=== PATIENT | male | born 1950 | race Hispanic/Latino ===

== ENCOUNTER 2018-05-07 10:20 | Day surgery (SDC) | payer OTHER ==
--- OUTSIDE RECORDS SUMMARY | 2018-05-07 10:26 | XMS REPORT | Clinical Summary ---
:1950 Author Organization [facility] Address [address] [place] [address] Phone Care Team Providers Name Role Phone Unavailable Primary Care Provider Unavailable Allergies No Known Allergies Current Medications Prescription Sig. Disp. Refills Start Date End Date Status omega-3 fatty Take 1,000 mg Active acids-vitamin E by mouth. 1,000 mg Cap [id number] Take by Active lic acid mouth. (FMOERATZDUAG-ILMA-N INERALS-FOLIC ACID) 3,500-18-0.4 unit-mg-mg Chew tacrolimus (PROGRAF) Take 2 360 capsule 3 04/09/2018 Active 1 MG capsules (2 9 capsuleIndications: mg total) by Status post liver mouth 2 (two) transplantation times daily. (HCC) predniSONE Take 3 90 tablet 0 04/26/2018 Active (DELTASONE) 20 MG tablets (60 8 tablet mg total) by mouth daily for 30 days. mycophenolate Take 2 360 capsule 3 04/26/2018 Active (CELLCEPT) 250 mg capsules (500 9 capsuleIndications: mg total) by Status post liver mouth 2 (two) transplantation times daily. (HCC) magnesium oxide Take 400 mg Discontinued (MAG-OX) 400 mg by mouth 8 tablet daily. calcium Take 1 tablet Discontinued carbonate-vitamin D3 by mouth 8 (CALCIUM-VITAMIN D) daily. 500 mg(1,250mg) -200 unit per tablet tacrolimus (PROGRAF) Take 1 mg by Discontinued 1 MG capsule mouth 2 (two) 8 times daily. mycophenolate Take 1 60 capsule 0 11/08/2016 Discontinued (CELLCEPT) 250 mg capsule (250 8 capsuleIndications: mg total) by Status post liver mouth 2 (two) transplantation times daily. (HCC) tacrolimus (PROGRAF) Take 1 60 capsule 0 11/08/2016 Discontinued 1 MG capsule (1 mg 8 capsuleIndications: total) by Status post liver mouth 2 (two) transplantation times daily. (HCC) mycophenolate Take 250 mg Discontinued (CELLCEPT) 250 mg by mouth 2 8 capsule (two) times daily. tacrolimus (PROGRAF) Take 1 180 capsule 3 04/09/2018 Discontinued 1 MG capsule (1 mg 8 capsuleIndications: total) by Status post liver mouth 2 (two) transplantation times daily. (HCC) mycophenolate Take 1 180 capsule 3 04/09/2018 Discontinued (CELLCEPT) 250 mg capsule (250 8 capsuleIndications: mg total) by Status post liver mouth 2 (two) transplantation times daily. (HCC) Active Problems Problem Noted Date Immunosuppression (HCC) 12/07/2014 Last Assessment & Plan: He is on tacrolimus and CellCept. Screening for malignant neoplasm 12/07/2014 Last Assessment & Plan: He will schedule a colonoscopy with his local assistant credit manager. He is due for an annual skin check with dermatology. 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 The synthetic function of the liver is well preserved. Hepatitis C 07/22/2013 Last Assessment & Plan: He was treated in 2008 and achieved SVR (cure). HCV RNA today. 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 He is able to exercise without trouble. Healthcare maintenance 07/22/2013 Last Assessment & Plan: Instruction discussed - see below. Encounters Date Type Specialty Care Team Description 05/07/2018 Telephone Transplant Sharon Tijerina Follow-up (open Hepatology F, RN fracture) 05/06/2018 Orders Only Transplant Aydee Jama Status post liver Hepatology MD Laurita transplantation (HCC);Encounter for long-term (current) use of high-risk medication;Disorder of magnesium metabolism;Encounter for therapeutic drug monitoring 05/06/2018 Telephone Transplant eR Mclean on finger Hepatology MERY Olsen 05/05/2018 Telephone Transplant Alda Foreman Medication Management Hepatology P, RN (Tylenol and Levoquin) 05/01/2018 Telephone Transplant Sharon Tijerina Follow-up Hepatology F, RN 04/26/2018 Orders Only Transplant Avtar Tijerinaa Status post liver Hepatology F, RN transplantation (HCC) 04/26/2018 Telephone Transplant Sharon Tijerina Medication Dose Change Hepatology F, RN 04/25/2018 Orders Only Transplant Aydee Jama Status post liver Hepatology MD Laurita transplantation (HCC);Encounter for long-term (current) use of high-risk medication;Disorder of magnesium metabolism;Encounter for therapeutic drug monitoring 04/24/2018 Telephone Transplant Sharon Tijerina Follow-up Hepatology F, RN 04/24/2018 Telephone Transplant Sharon Tijerina health care concerns Hepatology F, RN 04/22/2018 Hospital Encounter Crisotbal Perez Status post liver transplantation (HCC) 04/19/2018 Orders Only Transplant Bhargavi Waldron RN 04/09/2018 Follow-Up Transplant Marco Larson Status post liver Hepatology MD Trev transplantation (HCC) Cristobal Perez MD 04/09/2018 Orders Only Transplant Aydee Jama Status post liver Hepatology MD Laurita transplantation (HCC);Encounter for long-term (current) use of high-risk medication;Disorder of magnesium metabolism;Encounter for therapeutic drug monitoring 04/09/2018 Orders Only Transplant Avtar Tijerinaa Status post liver Hepatology Rosibel RN transplantation (HCC) 04/09/2018 Documentation Transplant Anibal Tysonology An 04/08/2018 Telephone Transplant Avtar Tijerinaa Follow-up Hepatology F, RN 04/04/2018 Documentation Transplant [place], Hepatology An 04/04/2018 Orders Only Transplant Avtar Tijerinaa Status post liver Hepatology F, RN transplantation (HCC) (Primary Dx);Encounter for long-term (current) use of high-risk medication;Disorder of magnesium metabolism;Encounter for therapeutic drug monitoring 06/25/2017 Documentation Transplant [place], Hepatology An after 05/06/2017 Social History Tobacco Use Types Packs/Day Years Used Date Never Smoker Smokeless Tobacco: Never Used Alcohol Use Drinks/Week oz/Week Comments No Sex Assigned at Date Recorded Not on file Last Filed Vital Signs Vital Sign Reading Time Taken Blood Pressure 121/77 04/22/2018 9:31 PM CDT Pulse 68 04/22/2018 9:31 PM CDT Temperature 36.6 C (97.8 F) 04/22/2018 3:15 PM CDT Respiratory Rate 16 04/22/2018 9:31 PM CDT Oxygen Saturation 100% 04/22/2018 5:39 PM CDT Inhaled Oxygen Concentration - - Weight 66.1 kg (145 lb 12.8 oz) 04/22/2018 10:05 AM CDT Height 175.3 cm (5' 9") 04/22/2018 10:05 AM CDT Body Mass Index 21.53 04/22/2018 10:05 AM CDT Plan of Treatment Health Maintenance Due Date Last Done Comments INFLUENZA VACCINE 07/15/2018 Results CBC with platelet count + automated diff (05/06/2018 6:45 AM)Only the most recent of3 resultswithin the time period is included. Component Value Ref Range WBC 11.1 (H) 3.5 - 10.5 K/L RBC 4.20 (L) 4.63 - 6.08 M/L Hemoglobin 12.5 (L) 13.7 - 17.5 GM/DL Hematocrit 38.2 (L) 40.1 - 51.0 % MCV 91.0 79.0 - 92.2 fL MCH 29.8 25.7 - 32.2 pg MCHC 32.7 32.3 - 36.5 GM/DL RDW 15.5 (H) 11.6 - 14.4 % Platelets 268 150 - 450 K/CU MM MPV 12.1 9.4 - 12.4 fL nRBC 0 0 - 0 /100 WBC % Neutros 66 % % Lymphs 25 % % Monos 9 % % Eos 0 % % Baso 0 % # Neutros 7.32 (H) 1.78 - 5.38 K/L # Lymphs 2.72 1.32 - 3.57 K/L # Monos 0.97 (H) 0.30 - 0.82 K/L # Eos 0.00 (L) 0.04 - 0.54 K/L # Baso 0.01 0.01 - 0.08 K/L Immature Granulocytes-Relative 1 0 - 1 % Specimen Performing Laboratory Blood [facility] [address] [address] Tacrolimus level (05/06/2018 6:45 AM)Only the most recent of3 resultswithin the time period is included. Component Value Ref Range Tacrolimus Lvl 7.9 (L) 10.0 - 20.0 ng/mL Specimen Performing Laboratory Blood [address] [address] CBC with platelet count + automated diff (05/06/2018 6:45 AM)Only the most recent of3 resultswithin the time period is included. Specimen Performing Laboratory Blood [facility]) Narrative The following orders were created for panel order CBC with platelet count + automated diff. Procedure Abnormality Status --------- ------ CBC with platelet count ...[[id number]]AbnormalFinal result Please view results for these tests on the individual orders. Magnesium (05/06/2018 6:44 AM)Only the most recent of3 resultswithin the time period is included. Component Value Ref Range Magnesium 2.0 1.6 - 2.6 mg/dL Specimen Performing Laboratory Blood [address] [address] Bilirubin, direct (05/06/2018 6:44 AM)Only the most recent of3 resultswithin the time period is included. Component Value Ref Range Bilirubin, Direct 0.9 (H) 0.1 - 0.5 mg/dL Specimen Performing Laboratory Blood [address] [address] Comprehensive metabolic panel (05/06/2018 6:44 AM)Only the most recent of3 resultswithin the time period is included. Component Value Ref Range Protein, Total 7.3 6.0 - 8.3 gm/dL Albumin 3.7 3.5 - 5.0 g/dL Alkaline Phosphatase 392 (H) 40 - 150 U/L Total Bilirubin 1.3 (H) 0.2 - 1.2 mg/dL Sodium 138 136 - 145 meq/L Potassium 3.6 3.5 - 5.1 meq/L Chloride 107 98 - 107 meq/L CO2 21 (L) 22 - 29 meq/L BUN 18 7 - 21 mg/dL Creatinine 0.82 0.57 - 1.25 mg/dL Glucose 114 (H) 70 - 105 mg/dL Calcium 9.1 8.4 - 10.2 mg/dL AST 57 (H) 5 - 34 U/L ALT 123 (H) 6 - 55 U/L EGFR 94Comment: ESTIMATED GFR IS NOT ACCURATE mL/min/1.73 sq m CREATININE CLEARANCE IN PREDICTING GLOMERULAR FILTRATION RATE. ESTIMATED GFR IS NOT APPLICABLE FOR DIALYSIS PATIENTS. Specimen Performing Laboratory Blood [facility] [address] [address] Tissue Exam (04/22/2018 11:01 PM) Component Value Ref Range Case Report Surgical Pathology Report Case: [id number] Authorizing Provider:Cristobal Perez MD Collected: 04/22/20182300 Ordering Location: [facility] Radiology Main Received: 04/22/20182304 Pathologist: Roney Mcdonald MD Specimen:Biopsy, Liver, Tx Bx ADDENDUM The addendum is being issued to report the results of immunostain for CK7 and C4d. The diagnosis is unchanged. RESULTS Immunostain for CK7 shows confirms focal absence of bile ducts. There is cholangiolar proliferation and biliary metaplasia of the hepatocytes. Immunostain for C4d is negative for significant staining. [address], [address] DIAGNOSIS LIVER ALLOGRAFT, ULTRASOUND-GUIDED NEEDLE BIOPSY (S/P OLT IN 2006) - ACUTE T-CELL MEDIATED REJECTION - CHRONIC DUCTOPENIC REJECTION - PORTAL/PERIPORTAL AND FOCAL BRIDGING FIBROSIS - SEE COMMENT Signing Pathologist Direct Phone Line: [phone] COMMENT Immunostains for C4d and CK7 are being performed and the results will be reported as an addendum. CPT Code(s) 57908, 83472 X 4 CLINICAL HISTORY S/P OLT for HCV in 2006, treated in 2010 now with SVR, presents with increase in transaminases and alkaline phosphatase SPECIMEN SOURCE Liver core biopsy MICROSCOPIC DESCRIPTION Section shows four variably sized cores of liver parenchyma with greater than 10 portal tracts and is adequate for evaluation. There is moderate portal lymphoplasmacytic inflammation with mild interface hepatitis. The bile ducts show moderate to marked bile duct damage with lymphocytic cholangitis. Ductopenia is noted in 11 of 19 portal tracts. Cholangiolar proliferation with associated neutrophils is seen. There is mild to moderate lobular inflammation. No significant steatosis, ballooning degeneration or Camila Denk hyaline is present. Small clusters of sinusoidal foam cells are present. Rare clu ster of foam cells is seen in the portal tract.There is canalicular cholestasis. Trichrome stain shows portal/periportal and focal bridging fibrosis. Iron stain shows 2+ to very focal 3+ staining in the hepatocytes. No hyaline globules are seen on PAS with diastase stain. Special stains: trichrome, reticulin, iron and PAS with diastase SPECIAL STUDIES The following special studies were performed on this case and the interpretation is incorporated in the diagnostic report above: The immunohistochemistry test was developed and its performance characteristics determined by [facility], Pathology Laboratory. It has not been cleared or approved by the U.S. Food and Drug Administration. The FDA has determined that such clearance or approval is not necessary. The test is used for clinical purposes. It should not be regarded as investigational or for research. This laboratory is certified under the Clinical Laboratory Improvement Amendments of 1988 (CLIA-88) as qualified to perform high complexity clinical laboratory testing. Specimen Performing Laboratory Tissue - Biopsy, [place] [address] US liver biopsy (04/22/2018 4:00 PM) Specimen Performing Laboratory GE RIS Narrative FINAL REPORT Biopsy: Pertinent clinical information: Ultrasound guided random transplant liver biopsy Modality: Sonography Conscious Sedation : Versed 0.5 mg and fentanyl 25 mcg intravenously During the procedure with conscious sedation, the patient was monitored continuously with pulse oximetry and electrocardiography by the attending radiologist and nursing personnel. Physician Patient face to face intraservice time: 25 minutes Anesthesia:Two percent Lidocaine injected subcutaneously at the insertion site. Approach: Right midaxillary intercostal Pathology specimen sent: Two core 16-gauge specimen Technique:After informed written consent was obtained, the patient was prepped and draped in the usual sterile manner.Access was obtained using sonographic guidance.A 16-gauge core biopsy needle was advanced into the transplant liver.Two passes were made through the liver. The patient tolerated the procedure well. The patient was monitored by a nurse during the procedure.Oxygen saturation, an ECG and blood pressure monitoring was performed throughout the procedure. Impression: Successful, uncomplicated ultrasound-guided random transplant liver biopsy Signed: Marie Alexandre MD Report Verified Date/Time:04/22/2018 17:39:27 Reading Location: [facility] [id number] Ultrasound Reading Room Procedure Note Interface, External Ris In - 04/22/2018 5:41 PM CDT FINAL REPORT Biopsy: Pertinent clinical information: Ultrasound guided random transplant liver biopsy Modality: Sonography Conscious Sedation : Versed 0.5 mg and fentanyl 25 mcg intravenously During the procedure with conscious sedation, the patient was monitored continuously with pulse oximetry and electrocardiography by the attending radiologist and nursing personnel. Physician Patient face to face intraservice time: 25 minutes Anesthesia: Two percent Lidocaine injected subcutaneously at the insertion site. Approach: Right midaxillary intercostal Pathology specimen sent: Two core 16-gauge specimen Technique: After informed written consent was obtained, the patient was prepped and draped in the usual sterile manner. Access was obtained using sonographic guidance. A 16-gauge core biopsy needle was advanced into the transplant liver. Two passes were made through the liver. The patient tolerated the procedure well. The patient was monitored by a nurse during the procedure. Oxygen saturation, an ECG and blood pressure monitoring was performed throughout the procedure. Impression: Successful, uncomplicated ultrasound-guided random transplant liver biopsy Signed: Marie Alexandre MD Report Verified Date/Time: 04/22/2018 17:39:27 Reading Location: [address] Ultrasound Reading Room /aPTT (04/22/2018 10:24 AM) Component Value Ref Range Protime 15.1 (H) 11.7 - 14.7 seconds INR 1.2 <=5.9 PTT 32.0 22.5 - 36.0 seconds Specimen Performing Laboratory Blood [address] [address] Narrative RECOMMENDED COUMADIN/WARFARIN INR THERAPY RANGES STANDARD DOSE: 2.0 - 3.0 Includes: PROPHYLAXIS for venous thrombosis, systemic embolization; TREATMENT for venous thrombosis and/or pulmonary embolus. HIGH RISK: Target INR is 2.5-3.5 for patients with mechanical heart valves. Platelet count (04/22/2018 10:24 AM) Component Value Ref Range Platelets 269 150 - 450 K/CU MM Specimen Performing Laboratory Blood [address] [address] Hepatitis C PCR, Quantitative (04/09/2018 8:22 AM) Component Value Ref Range HCV PCR, Quantitative HCV RNA not detected HCV RNA not detected Specimen Performing Laboratory Blood [address] [address] Narrative This test uses a Real-Time Polymerase Chain Reaction (RT-PCR) methodology and was performed using [employer] Ampliprep/NICOLETTE TaqMan HCV test kit version 2.0 ( [employer]). Reportable range for this assay is 15 - 100,000,000 IU per mL (1.18 - 8.00 Log IU/mL). Phosphorus (04/09/2018 8:22 AM) Component Value Ref Range Phosphorus 2.1 (L) 2.3 - 4.7 mg/dL Specimen Performing Laboratory Blood [address] [address] after 05/06/2017
--- OUTSIDE RECORDS SUMMARY | 2018-05-07 10:27 | XMS REPORT ---
:1950 [facility] Address [address] [place] [address] Dr. Mcdaniel [address] [place] [id number] Care Team Providers Name Role Phone SILVIA ZENDEJAS Unavailable Unavailable GISEL PEREZ Unavailable Unavailable Problems This patient has no known problems. Allergies, Adverse Reactions, Alerts This patient has no known allergies or adverse reactions. Medications This patient has no known medications. Results Test Description Test Time Test Comments Text Results Atomic Results Result Comments TISSUE EXAM 2018-05-06 13:45:00 Surgical Pathology Report Case: [id number] Authorizing Provider: Gisel Perez MD Collected: 04/22/20182300 Ordering Location: [facility] Radiology Main Received: 04/22/2018 Pathologist: Roney Mcdonald MD Specimen: Biopsy, Liver, Tx Bx The addendum is being issued to report the results of immunostain for CK7 and C4d. The diagnosis is unchanged.RESULTSImmunostain for CK7 shows confirms focal absence of bile ducts. There is cholangiolar proliferation and biliary metaplasia of the hepatocytes.Immunostain for C4d is negative for significant staining. [id number], [id number] electronically signed by Roney Mcdonald MD on 05/06/2018 at 1:45 PMLIVER ALLOGRAFT, ULTRASOUND-GUIDED NEEDLE BIOPSY (S/P OLT IN 2006)- ACUTE T-CELL MEDIATED REJECTION- CHRONIC DUCTOPENIC REJECTION- PORTAL/PERIPORTAL AND FOCAL BRIDGING FIBROSIS- SEE COMMENT Signing Pathologist Direct Phone Line: [phone] signed by Roney Mcdonald MD on 04/25/2018 at 11:44 AMPreliminary result electronically signed by Roney Mcdonald MD on 04/23/2018 at 5:58 PMImmunostains for C4d and CK7 are being performed and the results will be reported as an addendum.[id number], [id number] X 4S/P OLT for HCV in 2006, treated in 2010 now with SVR, presents with increase in transaminases and alkaline phosphatase Liver core biopsySection shows four variably sized cores of liver [...] of sinusoidal foam cells are present. Rare cluster of foam cells is seen in the portal tract. 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 Trichrome stain shows portal/periportal and focal bridging fibrosis. Iron stain shows 2+ to very focal 3+ staining in the hepatocytes. No hyaline globules are seen on PAS with diastase stain.Special stains: trichrome, reticulin, iron and PAS with diastaseThe following special studies were performed on this case and the interpretation is incorporated in the diagnostic report above:The immunohistochemistry test was developed and its performance characteristics determined by [facility], Pathology Laboratory. It has not been [...] to perform high complexity clinical laboratory testing. TACROLIMUS LEVEL 2018-05-06 11:16:00 Test Item Value Reference Range Comments TACROLIMUS BLOOD (BEAKER) (test crup=162) 7.9 ng/mL 10.0-20.0 [id number] 09:17:00 Test Item Value Reference Range Comments MAGNESIUM (BEAKER) (test oias=636) 2.0 mg/dL 1.6-2.6 COMPREHENSIVE METABOLIC [id number] 09:17:00 Test Item Value Reference Range Comments TOTAL PROTEIN (BEAKER) 7.3 gm/dL 6.0-8.3 (test ssrc=335) ALBUMIN (BEAKER) (test 3.7 g/dL 3.5-5.0 bhjo=2141) ALKALINE PHOSPHATASE 392 U/L 40-150 (BEAKER) (test tndp=073) BILIRUBIN TOTAL (BEAKER) 1.3 mg/dL 0.2-1.2 (test xoza=084) SODIUM (BEAKER) (test 138 meq/L 136-145 nmjm=060) POTASSIUM (BEAKER) (test 3.6 meq/L 3.5-5.1 bigj=087) CHLORIDE (BEAKER) (test 107 meq/L 98-107 bzss=746) CO2 (BEAKER) (test 21 meq/L 22-29 ovbq=564) BLOOD UREA NITROGEN 18 mg/dL 7-21 (BEAKER) (test fiov=852) CREATININE (BEAKER) (test 0.82 mg/dL 0.57-1.25 xwue=405) GLUCOSE RANDOM (BEAKER) 114 mg/dL 70-105 (test ibpf=553) CALCIUM (BEAKER) (test 9.1 mg/dL 8.4-10.2 lwzv=865) AST (SGOT) (BEAKER) (test 57 U/L 5-34 hvkr=598) ALT (SGPT) (BEAKER) (test 123 U/L 6-55 xisr=859) EGFR (BEAKER) (test 94 mL/min/1.73 sq m ESTIMATED GFR IS NOT ttbc=0978) ACCURATE CREATININE CLEARANCE IN PREDICTING GLOMERULAR FILTRATION RATE. ESTIMATED GFR IS NOT APPLICABLE FOR DIALYSIS PATIENTS. BILIRUBIN, [id number] 09:17:00 Test Item Value Reference Range Comments BILIRUBIN DIRECT (BEAKER) (test wcjf=688) 0.9 mg/dL 0.1-0.5 CBC W/PLT COUNT & AUTO [id number] 08:29:00 Test Item Value Reference Range Comments WHITE BLOOD CELL COUNT (BEAKER) (test lxip=280) 11.1 K/ L 3.5-10.5 RED BLOOD CELL COUNT (BEAKER) (test mzwd=870) 4.20 M/ L 4.63-6.08 HEMOGLOBIN (BEAKER) (test tegu=973) 12.5 GM/DL 13.7-17.5 HEMATOCRIT (BEAKER) (test kzur=067) 38.2 % 40.1-51.0 MEAN CORPUSCULAR VOLUME (BEAKER) (test syrj=429) 91.0 fL 79.0-92.2 MEAN CORPUSCULAR HEMOGLOBIN (BEAKER) (test 29.8 pg 25.7-32.2 ddrp=917) MEAN CORPUSCULAR HEMOGLOBIN CONC (BEAKER) (test 32.7 GM/DL 32.3-36.5 ejhv=462) RED CELL DISTRIBUTION WIDTH (BEAKER) (test 15.5 % 11.6-14.4 dpyg=753) PLATELET COUNT (BEAKER) (test cnwi=946) 268 K/CU MM 150-450 MEAN PLATELET VOLUME (BEAKER) (test bnrh=250) 12.1 fL 9.4-12.4 NUCLEATED RED BLOOD CELLS (BEAKER) (test 0 /100 WBC 0-0 cqls=802) NEUTROPHILS RELATIVE PERCENT (BEAKER) (test 66 % zlym=363) LYMPHOCYTES RELATIVE PERCENT (BEAKER) (test 25 % jfyd=704) MONOCYTES RELATIVE PERCENT (BEAKER) (test 9 % hzpn=408) EOSINOPHILS RELATIVE PERCENT (BEAKER) (test 0 % czet=653) BASOPHILS RELATIVE PERCENT (BEAKER) (test 0 % wifz=425) NEUTROPHILS ABSOLUTE COUNT (BEAKER) (test 7.32 K/ L 1.78-5.38 uqyq=649) LYMPHOCYTES ABSOLUTE COUNT (BEAKER) (test 2.72 K/ L 1.32-3.57 hhbq=916) MONOCYTES ABSOLUTE COUNT (BEAKER) (test 0.97 K/ L 0.30-0.82 jexh=107) EOSINOPHILS ABSOLUTE COUNT (BEAKER) (test 0.00 K/ L 0.04-0.54 oqmx=070) BASOPHILS ABSOLUTE COUNT (BEAKER) (test 0.01 K/ L 0.01-0.08 potm=288) IMMATURE GRANULOCYTES-RELATIVE PERCENT (BEAKER) 1 % 0-1 (test vynv=0899) TACROLIMUS [id number] 12:29:00 Test Item Value Reference Range Comments TACROLIMUS BLOOD (BEAKER) (test ergk=080) 12.9 ng/mL 10.0-20.0 [id number] 09:28:00 Test Item Value Reference Range Comments MAGNESIUM (BEAKER) (test dpwd=540) 1.7 mg/dL 1.6-2.6 COMPREHENSIVE METABOLIC [id number] 09:28:00 Test Item Value Reference Range Comments TOTAL PROTEIN (BEAKER) 8.3 gm/dL 6.0-8.3 (test aqod=412) ALBUMIN (BEAKER) (test 3.9 g/dL 3.5-5.0 gbzs=2235) ALKALINE PHOSPHATASE 541 U/L 40-150 (BEAKER) (test tfdo=022) BILIRUBIN TOTAL (BEAKER) 1.5 mg/dL 0.2-1.2 (test sujf=875) SODIUM (BEAKER) (test 139 meq/L 136-145 xbsa=769) POTASSIUM (BEAKER) (test 3.6 meq/L 3.5-5.1 fgvs=188) CHLORIDE (BEAKER) (test 106 meq/L 98-107 mqwd=830) CO2 (BEAKER) (test 23 meq/L 22-29 zogc=264) BLOOD UREA NITROGEN 14 mg/dL 7-21 (BEAKER) (test jkpu=568) CREATININE (BEAKER) (test 0.83 mg/dL 0.57-1.25 foct=793) GLUCOSE RANDOM (BEAKER) 106 mg/dL 70-105 (test msiz=893) CALCIUM (BEAKER) (test 9.6 mg/dL 8.4-10.2 basb=222) AST (SGOT) (BEAKER) (test 90 U/L 5-34 mnbc=555) ALT (SGPT) (BEAKER) (test 88 U/L 6-55 dtye=192) EGFR (BEAKER) (test 93 mL/min/1.73 sq m ESTIMATED GFR IS NOT tdma=7851) ACCURATE CREATININE CLEARANCE IN PREDICTING GLOMERULAR FILTRATION RATE. ESTIMATED GFR IS NOT APPLICABLE FOR DIALYSIS PATIENTS. BILIRUBIN, [id number] 09:28:00 Test Item Value Reference Range Comments BILIRUBIN DIRECT (BEAKER) (test ryzb=580) 1.0 mg/dL 0.1-0.5 CBC W/PLT COUNT & AUTO [id number] 08:52:00 Test Item Value Reference Range Comments WHITE BLOOD CELL COUNT (BEAKER) (test mtol=377) 5.7 K/ L 3.5-10.5 RED BLOOD CELL COUNT (BEAKER) (test bjiq=963) 4.44 M/ L 4.63-6.08 HEMOGLOBIN (BEAKER) (test vmsf=489) 13.3 GM/DL 13.7-17.5 HEMATOCRIT (BEAKER) (test gvvl=658) 41.2 % 40.1-51.0 MEAN CORPUSCULAR VOLUME (BEAKER) (test cspw=655) 92.8 fL 79.0-92.2 MEAN CORPUSCULAR HEMOGLOBIN (BEAKER) (test 30.0 pg 25.7-32.2 bkuc=902) MEAN CORPUSCULAR HEMOGLOBIN CONC (BEAKER) (test 32.3 GM/DL 32.3-36.5 aqjs=881) RED CELL DISTRIBUTION WIDTH (BEAKER) (test 15.3 % 11.6-14.4 ntid=682) PLATELET COUNT (BEAKER) (test ixmj=689) 249 K/CU MM 150-450 MEAN PLATELET VOLUME (BEAKER) (test gfkf=157) 12.0 fL 9.4-12.4 NUCLEATED RED BLOOD CELLS (BEAKER) (test 0 /100 WBC 0-0 fkfb=365) NEUTROPHILS RELATIVE PERCENT (BEAKER) (test 41 % lxvk=719) LYMPHOCYTES RELATIVE PERCENT (BEAKER) (test 43 % mzmx=847) MONOCYTES RELATIVE PERCENT (BEAKER) (test 12 % olfk=665) EOSINOPHILS RELATIVE PERCENT (BEAKER) (test 3 % eyvo=866) BASOPHILS RELATIVE PERCENT (BEAKER) (test 2 % dqnn=797) NEUTROPHILS ABSOLUTE COUNT (BEAKER) (test 2.35 K/ L 1.78-5.38 oqgl=004) LYMPHOCYTES ABSOLUTE COUNT (BEAKER) (test 2.45 K/ L 1.32-3.57 brjv=732) MONOCYTES ABSOLUTE COUNT (BEAKER) (test 0.67 K/ L 0.30-0.82 nqoq=016) EOSINOPHILS ABSOLUTE COUNT (BEAKER) (test 0.16 K/ L 0.04-0.54 scjn=557) BASOPHILS ABSOLUTE COUNT (BEAKER) (test 0.10 K/ L 0.01-0.08 uubd=156) IMMATURE GRANULOCYTES-RELATIVE PERCENT (BEAKER) 0 % 0-1 (test mlaq=4237) U/S, BIOPSY, [id number] 17:39:00Reason for Exam:->liver transplant Elevated liver enzymesLocation->[facility] Biopsy: Pertinent clinical information: Ultrasound guided random transplant liver biopsyModality: SonographyConscious Sedation : Versed 0.5 mg and fentanyl 25 mcg intravenouslyDuring the procedure with conscious sedation, the patient was monitored continuously withpulse oximetry and electrocardiography by the attending radiologist and nursing personnel.Physician Patient face to face intraservice time: 25 minutesAnesthesia : Two percent Lidocaine injected subcutaneously at the insertion site.Approach : Right midaxillary intercostal Pathology specimen sent: Two [...] blood pressure monitoring was performed throughout the procedure.Impression:Successful, uncomplicated ultrasound-guided random transplant liver biopsy Signed: Herrera Alexandre Verified Date/Time: 04/22/2018 17:39:27 Reading Location: [address] Ultrasound Reading Room Electronically signed by: HERRERA ALEXANDRE M.D. on 06/2018 05:39 [id number] 10:56:00 Test Item Value Reference Range Comments PROTIME (BEAKER) (test cynl=310) 15.1 seconds 11.7-14.7 INR (BEAKER) (test yqql=211) 1.2 <=5.9 PARTIAL THROMBOPLASTIN TIME (BEAKER) (test 32.0 seconds 22.5-36.0 pend=955) RECOMMENDED COUMADIN/WARFARIN INR THERAPY RANGESSTANDARD DOSE: 2.0 - 3.0 Includes: PROPHYLAXIS forvenous thrombosis, systemic embolization; TREATMENT for venous thrombosis and/or pulmonary embolus.HIGH RISK: Target INR is 2.5-3.5 for patients with mechanical heart valves.PLATELET [id number] 10:44:00 Test Item Value Reference Range Comments PLATELET COUNT (BEAKER) (test hvjm=031) 269 K/CU MM 150-450 HEPATITIS C PCR, [id number] 19:20:00 Test Item Value Reference Range Comments HCV RESULT COMPONENT (BEAKER) HCV RNA not detected HCV RNA not detected (test dddc=9610) This test uses a Real-Time Polymerase Chain Reaction (RT-PCR) methodology and was performed using [employer] Ampliprep/NICOLETTE TaqMan HCV test kit version 2.0 ( [employer]).Reportable range for this assay is 15 - 100,000, 000 IU per mL (1.18 - 8.00 Log IU/mL).TACROLIMUS [id number] 12:56:00 Test Item Value Reference Range Comments TACROLIMUS BLOOD (BEAKER) (test ezpm=013) 9.4 ng/mL 10.0-20.0 [id number] 09:48:00 Test Item Value Reference Range Comments PHOSPHORUS (BEAKER) (test qypb=883) 2.1 mg/dL 2.3-4.7 [id number] 09:48:00 Test Item Value Reference Range Comments MAGNESIUM (BEAKER) (test wihx=419) 2.2 mg/dL 1.6-2.6 COMPREHENSIVE METABOLIC [id number] 09:48:00 Test Item Value Reference Range Comments TOTAL PROTEIN (BEAKER) 8.1 gm/dL 6.0-8.3 (test rbca=114) ALBUMIN (BEAKER) (test 3.8 g/dL 3.5-5.0 cxtl=2381) ALKALINE PHOSPHATASE 534 U/L 40-150 (BEAKER) (test byil=921) BILIRUBIN TOTAL (BEAKER) 1.8 mg/dL 0.2-1.2 (test jjle=553) SODIUM (BEAKER) (test 139 meq/L 136-145 qjvt=120) POTASSIUM (BEAKER) (test 4.4 meq/L 3.5-5.1 eque=930) CHLORIDE (BEAKER) (test 104 meq/L 98-107 aixu=983) CO2 (BEAKER) (test 28 meq/L 22-29 qxbe=938) BLOOD UREA NITROGEN 16 mg/dL 7-21 (BEAKER) (test kmku=924) CREATININE (BEAKER) (test 0.78 mg/dL 0.57-1.25 rrro=367) GLUCOSE RANDOM (BEAKER) 106 mg/dL 70-105 (test culw=969) CALCIUM (BEAKER) (test 9.5 mg/dL 8.4-10.2 lnod=636) AST (SGOT) (BEAKER) (test 80 U/L 5-34 iisq=175) ALT (SGPT) (BEAKER) (test 74 U/L 6-55 xamk=614) EGFR (BEAKER) (test 100 mL/min/1.73 sq ESTIMATED GFR IS NOT vgrv=7743) m ACCURATE CREATININE CLEARANCE IN PREDICTING GLOMERULAR FILTRATION RATE. ESTIMATED GFR IS NOT APPLICABLE FOR DIALYSIS PATIENTS. BILIRUBIN, [id number] 09:48:00 Test Item Value Reference Range Comments BILIRUBIN DIRECT (BEAKER) (test hfbf=468) 1.1 mg/dL 0.1-0.5 CBC W/PLT COUNT & AUTO [id number] 09:33:00 Test Item Value Reference Range Comments WHITE BLOOD CELL COUNT (BEAKER) (test gswv=574) 5.1 K/ L 3.5-10.5 RED BLOOD CELL COUNT (BEAKER) (test ncwv=309) 4.56 M/ L 4.63-6.08 HEMOGLOBIN (BEAKER) (test bcph=630) 13.6 GM/DL 13.7-17.5 HEMATOCRIT (BEAKER) (test qpiu=878) 42.9 % 40.1-51.0 MEAN CORPUSCULAR VOLUME (BEAKER) (test xwpb=628) 94.1 fL 79.0-92.2 MEAN CORPUSCULAR HEMOGLOBIN (BEAKER) (test 29.8 pg 25.7-32.2 dehs=602) MEAN CORPUSCULAR HEMOGLOBIN CONC (BEAKER) (test 31.7 GM/DL 32.3-36.5 cbzt=290) RED CELL DISTRIBUTION WIDTH (BEAKER) (test 15.6 % 11.6-14.4 nkip=749) PLATELET COUNT (BEAKER) (test fcxa=234) 251 K/CU MM 150-450 MEAN PLATELET VOLUME (BEAKER) (test lkav=903) 12.2 fL 9.4-12.4 NUCLEATED RED BLOOD CELLS (BEAKER) (test 0 /100 WBC 0-0 ksvg=349) NEUTROPHILS RELATIVE PERCENT (BEAKER) (test 42 % ekjt=575) LYMPHOCYTES RELATIVE PERCENT (BEAKER) (test 39 % hofo=258) MONOCYTES RELATIVE PERCENT (BEAKER) (test 13 % afhz=499) EOSINOPHILS RELATIVE PERCENT (BEAKER) (test 3 % avjs=340) BASOPHILS RELATIVE PERCENT (BEAKER) (test 2 % ztyf=095) NEUTROPHILS ABSOLUTE COUNT (BEAKER) (test 2.14 K/ L 1.78-5.38 xweo=763) LYMPHOCYTES ABSOLUTE COUNT (BEAKER) (test 1.99 K/ L 1.32-3.57 izhu=553) MONOCYTES ABSOLUTE COUNT (BEAKER) (test 0.63 K/ L 0.30-0.82 ktqn=241) EOSINOPHILS ABSOLUTE COUNT (BEAKER) (test 0.17 K/ L 0.04-0.54 illc=417) BASOPHILS ABSOLUTE COUNT (BEAKER) (test 0.12 K/ L 0.01-0.08 dwup=761) IMMATURE GRANULOCYTES-RELATIVE PERCENT (BEAKER) 0 % 0-1 (test pocd=7288)
[2018-05-07] MEDS ORDERED: CEFAZOLIN/SWI 1gm 1 GM/10 ML SYR ONE (11:02)
[2018-05-07 11:04] LABS: Absolute Lymphocytes (CBC) 4.3 K/uL (0.7-4.9); Absolute Neutrophil 5.7 K/uL (1.8-8.0); Basophils % 0.1 % (0-1.3); Eosinophils % 0.2 % (0-4.4); Hematocrit 38.8 % (39.6-49.0); Lymphocytes % 38.9 % (15.3-44.8); MCH 31.1 pg (27.0-35.0); MCV 90.7 fL (80-100); MPV 10.2 fL (7.6-11.3); Monocytes % 9.3 % (3.3-12.3); RBC Red Blood Cell Count 4.28 M/uL (4.33-5.43)
[2018-05-07] MEDS ORDERED: PROPOFOL 200 MG/20 ML VIAL IV ONE (11:41)
[2018-05-07] MEDS ORDERED: MIDAZOLAM HCL 2 MG/2 ML INJ ONE (11:41)
[2018-05-07] MEDS ORDERED: FENTANYL CITR 100 MCG/2 ML ONE ×2 (11:41→13:20)
[2018-05-07] MEDS ORDERED: LIDOCAINE 1% MPF 5 ML VIAL ONE (11:41)
[2018-05-07] MEDS: Ringers Lactate 1,000 ML IV ONE ×2 (12:56→14:02)
[2018-05-07] MEDS ORDERED: EPHEDRINE SULF 50 MG/10 ML SYR ONE (13:00)
[2018-05-07] MEDS ORDERED: ONDANSETRON HCL 40 MG/20 ML VIAL ONE (13:45)
--- NOTE | 2018-05-07 13:59 | RAD REPORT ---
EXAM DESCRIPTION: RAD - Hand Left 3 View - 05/07/2018 1:47 pm CLINICAL HISTORY: Surgical fixation of left second digit fracture COMPARISON: None. FINDINGS: Fluoroscopic assisted placement of fracture fixation hardware performed. There were 3 fluo roscopic images submitted. Fluoro time was 3.9 minutes. Cumulative dose was 2.61 mGy. IMPRESSION: Fluoroscopic assisted second proximal phalanx fracture repair as detailed.
[2018-05-07] MEDS ORDERED: MEPERIDINE HCL 50 MG/ML AMP ONE (14:20)
--- NOTE | 2018-05-07 18:27 | OP ---
Surgeon: Norberto Walters MD Preoperative Diagnosis: Open fracture of the left index finger, proximal phalanx. Postoperative Diagnoses: Open fracture of the left index finger, proximal phalanx, laceration of the ulnar digital nerve. Procedure Performed: Debridement of skin and subcutaneous tissue, simple closure 1.5, and 3 cm wound , microscopic dissection and repair of ulnar digital nerve, K-wire arthrodesis of proximal interphala ngeal joint and percutaneous pinning of the proximal phalanx after using a splint. Anesthesia: General. Procedure In Detail: After satisfactory induction of general anesthesia, the left arm was prepped wi th Betadine scrub, Betadine paint, and dry sterile drapes applied in the usual manner. Arm was eleva izabel with an Esmarch, tourniquet inflated to 250 mmHg. Hand was placed on [place] table. The patient dorsal volar laceration over the middle phalanx of the index finger. The wound extends distally. F laps were elevated. Dissection proceeded down. The flexor tendons were intact, but the sheath had b een violated. Wound was irrigated with dilute Betadine solution and then the microscope was brought in the field. The patient had transected the digital nerve on the ulnar side. The digital artery wa s intact and was identified, freshened by using straight micro scissors and then repaired with 9-0 ny krissy epineurial repair. The wound was then closed with 4-0 Prolene in vertical mattress. The hand wa s turned over. The previous sutures were removed. The skin and subcutaneous tissue were debrided. The wound was jet lavaged, irrigated, and then the C-arm was brought. K-wires were placed from dista l to proximal with the PIP flexed 90 degrees, then ultimately MCP at 90 degrees. Then they were pull ed proximally and then with the PIP in extension they were used and pulled the PIP arthrodesis into e xtension. Two K-wires were used, 0.035, then bent. X-rays were taken revealing adequate reduction. Tourniquet released. The wound was then closed with 4-0 Prolene vertical mattress on the dorsum, daily ssed with Xeroform 2 inch Kira, Kerlix, and fiberglass with the splint holding the wrist in 10 degre es of dorsiflexion, MCP 90, PIP and DIP 0. The patient tolerated the procedure well and returned to recovery. PANCHO/RITCHIE Voice ID: [id number] Report ID: [id number]
== END 2018-05-07 15:30 | disposition home or self-care (01) ==
LOC: OR 10:20
PROVIDERS: ATTEND Specialist
PROC: 0PSV04Z Reposition Left Finger Phalanx with Internal Fixation Device, Open Approach (ICD-10-PCS; 2018-05-07)
PROC: 0PSV04Z Reposition Left Finger Phalanx with Internal Fixation Device, Open Approach (ICD-10-PCS; 2018-05-07)
PROC: 01Q40ZZ Repair Ulnar Nerve, Open Approach (ICD-10-PCS; principal; 2018-05-07 11:15)
DX: S62.611B Displaced fracture of proximal phalanx of left index finger, initial encounter for open fracture (principal); X58.XXXA Exposure to other specified factors, initial encounter; Y93.9 Activity, unspecified; Y92.9 Unspecified place or not applicable; S64.02XA Injury of ulnar nerve at wrist and hand level of left arm, initial encounter
CPT/HCPCS: 11010; 26746; 36415; 64836; 73130; 85025; J0690; J2175; J2250; J2405; J3010 ×2

== ENCOUNTER 2018-06-03 13:13 | Inpatient (IN) | payer OTHER ==
--- OUTSIDE RECORDS SUMMARY | 2018-06-03 13:21 | XMS REPORT | Clinical Summary ---
:1950 Author Organization [facility] Address [address] [place] [address] Care Team Providers Name Role Phone Asked, No Pcp Primary Care Provider Unavailable Allergies Not on File Current Medications Not on file Active Problems Not on file Encounters Date Type Specialty Care Team Description 05/15/2018 Transcribe Orders Physical Therapy Norberto Walters Injury of digital nerve MD Mark of left little finger, initial encounter (Primary Dx) after 06/02/2017 Social History Tobacco Use Types Packs/Day Years Used Date Never Assessed Sex Assigned at Date Recorded Not on file Last Filed Vital Signs Not on file Plan of Treatment Health Maintenance Due Date Last Done Comments COLON CANCER SCREENING 2002 SHINGRIX VACCINE (#1) 2002 ZOSTER VACCINE 2012 PNEUMOCOCCAL POLYSACCHARIDE VACCINE AGE 65 AND OVER 2017 PNEUMOCOCCAL-13 2017 INFLUENZA VACCINE 05/15/2018 Results Not on fileafter 06/02/2017 Insurance Payer Benefit Plan / Group Subscriber ID Type Phone Address [facility] xxxxxxxxxx Commercial INSURANCE INSURANCE MEDICARE MEDICARE PART A AND B xxxxxxxxxx Medicare [place], [place] Work: [address] [phone] Home: [place], [place] [phone]
--- OUTSIDE RECORDS SUMMARY | 2018-06-03 13:21 | XMS REPORT | Clinical Summary ---
:1950 Author Organization [facility] Address [address] [place] [address] Phone Care Team Providers Name Role Phone Unavailable Primary Care Provider Unavailable Allergies No Known Allergies Current Medications Prescription Sig. Disp. Refills Start End Date Status Date omega-3 fatty Take 1,000 mg Active acids-vitamin E 1,000 by mouth. mg Cap fkfcvesz-pctt-lbo-foli Take by Active c acid mouth. ([id number]-[id number]-LBC ERALS-FOLIC ACID) 3,500-18-0.4 unit-mg-mg Chew mycophenolate Take 2 360 capsule 3 04/26/20 Active (CELLCEPT) 250 mg capsules (500 8 19 capsuleIndications: mg total) by Status post liver mouth 2 (two) transplantation (HCC) times daily. tacrolimus (PROGRAF) 1 Take 3 mg po 180 capsule 3 Active MG capsuleIndications: AM and Take 2 8 Status post liver mg po PM. transplantation (HCC) predniSONE (DELTASONE) Take 2 60 tablet 1 Active 20 MG tablets (40 8 tabletIndications: mg total) by Status post liver mouth daily. transplantation (HCC), Immunosuppression (HCC) magnesium oxide Take 400 mg 04/22/20 Discontinued (MAG-OX) 400 mg tablet by mouth 18 daily. calcium Take 1 tablet 04/22/20 Discontinued carbonate-vitamin D3 by mouth 18 (CALCIUM-VITAMIN D) daily. 500 mg(1,250mg) -200 unit per tablet tacrolimus (PROGRAF) 1 Take 1 mg by 04/19/20 Discontinued MG capsule mouth 2 (two) 18 times daily. mycophenolate Take 1 60 capsule 0 04/09/20 Discontinued (CELLCEPT) 250 mg capsule (250 7 18 capsuleIndications: mg total) by Status post liver mouth 2 (two) transplantation (HCC) times daily. tacrolimus (PROGRAF) 1 Take 1 60 capsule 0 04/09/20 Discontinued MG capsuleIndications: capsule (1 mg 7 18 Status post liver total) by transplantation (HCC) mouth 2 (two) times daily. mycophenolate Take 250 mg 04/19/20 Discontinued (CELLCEPT) 250 mg by mouth 2 18 capsule (two) times daily. tacrolimus (PROGRAF) 1 Take 1 180 capsule 3 04/09/20 Discontinued MG capsuleIndications: capsule (1 mg 8 18 Status post liver total) by transplantation (HCC) mouth 2 (two) times daily. tacrolimus (PROGRAF) 1 Take 2 360 capsule 3 05/17/20 Discontinued MG capsuleIndications: capsules (2 8 18 Status post liver mg total) by transplantation (HCC) mouth 2 (two) times daily. mycophenolate Take 1 180 capsule 3 04/26/20 Discontinued (CELLCEPT) 250 mg capsule (250 8 18 capsuleIndications: mg total) by Status post liver mouth 2 (two) transplantation (HCC) times daily. predniSONE (DELTASONE) Take 3 90 tablet 0 05/17/20 Discontinued 20 MG tablet tablets (60 8 18 mg total) by mouth daily for 30 days. predniSONE (DELTASONE) Take 2 60 tablet 0 05/31/20 Discontinued 20 MG tablets (40 8 18 tabletIndications: mg total) by Status post liver mouth daily. transplantation (HCC) Active Problems Problem Noted Date Immunosuppression (HCC) 12/07/2014 Last Assessment & Plan: He is on tacrolimus and CellCept. Screening for malignant neoplasm 12/07/2014 Last Assessment & Plan: He will schedule a colonoscopy with his local [facility]. He is due for an annual skin check with dermatology. 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/22/2013 Overview: ICD9 DX [place] Last Assessment & Plan: He received a [...] Encounters Date Type Specialty Care Team Description 06/03/2018 Telephone Transplant PackJeana newman on-call infection finger Hepatology MERY Aldrich 05/31/2018 Telephone Transplant [place], Medication Dose Change Hepatology MERY Burkett 05/31/2018 Orders Only Transplant [place], Immunosuppression (HCC) Hepatology MERY Burkett (Primary Dx);Status post liver transplantation (HCC) 05/27/2018 Orders Only Transplant Aydee Jama Status post liver Hepatology MD Laurita transplantation (HCC);Encounter for long-term (current) use of high-risk medication;Disorder of magnesium metabolism;Encounter for therapeutic drug monitoring 05/17/2018 Telephone Transplant [place], Follow-up Hepatology Sharon Gleason RN 05/13/2018 Orders Only Transplant Aydee Jama Status post liver Hepatology MD Laurita transplantation (HCC);Encounter for long-term (current) use of high-risk medication;Disorder of magnesium metabolism;Encounter for therapeutic drug monitoring 05/10/2018 Telephone Transplant [place], Labs Only (SPK W PTN RE: Hepatology An LAB/RX RESULTS; NO MED CHANGES; REPEAT BLD WK X1 WK; 05/13/2018; LIVER CLINIC; GGT;) 05/08/2018 Telephone Transplant [place], Pain medication Hepatology MERY Olsen 05/07/2018 Telephone Transplant [place], Follow-up (open Hepatology Sharon Gleason RN fracture) 05/06/2018 Orders Only Transplant Aydee Jama Status post liver Hepatology MD Laurita transplantation (HCC);Encounter for long-term (current) use of high-risk medication;Disorder of magnesium metabolism;Encounter for therapeutic drug monitoring 05/06/2018 Telephone Transplant [place], Surgery on finger Hepatology MERY Olsen 05/05/2018 Telephone Transplant Alda Foreman Medication Management Hepatology P RN (Tylenol and Levoquin) 05/01/2018 Telephone Transplant [place], Follow-up Hepatology Sharon Gleason RN 04/26/2018 Orders Only Transplant [place], Status post liver Hepatology Sharon Gleason RN transplantation (HCC) 04/26/2018 Telephone Transplant [place], Medication Dose Change Anibalology Sharon Gleason RN 04/25/2018 Orders Only Transplant Aydee Jama Status post liver Hepatology MD Laurita transplantation (HCC);Encounter for long-term (current) use of high-risk medication;Disorder of magnesium metabolism;Encounter for therapeutic drug monitoring 04/24/2018 Telephone Transplant [place], Follow-up Bhargavi Gleason RN 04/24/2018 Telephone Transplant [place], health care concerns Anibalology Sharon Gleason RN 04/22/2018 Hospital Encounter Cristobal Perez Status post liver MD Paco transplantation (HCC) 04/19/2018 Orders Only Transplant Bhargavi Waldron RN 04/09/2018 Follow-Up Transplant [place], Status post liver Hepatology Marco Karimi MD transplantation (HCC) Cristobal ePrez MD 04/09/2018 Orders Only Transplant Aydee Jama Status post liver Hepatology MD Laurita transplantation (HCC);Encounter for long-term (current) use of high-risk medication;Disorder of magnesium metabolism;Encounter for therapeutic drug monitoring 04/09/2018 Orders Only Transplant [place], Status post liver Hepatology Sharon Gleason RN transplantation (HCC) 04/09/2018 Documentation Transplant Anibal Tysonology An 04/08/2018 Telephone Transplant [place], Follow-up Hepatology Sharon Gleason RN 04/04/2018 Documentation Transplant Anibal Tysonology An 04/04/2018 Orders Only Transplant [place], Status post liver Hepatology Sharon Gleason RN transplantation (HCC) (Primary Dx);Encounter for long-term (current) use of high-risk medication;Disorder of magnesium metabolism;Encounter for therapeutic drug monitoring 06/25/2017 Documentation Transplant [place], Hepatology An after 06/02/2017 Social History Tobacco Use Types [...] 04/22/2018 10:05 AM CDT Plan of Treatment Date Type Specialty Care Team Description 06/06/2018 Orders Only Transplant Hepatology Health Maintenance Due Date Last Done Comments INFLUENZA VACCINE 07/15/2018 Results CBC with platelet count + automated diff (05/27/2018 6:46 AM)Only the most recent of5 resultswithin the time period is included. Component Value Ref Range WBC 9.7 3.5 - 10.5 K/L RBC 4.42 (L) 4.63 - 6.08 M/L Hemoglobin 13.6 (L) 13.7 - 17.5 GM/DL Hematocrit 40.2 40.1 - 51.0 % MCV 91.0 79.0 - 92.2 fL MCH 30.8 25.7 - 32.2 pg MCHC 33.8 32.3 - 36.5 GM/DL RDW 15.2 (H) 11.6 - 14.4 % Platelets 217 150 - 450 K/CU MM MPV 12.3 9.4 - 12.4 fL nRBC 0 0 - 0 /100 WBC % Neutros 62 % % Lymphs 30 % % Monos 8 % % Eos 0 % % Baso 0 % # Neutros 5.98 (H) 1.78 - 5.38 K/L # Lymphs 2.87 1.32 - 3.57 K/L # Monos 0.73 0.30 - 0.82 K/L # Eos 0.02 (L) 0.04 - 0.54 K/L # Baso 0.02 0.01 - 0.08 K/L Immature Granulocytes-Relative 0 0 - 1 % Specimen Performing Laboratory Blood [address] [address] Tacrolimus level (05/27/2018 6:46 AM)Only the most recent of5 resultswithin the time period is included. Component Value Ref Range Tacrolimus Lvl 9.2 (L) 10.0 - 20.0 ng/mL Specimen Performing Laboratory Blood [address] [address] CBC with platelet count + automated diff (05/27/2018 6:46 AM)Only the most recent of5 resultswithin the time period is included. Specimen Performing Laboratory Blood [facility] Narrative The following orders were created for panel order CBC with platelet count + automated diff. Procedure Abnormality Status --------- ------ CBC with platelet count ...[[id number]]AbnormalFinal result Please view results for these tests on the individual orders. Magnesium (05/27/2018 6:46 AM)Only the most recent of5 resultswithin the time period is included. Component Value Ref Range Magnesium 2.1 1.6 - 2.6 mg/dL Specimen Performing Laboratory Blood [address] [address] Bilirubin, direct (05/27/2018 6:46 AM)Only the most recent of5 resultswithin the time period is included. Component Value Ref Range Bilirubin, Direct 1.2 (H) 0.1 - 0.5 mg/dL Specimen Performing Laboratory Blood [address] [address] Comprehensive metabolic panel (05/27/2018 6:46 AM)Only the most recent of5 resultswithin the time period is included. Component Value Ref Range Protein, Total 7.7 6.0 - 8.3 gm/dL Albumin 3.9 3.5 - 5.0 g/dL Alkaline Phosphatase 501 (H) 40 - 150 U/L Total Bilirubin 2.0 (H) 0.2 - 1.2 mg/dL Sodium 132 (L) 136 - 145 meq/L Potassium 4.0 3.5 - 5.1 meq/L Chloride 98 98 - 107 meq/L CO2 20 (L) 22 - 29 meq/L BUN 23 (H) 7 - 21 mg/dL Creatinine 1.10 0.57 - 1.25 mg/dL Glucose 342 (H) 70 - 105 mg/dL Calcium 10.2 8.4 - 10.2 mg/dL AST 71 (H) 5 - 34 U/L ALT 160 (H) 6 - 55 U/L EGFR 67Comment: ESTIMATED GFR IS NOT ACCURATE mL/min/1.73 sq m CREATININE CLEARANCE IN PREDICTING GLOMERULAR FILTRATION RATE. ESTIMATED GFR IS NOT APPLICABLE FOR DIALYSIS PATIENTS. Specimen Performing Laboratory Blood [facility] [address] [address] Tissue Exam (04/22/2018 11:01 PM) Component Value Ref Range Case Report Surgical Pathology Report Case: [id number] Authorizing Provider:Cristobal Perez MD Collected: 04/22/20182300 Ordering Location: [facility] Radiology Main Received: 04/22/20183 Pathologist: Roney Mcdonald MD Specimen:Biopsy, Liver, Tx Bx ADDENDUM The addendum is being issued to report the results of immunostain for CK7 and C4d. The diagnosis is unchanged. RESULTS Immunostain for CK7 shows confirms focal absence of bile ducts. There is cholangiolar proliferation and biliary metaplasia of the hepatocytes. Immunostain for C4d is negative for significant staining. [address]661, [address] DIAGNOSIS LIVER ALLOGRAFT, ULTRASOUND-GUIDED NEEDLE BIOPSY (S/P OLT IN 2006) - ACUTE T-CELL MEDIATED REJECTION - CHRONIC DUCTOPENIC REJECTION - PORTAL/PERIPORTAL AND FOCAL BRIDGING FIBROSIS - SEE COMMENT Signing Pathologist Direct Phone Line: [phone] COMMENT Immunostains for C4d and CK7 are being performed and the results will be reported as an addendum. CPT Code(s) 51442, 44155 X 4 CLINICAL HISTORY S/P OLT for [...] developed and its performance characteristics determined by [facility], Pathology Laboratory. It has not been cleared [...] Specimen Performing Laboratory Tissue - Biopsy, Liver [address] [address] US abdominal with doppler (04/22/2018 5:00 PM) Specimen Performing Laboratory [place] Narrative FINAL REPORT Abdominal Doppler Ultrasound Clinical Diagnosis: Evaluate hepatic vessels status post liver transplant with elevated liver function tests Comparison: November 2014 Technique: Multiple transaxial and longitudinal images were obtained through the abdomen with real time ultrasonography.In addition, color Doppler and spectral waveform analysis evaluation of the abdominal vasculature was performed.FiveMHz transducer was utilized.116 images were submitted for interpretation. Report: Liver: The liver measures 13.3 cm in the right midaxillary line. There are no focal masses.The echogenicity is homogenous. Spleen: The spleen measures 9.6 cm. in the left mid axillary line. Gallbladder: Gallbladder is been surgically removed Biliary tree: There is no evidence of intra or extra hepatic biliary ductal dilatation.The common bile duct measures four mm. Portal vein: The portal vein measures 12 mm. Pancreas:The pancreatic tail is not well seen secondary to overlying bowel gas. Ascites: Negative Pleural Effusion: Negative Right kidney: The right kidney measures 8.2 cm. in length without evidence of hydronephrosis. Left kidney: Theleft kidney measures 11.2 cm. in length without evidence of hydronephrosis. Midline abdominal structures: Maximum transverse dimension of aorta is 2.1 cm IVC: Patent Hepatic veins: Visualized with phasic venous waveforms Aorta dimensions: Maximum transverse dimension proximally is 2.1 cm Hepatic arteries: The proper hepatic, right hepatic and left hepatic arteries are well-visualized with a nonspecific increase in the resistive indices. There are normal arterial waveforms Portal vein: The peak systolic velocity measured 19.3 cm/sec which is within normal limits. The direction of flow is hepatopedal. The right portal vein is visualized with hepatopedal flow.The left portal vein is visualized with hepatopedal flow. Splenic vein:The splenic vein at the portal confluence is visualized and demonstrates hepatopedal flow. Impression: Status post liver transplant and cholecystectomy. Interval decrease in the size of the right kidney as compared to the prior study. Nonspecific increased resistive indices through the hepatic arterial circulation otherwise unremarkable Doppler interrogation. Signed: Marie Alexandre MD Report Verified Date/Time:05/08/2018 12:22:52 Reading Location: [place] [id number] Ultrasound Reading Room Procedure Note Interface, External Ris In - 05/08/2018 12:23 PM CDT FINAL REPORT Abdominal Doppler Ultrasound Clinical Diagnosis: Evaluate hepatic vessels status post liver transplant with elevated liver function tests Comparison: November 2014 Technique: Multiple transaxial and longitudinal images were obtained through the abdomen with real time ultrasonography. In addition, color Doppler and spectral waveform analysis evaluation of the abdominal vasculature was performed. Five MHz transducer was utilized. 116 images were submitted for interpretation. Report: Liver: The liver measures 13.3 cm in the right midaxillary line. There are no focal masses. The echogenicity is homogenous. Spleen: The spleen measures 9.6 cm. in the left mid axillary line. Gallbladder: Gallbladder is been surgically removed Biliary tree: There is no evidence of intra or extra hepatic biliary ductal dilatation. The common bile duct measures four mm. Portal vein: The portal vein measures 12 mm. Pancreas: The pancreatic tail is not well seen secondary to overlying bowel gas. Ascites: Negative Pleural Effusion: Negative Right kidney: The right kidney measures 8.2 cm. in length without evidence of hydronephrosis. Left kidney: The left kidney measures 11.2 cm. in length without evidence of hydronephrosis. Midline abdominal structures: Maximum transverse dimension of aorta is 2.1 cm IVC: Patent Hepatic veins: Visualized with phasic venous waveforms Aorta dimensions: Maximum transverse dimension proximally is 2.1 cm Hepatic arteries: The proper hepatic, right hepatic and left hepatic arteries are well-visualized with a nonspecific increase in the resistive indices. There are normal arterial waveforms Portal vein: The peak systolic velocity measured 19.3 cm/sec which is within normal limits. The direction of flow is hepatopedal. The right portal vein is visualized with hepatopedal flow. The left portal vein is visualized with hepatopedal flow. Splenic vein: The splenic vein at the portal confluence is visualized and demonstrates hepatopedal flow. Impression: Status post liver transplant and cholecystectomy. Interval decrease in the size of the right kidney as compared to the prior study. Nonspecific increased resistive indices through the hepatic arterial circulation otherwise unremarkable Doppler interrogation. Signed: Marie Alexandre MD Report Verified Date/Time: 05/08/2018 12:22:52 Reading Location: [address] Ultrasound Reading Room liver biopsy (04/22/2018 4:00 PM) Specimen Performing Laboratory [place] Narrative FINAL REPORT Biopsy: Pertinent clinical information: [...] MD Report Verified Date/Time:04/22/2018 17:39:27 Reading Location: [address] Ultrasound Reading Room Procedure Note Interface, External [...] Report Verified Date/Time: 04/22/2018 17:39:27 Reading Location: [address] Ultrasound Reading Room /aPTT (04/22/2018 10:24 AM) Component Value Ref Range Protime 15.1 (H) 11.7 - 14.7 seconds INR 1.2 <=5.9 PTT 32.0 22.5 - 36.0 seconds Specimen Performing Laboratory [address] [address] Narrative RECOMMENDED COUMADIN/WARFARIN INR THERAPY RANGES STANDARD DOSE: 2.0 - 3.0 Includes: PROPHYLAXIS for venous thrombosis, systemic embolization; TREATMENT for venous thrombosis and/or pulmonary embolus. HIGH RISK: Target INR is 2.5-3.5 for patients with mechanical heart valves. Platelet count (04/22/2018 10:24 AM) Component Value Ref Range Platelets 269 150 - 450 K/CU MM Specimen Performing Laboratory [address] [address] Hepatitis C PCR, Quantitative (04/09/2018 8:22 AM) Component Value Ref Range HCV PCR, Quantitative HCV RNA not detected HCV RNA not detected Specimen Performing Laboratory [address] [address] Narrative This test uses a Real-Time Polymerase Chain Reaction (RT-PCR) methodology and was performed using NICOLE[employer]E Ampliprep/NICOLETTE TaqMan HCV test kit version 2.0 ( [employer]). Reportable range for this assay is 15 - 100,000,000 IU per mL (1.18 - 8.00 Log IU/mL). Phosphorus (04/09/2018 8:22 AM) Component Value Ref Range Phosphorus 2.1 (L) 2.3 - 4.7 mg/dL Specimen Performing Laboratory [place] [address] after 06/02/2017
--- OUTSIDE RECORDS SUMMARY | 2018-06-03 13:22 | XMS REPORT ---
:1950 [facility] Address [address] [place] [address] Dr. M[address]iel [address] [place] [id number] Care Team Providers Name Role Phone SILVIA ZENDEJAS Unavailable Unavailable GISEL PEREZ Unavailable Unavailable Problems This patient has no known problems. Allergies, Adverse Reactions, Alerts This patient has no known allergies or adverse reactions. Medications This patient has no known medications. Results Test Description Test Time Test Comments Text Results Atomic Results Result Comments TACROLIMUS LEVEL 2018-05-27 13:58:00 Test Item Value Reference Range Comments TACROLIMUS BLOOD (BEAKER) (test guqt=050) 9.2 ng/mL 10.0-20.0 [id number] 09:16:00 Test Item Value Reference Range Comments MAGNESIUM (BEAKER) (test pnbf=048) 2.1 mg/dL 1.6-2.6 COMPREHENSIVE METABOLIC [id number] 09:16:00 Test Item Value Reference Range Comments TOTAL PROTEIN (BEAKER) 7.7 gm/dL 6.0-8.3 (test vdsa=696) ALBUMIN (BEAKER) (test 3.9 g/dL 3.5-5.0 djux=6398) ALKALINE PHOSPHATASE 501 U/L 40-150 (BEAKER) (test ypym=101) BILIRUBIN TOTAL (BEAKER) 2.0 mg/dL 0.2-1.2 (test hvnt=013) SODIUM (BEAKER) (test 132 meq/L 136-145 lonh=151) POTASSIUM (BEAKER) (test 4.0 meq/L 3.5-5.1 ourj=427) CHLORIDE (BEAKER) (test 98 meq/L 98-107 kkvm=255) CO2 (BEAKER) (test 20 meq/L 22-29 eefc=787) BLOOD UREA NITROGEN 23 mg/dL 7-21 (BEAKER) (test pibw=468) CREATININE (BEAKER) (test 1.10 mg/dL 0.57-1.25 vbjq=636) GLUCOSE RANDOM (BEAKER) 342 mg/dL 70-105 (test livn=967) CALCIUM (BEAKER) (test 10.2 mg/dL 8.4-10.2 krpi=306) AST (SGOT) (BEAKER) (test 71 U/L 5-34 dphq=652) ALT (SGPT) (BEAKER) (test 160 U/L 6-55 tulo=210) EGFR (BEAKER) (test 67 mL/min/1.73 sq m ESTIMATED GFR IS NOT ezsw=2428) ACCURATE CREATININE CLEARANCE IN PREDICTING GLOMERULAR FILTRATION RATE. ESTIMATED GFR IS NOT APPLICABLE FOR DIALYSIS PATIENTS. BILIRUBIN, [id number] 09:16:00 Test Item Value Reference Range Comments BILIRUBIN DIRECT (BEAKER) (test oatg=583) 1.2 mg/dL 0.1-0.5 CBC W/PLT COUNT & AUTO [id number] 08:56:00 Test Item Value Reference Range Comments WHITE BLOOD CELL COUNT (BEAKER) (test apek=028) 9.7 K/ L 3.5-10.5 RED BLOOD CELL COUNT (BEAKER) (test ixzp=176) 4.42 M/ L 4.63-6.08 HEMOGLOBIN (BEAKER) (test rtlh=032) 13.6 GM/DL 13.7-17.5 HEMATOCRIT (BEAKER) (test erph=990) 40.2 % 40.1-51.0 MEAN CORPUSCULAR VOLUME (BEAKER) (test evet=187) 91.0 fL 79.0-92.2 MEAN CORPUSCULAR HEMOGLOBIN (BEAKER) (test 30.8 pg 25.7-32.2 nnom=794) MEAN CORPUSCULAR HEMOGLOBIN CONC (BEAKER) (test 33.8 GM/DL 32.3-36.5 nrqt=416) RED CELL DISTRIBUTION WIDTH (BEAKER) (test 15.2 % 11.6-14.4 fral=173) PLATELET COUNT (BEAKER) (test hwzk=362) 217 K/CU MM 150-450 MEAN PLATELET VOLUME (BEAKER) (test yirz=007) 12.3 fL 9.4-12.4 NUCLEATED RED BLOOD CELLS (BEAKER) (test 0 /100 WBC 0-0 qygn=791) NEUTROPHILS RELATIVE PERCENT (BEAKER) (test 62 % onhq=660) LYMPHOCYTES RELATIVE PERCENT (BEAKER) (test 30 % exnz=778) MONOCYTES RELATIVE PERCENT (BEAKER) (test 8 % xypw=046) EOSINOPHILS RELATIVE PERCENT (BEAKER) (test 0 % bsrj=067) BASOPHILS RELATIVE PERCENT (BEAKER) (test 0 % ltyl=457) NEUTROPHILS ABSOLUTE COUNT (BEAKER) (test 5.98 K/ L 1.78-5.38 bfrd=257) LYMPHOCYTES ABSOLUTE COUNT (BEAKER) (test 2.87 K/ L 1.32-3.57 xeyp=280) MONOCYTES ABSOLUTE COUNT (BEAKER) (test 0.73 K/ L 0.30-0.82 ylfo=851) EOSINOPHILS ABSOLUTE COUNT (BEAKER) (test 0.02 K/ L 0.04-0.54 olqe=594) BASOPHILS ABSOLUTE COUNT (BEAKER) (test 0.02 K/ L 0.01-0.08 kfft=145) IMMATURE GRANULOCYTES-RELATIVE PERCENT (BEAKER) 0 % 0-1 (test mxhu=1736) TACROLIMUS [id number] 11:33:00 Test Item Value Reference Range Comments TACROLIMUS BLOOD (BEAKER) (test obxl=506) 6.6 ng/mL 10.0-20.0 [id number] 08:54:00 Test Item Value Reference Range Comments MAGNESIUM (BEAKER) (test lacj=520) 2.1 mg/dL 1.6-2.6 COMPREHENSIVE METABOLIC [id number] 08:54:00 Test Item Value Reference Range Comments TOTAL PROTEIN (BEAKER) 7.1 gm/dL 6.0-8.3 (test burw=258) ALBUMIN (BEAKER) (test 3.6 g/dL 3.5-5.0 ngqi=2916) ALKALINE PHOSPHATASE 416 U/L 40-150 (BEAKER) (test xbyb=810) BILIRUBIN TOTAL (BEAKER) 1.6 mg/dL 0.2-1.2 (test cpuj=961) SODIUM (BEAKER) (test 131 meq/L 136-145 duqs=145) POTASSIUM (BEAKER) (test 3.6 meq/L 3.5-5.1 qbfo=725) CHLORIDE (BEAKER) (test 101 meq/L 98-107 uoab=911) CO2 (BEAKER) (test 22 meq/L 22-29 xawd=671) BLOOD UREA NITROGEN 18 mg/dL 7-21 (BEAKER) (test jqhp=006) CREATININE (BEAKER) (test 0.80 mg/dL 0.57-1.25 ktun=365) GLUCOSE RANDOM (BEAKER) 220 mg/dL 70-105 (test izhj=944) CALCIUM (BEAKER) (test 9.1 mg/dL 8.4-10.2 kphh=785) AST (SGOT) (BEAKER) (test 63 U/L 5-34 iesq=325) ALT (SGPT) (BEAKER) (test 126 U/L 6-55 nkrz=723) EGFR (BEAKER) (test 97 mL/min/1.73 sq m ESTIMATED GFR IS NOT crxg=6578) ACCURATE CREATININE CLEARANCE IN PREDICTING GLOMERULAR FILTRATION RATE. ESTIMATED GFR IS NOT APPLICABLE FOR DIALYSIS PATIENTS. BILIRUBIN, [id number] 08:54:00 Test Item Value Reference Range Comments BILIRUBIN DIRECT (BEAKER) (test nqcl=847) 1.0 mg/dL 0.1-0.5 CBC W/PLT COUNT & AUTO [id number] 07:57:00 Test Item Value Reference Range Comments WHITE BLOOD CELL COUNT (BEAKER) (test svzh=466) 11.3 K/ L 3.5-10.5 RED BLOOD CELL COUNT (BEAKER) (test afaw=553) 4.21 M/ L 4.63-6.08 HEMOGLOBIN (BEAKER) (test iupl=461) 12.8 GM/DL 13.7-17.5 HEMATOCRIT (BEAKER) (test wjcv=605) 37.8 % 40.1-51.0 MEAN CORPUSCULAR VOLUME (BEAKER) (test apcm=474) 89.8 fL 79.0-92.2 MEAN CORPUSCULAR HEMOGLOBIN (BEAKER) (test 30.4 pg 25.7-32.2 izxa=226) MEAN CORPUSCULAR HEMOGLOBIN CONC (BEAKER) (test 33.9 GM/DL 32.3-36.5 nlxx=279) RED CELL DISTRIBUTION WIDTH (BEAKER) (test 15.7 % 11.6-14.4 zqgd=183) PLATELET COUNT (BEAKER) (test hzke=164) 215 K/CU MM 150-450 MEAN PLATELET VOLUME (BEAKER) (test uhyo=539) 12.4 fL 9.4-12.4 NUCLEATED RED BLOOD CELLS (BEAKER) (test 0 /100 WBC 0-0 cqqq=618) NEUTROPHILS RELATIVE PERCENT (BEAKER) (test 66 % ueah=916) LYMPHOCYTES RELATIVE PERCENT (BEAKER) (test 25 % seng=904) MONOCYTES RELATIVE PERCENT (BEAKER) (test 8 % jdjo=252) EOSINOPHILS RELATIVE PERCENT (BEAKER) (test 0 % ushx=530) BASOPHILS RELATIVE PERCENT (BEAKER) (test 0 % uhof=248) NEUTROPHILS ABSOLUTE COUNT (BEAKER) (test 7.44 K/ L 1.78-5.38 ssbn=734) LYMPHOCYTES ABSOLUTE COUNT (BEAKER) (test 2.80 K/ L 1.32-3.57 dryr=058) MONOCYTES ABSOLUTE COUNT (BEAKER) (test 0.92 K/ L 0.30-0.82 llyx=974) EOSINOPHILS ABSOLUTE COUNT (BEAKER) (test 0.03 K/ L 0.04-0.54 pjgp=506) BASOPHILS ABSOLUTE COUNT (BEAKER) (test 0.02 K/ L 0.01-0.08 kybb=149) IMMATURE GRANULOCYTES-RELATIVE PERCENT (BEAKER) 1 % 0-1 (test qdve=7759) U/S, ABDOMINAL, WITH [id number] 12:22:00FINAL REPORT Abdominal Doppler Ultrasound Clinical Diagnosis: Evaluate hepatic vessels status post liver transplant with elevated liver function tests Comparison: November 2014 Technique: Multiple transaxial and longitudinal images were obtained through the abdomen with real time ultrasonography. In addition, color Doppler and spectral waveform analysis evaluation of the abdominal vasculature was performed. Five MHz transducer was utilized. 116 images were submitted for interpretation. Report:Liver: The liver measures 13.3 cm in the right midaxillary line. There are no focal masses. The echogenicity is homogenous.Spleen: The spleen measures 9.6 cm. in the left mid axillary line. Gallbladder: Gallbladder is been surgically removedBiliary tree: There is no evidence of intra or extra hepatic biliary ductal dilatation. The common bile duct measures four mm.Portal vein:The portal vein measures 12 mm. Pancreas: The pancreatic tail is not well seen secondary to overlying bowel gas. Ascites: NegativePleural Effusion: NegativeRight kidney: The right kidney measures 8.2 cm. in length without evidence of hydronephrosis.Left kidney : The left kidney measures 11.2 cm. in length without evidence of hydronephrosis.Midline abdominal structures: Maximum transverse dimension of aorta is 2.1 cm IVC: PatentHepatic veins: Visualized with phasic venous waveformsAorta dimensions: Maximum transverse dimension proximally is 2.1 cmHepatic arteries: The proper hepatic, right hepatic and [...] confluence is visualized and demonstrates hepatopedal flow. Impression:Status post liver transplant and cholecystectomy.Interval decrease in the size of the rightkidney as compared to the prior study.Nonspecific increased resistive indices through the hepatic arterial circulation otherwise unremarkable Doppler interrogation. Signed: Herrera Alexandre Verified Date/Time: 05/08/2018 12:22:52 Reading Location: [facility] Ultrasound Reading Room TISSUE [id number] 13:45:00Surgical Pathology Report Case: [id number] Authorizing Provider: Gisel Perez MD Collected: 2017 [id number] Ordering Location: [facility] Radiology Main Received : 04/22/2018 7131 Pathologist: Roney Mcdonald MD Specimen: Biopsy, Liver, Tx Bx The addendum is being issued to report the results of immunostain for CK7 and C4d. The diagnosis is unchanged.RESULTSImmunostain for CK7 shows confirms focal absence of bile ducts. There is cholangiolar proliferationand biliary metaplasia of the hepatocytes.Immunostain for C4d is negative for significant staining. [id number], [id number] electronically signed by Roney Mcdonald MD on at 1:45 PMLIVER ALLOGRAFT, ULTRASOUND-GUIDED NEEDLE BIOPSY (S/P OLT IN 2006)- ACUTE T-CELL MEDIATED REJECTION- CHRONIC DUCTOPENIC REJECTION- PORTAL/ PERIPORTAL AND FOCAL BRIDGING FIBROSIS- SEE COMMENT Signing Pathologist Direct Phone Line: [phone] signed by Roney Mcdonald MD on at 11:44 AMPreliminary result electronically signed by Roney Mcdonald MD on 04/23/2018 at 5:58 PMImmunostainsfor C4d and CK7 are being performed and the results will be reported as an addendum.[id number], 87791 X 4S/P OLT for HCV in 2006, [...] hyaline globules are seen on PAS with diastasestain.Special stains: trichrome, reticulin, iron and PAS with diastaseThe following special studies were performed on this case and the interpretation is incorporated in the diagnostic report above:Theimmunohistochemistry test was developed and its performance characteristics determined by [facility], Pathology Laboratory. It has not been cleared [...] qualified to perform high complexity clinical laboratory testing.TACROLIMUS [id number] 11:16:00 Test Item Value Reference Range Comments TACROLIMUS BLOOD (BEAKER) (test obep=220) 7.9 ng/mL 10.0-20.0 [id number] 09:17:00 Test Item Value Reference Range Comments MAGNESIUM (BEAKER) (test dnzy=984) 2.0 mg/dL 1.6-2.6 COMPREHENSIVE METABOLIC [id number] 09:17:00 Test Item Value Reference Range Comments TOTAL PROTEIN (BEAKER) 7.3 gm/dL 6.0-8.3 (test qfuz=438) ALBUMIN (BEAKER) (test 3.7 g/dL 3.5-5.0 wins=6854) ALKALINE PHOSPHATASE 392 U/L 40-150 (BEAKER) (test zlyz=846) BILIRUBIN TOTAL (BEAKER) 1.3 mg/dL 0.2-1.2 (test wedq=579) SODIUM (BEAKER) (test 138 meq/L 136-145 ofva=068) POTASSIUM (BEAKER) (test 3.6 meq/L 3.5-5.1 falb=153) CHLORIDE (BEAKER) (test 107 meq/L 98-107 temk=128) CO2 (BEAKER) (test 21 meq/L 22-29 zfej=468) BLOOD UREA NITROGEN 18 mg/dL 7-21 (BEAKER) (test taqj=122) CREATININE (BEAKER) (test 0.82 mg/dL 0.57-1.25 fbts=220) GLUCOSE RANDOM (BEAKER) 114 mg/dL 70-105 (test yjgx=412) CALCIUM (BEAKER) (test 9.1 mg/dL 8.4-10.2 lrsx=252) AST (SGOT) (BEAKER) (test 57 U/L 5-34 pacv=054) ALT (SGPT) (BEAKER) (test 123 U/L 6-55 cnxc=531) EGFR (BEAKER) (test 94 mL/min/1.73 sq m ESTIMATED GFR IS NOT dpgu=2230) ACCURATE CREATININE CLEARANCE IN PREDICTING GLOMERULAR FILTRATION RATE. ESTIMATED GFR IS NOT APPLICABLE FOR DIALYSIS PATIENTS. BILIRUBIN, [id number] 09:17:00 Test Item Value Reference Range Comments BILIRUBIN DIRECT (BEAKER) (test amai=415) 0.9 mg/dL 0.1-0.5 CBC W/PLT COUNT & AUTO [id number] 08:29:00 Test Item Value Reference Range Comments WHITE BLOOD CELL COUNT (BEAKER) (test dbro=912) 11.1 K/ L 3.5-10.5 RED BLOOD CELL COUNT (BEAKER) (test uoej=156) 4.20 M/ L 4.63-6.08 HEMOGLOBIN (BEAKER) (test tyjr=562) 12.5 GM/DL 13.7-17.5 HEMATOCRIT (BEAKER) (test txln=665) 38.2 % 40.1-51.0 MEAN CORPUSCULAR VOLUME (BEAKER) (test epvc=351) 91.0 fL 79.0-92.2 MEAN CORPUSCULAR HEMOGLOBIN (BEAKER) (test 29.8 pg 25.7-32.2 jtkh=011) MEAN CORPUSCULAR HEMOGLOBIN CONC (BEAKER) (test 32.7 GM/DL 32.3-36.5 jwqz=912) RED CELL DISTRIBUTION WIDTH (BEAKER) (test 15.5 % 11.6-14.4 qbxr=101) PLATELET COUNT (BEAKER) (test wxgh=264) 268 K/CU MM 150-450 MEAN PLATELET VOLUME (BEAKER) (test jmeg=792) 12.1 fL 9.4-12.4 NUCLEATED RED BLOOD CELLS (BEAKER) (test 0 /100 WBC 0-0 rwia=760) NEUTROPHILS RELATIVE PERCENT (BEAKER) (test 66 % vhwu=216) LYMPHOCYTES RELATIVE PERCENT (BEAKER) (test 25 % ilin=810) MONOCYTES RELATIVE PERCENT (BEAKER) (test 9 % nasm=234) EOSINOPHILS RELATIVE PERCENT (BEAKER) (test 0 % nmnb=998) BASOPHILS RELATIVE PERCENT (BEAKER) (test 0 % ptix=199) NEUTROPHILS ABSOLUTE COUNT (BEAKER) (test 7.32 K/ L 1.78-5.38 uzla=289) LYMPHOCYTES ABSOLUTE COUNT (BEAKER) (test 2.72 K/ L 1.32-3.57 mybp=737) MONOCYTES ABSOLUTE COUNT (BEAKER) (test 0.97 K/ L 0.30-0.82 myrd=640) EOSINOPHILS ABSOLUTE COUNT (BEAKER) (test 0.00 K/ L 0.04-0.54 xmgw=026) BASOPHILS ABSOLUTE COUNT (BEAKER) (test 0.01 K/ L 0.01-0.08 kfze=363) IMMATURE GRANULOCYTES-RELATIVE PERCENT (BEAKER) 1 % 0-1 (test tlyw=5585) TACROLIMUS [id number] 12:29:00 Test Item Value Reference Range Comments TACROLIMUS BLOOD (BEAKER) (test ygsa=925) 12.9 ng/mL 10.0-20.0 [id number] 09:28:00 Test Item Value Reference Range Comments MAGNESIUM (BEAKER) (test miuj=653) 1.7 mg/dL 1.6-2.6 COMPREHENSIVE METABOLIC [id number] 09:28:00 Test Item Value Reference Range Comments TOTAL PROTEIN (BEAKER) 8.3 gm/dL 6.0-8.3 (test aueq=107) ALBUMIN (BEAKER) (test 3.9 g/dL 3.5-5.0 ayfh=3180) ALKALINE PHOSPHATASE 541 U/L 40-150 (BEAKER) (test huhl=679) BILIRUBIN TOTAL (BEAKER) 1.5 mg/dL 0.2-1.2 (test btet=143) SODIUM (BEAKER) (test 139 meq/L 136-145 pbzy=317) POTASSIUM (BEAKER) (test 3.6 meq/L 3.5-5.1 esfu=590) CHLORIDE (BEAKER) (test 106 meq/L 98-107 nhpd=372) CO2 (BEAKER) (test 23 meq/L 22-29 wylb=891) BLOOD UREA NITROGEN 14 mg/dL 7-21 (BEAKER) (test cssu=868) CREATININE (BEAKER) (test 0.83 mg/dL 0.57-1.25 lcac=711) GLUCOSE RANDOM (BEAKER) 106 mg/dL 70-105 (test ptal=096) CALCIUM (BEAKER) (test 9.6 mg/dL 8.4-10.2 esyx=207) AST (SGOT) (BEAKER) (test 90 U/L 5-34 ovff=992) ALT (SGPT) (BEAKER) (test 88 U/L 6-55 vtbx=131) EGFR (BEAKER) (test 93 mL/min/1.73 sq m ESTIMATED GFR IS NOT orcb=4459) ACCURATE CREATININE CLEARANCE IN PREDICTING GLOMERULAR FILTRATION RATE. ESTIMATED GFR IS NOT APPLICABLE FOR DIALYSIS PATIENTS. BILIRUBIN, [id number] 09:28:00 Test Item Value Reference Range Comments BILIRUBIN DIRECT (BEAKER) (test xnvx=718) 1.0 mg/dL 0.1-0.5 CBC W/PLT COUNT & AUTO [id number] 08:52:00 Test Item Value Reference Range Comments WHITE BLOOD CELL COUNT (BEAKER) (test uaey=681) 5.7 K/ L 3.5-10.5 RED BLOOD CELL COUNT (BEAKER) (test zskd=860) 4.44 M/ L 4.63-6.08 HEMOGLOBIN (BEAKER) (test ccjn=909) 13.3 GM/DL 13.7-17.5 HEMATOCRIT (BEAKER) (test xtqe=195) 41.2 % 40.1-51.0 MEAN CORPUSCULAR VOLUME (BEAKER) (test ndfl=303) 92.8 fL 79.0-92.2 MEAN CORPUSCULAR HEMOGLOBIN (BEAKER) (test 30.0 pg 25.7-32.2 sjpy=799) MEAN CORPUSCULAR HEMOGLOBIN CONC (BEAKER) (test 32.3 GM/DL 32.3-36.5 wpkp=454) RED CELL DISTRIBUTION WIDTH (BEAKER) (test 15.3 % 11.6-14.4 tkwe=268) PLATELET COUNT (BEAKER) (test vcnu=955) 249 K/CU MM 150-450 MEAN PLATELET VOLUME (BEAKER) (test pmhc=018) 12.0 fL 9.4-12.4 NUCLEATED RED BLOOD CELLS (BEAKER) (test 0 /100 WBC 0-0 zzgx=250) NEUTROPHILS RELATIVE PERCENT (BEAKER) (test 41 % ymze=484) LYMPHOCYTES RELATIVE PERCENT (BEAKER) (test 43 % tvcv=929) MONOCYTES RELATIVE PERCENT (BEAKER) (test 12 % oxhj=597) EOSINOPHILS RELATIVE PERCENT (BEAKER) (test 3 % aymk=591) BASOPHILS RELATIVE PERCENT (BEAKER) (test 2 % weqj=169) NEUTROPHILS ABSOLUTE COUNT (BEAKER) (test 2.35 K/ L 1.78-5.38 tusa=768) LYMPHOCYTES ABSOLUTE COUNT (BEAKER) (test 2.45 K/ L 1.32-3.57 mcpf=726) MONOCYTES ABSOLUTE COUNT (BEAKER) (test 0.67 K/ L 0.30-0.82 mmhy=556) EOSINOPHILS ABSOLUTE COUNT (BEAKER) (test 0.16 K/ L 0.04-0.54 yssl=226) BASOPHILS ABSOLUTE COUNT (BEAKER) (test 0.10 K/ L 0.01-0.08 hbad=977) IMMATURE GRANULOCYTES-RELATIVE PERCENT (BEAKER) 0 % 0-1 (test heyw=8307) U/S, BIOPSY, [id number] 17:39:00Reason for Exam:->liver transplant Elevated liver enzymesLocation->[facility] Biopsy: Pertinent clinical information: Ultrasound [...] ultrasound-guided random transplant liver biopsy Signed: Herrera Alexandreeport Verified Date/Time: 04/22/2018 17:39:27 Reading Location: [facility] [id number] Ultrasound Reading Room Electronically signed by: HERRERA ALEXANDRE M.D. on 06/2018 05:39 [id number] 10:56:00 Test Item Value Reference Range Comments PROTIME (BEAKER) (test clwm=974) 15.1 seconds 11.7-14.7 INR (BEAKER) (test lhpk=441) 1.2 <=5.9 PARTIAL THROMBOPLASTIN TIME (BEAKER) (test 32.0 seconds 22.5-36.0 zwao=380) RECOMMENDED COUMADIN/WARFARIN INR THERAPY RANGESSTANDARD DOSE: 2.0 - 3.0 Includes: PROPHYLAXIS forvenous thrombosis, systemic embolization; TREATMENT for venous thrombosis and/or pulmonary embolus.HIGH RISK: Target INR is 2.5-3.5 for patients with mechanical heart valves.PLATELET [id number] 10:44:00 Test Item Value Reference Range Comments PLATELET COUNT (BEAKER) (test mjsl=923) 269 K/CU MM 150-450 HEPATITIS C PCR, [id number] 19:20:00 Test Item Value Reference Range Comments HCV RESULT COMPONENT (BEAKER) HCV RNA not detected HCV RNA not detected (test zuxj=0309) This test uses a Real-Time Polymerase Chain Reaction (RT-PCR) methodology and was performed using NICOLE[employer]E Ampliprep/NICOLETTE TaqMan HCV test kit version 2.0 ( [employer]).Reportable range for this assay is 15 - 100,000, 000 IU per mL (1.18 - 8.00 Log IU/mL).TACROLIMUS [id number] 12:56:00 Test Item Value Reference Range Comments TACROLIMUS BLOOD (BEAKER) (test fipo=550) 9.4 ng/mL 10.0-20.0 [id number] 09:48:00 Test Item Value Reference Range Comments PHOSPHORUS (BEAKER) (test pnng=511) 2.1 mg/dL 2.3-4.7 [id number] 09:48:00 Test Item Value Reference Range Comments MAGNESIUM (BEAKER) (test mopg=081) 2.2 mg/dL 1.6-2.6 COMPREHENSIVE METABOLIC [id number] 09:48:00 Test Item Value Reference Range Comments TOTAL PROTEIN (BEAKER) 8.1 gm/dL 6.0-8.3 (test kwrk=357) ALBUMIN (BEAKER) (test 3.8 g/dL 3.5-5.0 iiac=1250) ALKALINE PHOSPHATASE 534 U/L 40-150 (BEAKER) (test rtig=416) BILIRUBIN TOTAL (BEAKER) 1.8 mg/dL 0.2-1.2 (test jbnu=261) SODIUM (BEAKER) (test 139 meq/L 136-145 hqzc=930) POTASSIUM (BEAKER) (test 4.4 meq/L 3.5-5.1 ufcr=176) CHLORIDE (BEAKER) (test 104 meq/L 98-107 oeds=401) CO2 (BEAKER) (test 28 meq/L 22-29 miiu=606) BLOOD UREA NITROGEN 16 mg/dL 7-21 (BEAKER) (test ozkz=979) CREATININE (BEAKER) (test 0.78 mg/dL 0.57-1.25 ibkc=179) GLUCOSE RANDOM (BEAKER) 106 mg/dL 70-105 (test mxqt=223) CALCIUM (BEAKER) (test 9.5 mg/dL 8.4-10.2 fivr=840) AST (SGOT) (BEAKER) (test 80 U/L 5-34 xtzl=870) ALT (SGPT) (BEAKER) (test 74 U/L 6-55 utsk=083) EGFR (BEAKER) (test 100 mL/min/1.73 sq ESTIMATED GFR IS NOT hzqj=0645) m ACCURATE CREATININE CLEARANCE IN PREDICTING GLOMERULAR FILTRATION RATE. ESTIMATED GFR IS NOT APPLICABLE FOR DIALYSIS PATIENTS. BILIRUBIN, [id number] 09:48:00 Test Item Value Reference Range Comments BILIRUBIN DIRECT (BEAKER) (test defd=772) 1.1 mg/dL 0.1-0.5 CBC W/PLT COUNT & AUTO [id number] 09:33:00 Test Item Value Reference Range Comments WHITE BLOOD CELL COUNT (BEAKER) (test mqji=805) 5.1 K/ L 3.5-10.5 RED BLOOD CELL COUNT (BEAKER) (test jofj=339) 4.56 M/ L 4.63-6.08 HEMOGLOBIN (BEAKER) (test cfia=866) 13.6 GM/DL 13.7-17.5 HEMATOCRIT (BEAKER) (test wlnl=275) 42.9 % 40.1-51.0 MEAN CORPUSCULAR VOLUME (BEAKER) (test nblh=696) 94.1 fL 79.0-92.2 MEAN CORPUSCULAR HEMOGLOBIN (BEAKER) (test 29.8 pg 25.7-32.2 ppoz=269) MEAN CORPUSCULAR HEMOGLOBIN CONC (BEAKER) (test 31.7 GM/DL 32.3-36.5 bjkl=550) RED CELL DISTRIBUTION WIDTH (BEAKER) (test 15.6 % 11.6-14.4 pytp=858) PLATELET COUNT (BEAKER) (test rzwp=852) 251 K/CU MM 150-450 MEAN PLATELET VOLUME (BEAKER) (test qxri=877) 12.2 fL 9.4-12.4 NUCLEATED RED BLOOD CELLS (BEAKER) (test 0 /100 WBC 0-0 ozye=073) NEUTROPHILS RELATIVE PERCENT (BEAKER) (test 42 % hpzx=137) LYMPHOCYTES RELATIVE PERCENT (BEAKER) (test 39 % izdo=666) MONOCYTES RELATIVE PERCENT (BEAKER) (test 13 % toxv=303) EOSINOPHILS RELATIVE PERCENT (BEAKER) (test 3 % spmz=981) BASOPHILS RELATIVE PERCENT (BEAKER) (test 2 % jtfm=374) NEUTROPHILS ABSOLUTE COUNT (BEAKER) (test 2.14 K/ L 1.78-5.38 hzmf=062) LYMPHOCYTES ABSOLUTE COUNT (BEAKER) (test 1.99 K/ L 1.32-3.57 cdih=754) MONOCYTES ABSOLUTE COUNT (BEAKER) (test 0.63 K/ L 0.30-0.82 horb=927) EOSINOPHILS ABSOLUTE COUNT (BEAKER) (test 0.17 K/ L 0.04-0.54 dast=541) BASOPHILS ABSOLUTE COUNT (BEAKER) (test 0.12 K/ L 0.01-0.08 jugj=304) IMMATURE GRANULOCYTES-RELATIVE PERCENT (BEAKER) 0 % 0-1 (test yghk=5332)
--- NOTE | 2018-06-03 15:24 | RAD REPORT ---
EXAM DESCRIPTION: RAD - Chest Single View - 06/03/2018 2:49 pm CLINICAL HISTORY: I D of L hand; infection Chest pain. COMPARISON: No comparisons FINDINGS: Portable technique limits examination quality. Postsurgical changes are present inferior left lobe of the lung. Lungs are grossly clear. The heart i s normal in size. No displaced fractures. IMPRESSION: No acute intrathoracic process suspected.
[2018-06-03 15:33] LABS: Absolute Monocytes 0.8 K/uL (0.1-1.3); Absolute Neutrophil 6.4 K/uL (1.8-8.0); Basophils % 0.3 % (0-1.3); Eosinophils % 0.4 % (0-4.4); Hematocrit 37.1 % (39.6-49.0); Lymphocytes % 21.4 % (15.3-44.8); MCH 31.1 pg (27.0-35.0); MCV 91.8 fL (80-100); MPV 10.7 fL (7.6-11.3); Monocytes % 8.2 % (3.3-12.3); RBC Red Blood Cell Count 4.04 M/uL (4.33-5.43)
[2018-06-03 15:34] LABS: Protime INR 0.91
[2018-06-03] MEDS ORDERED: D50W 25 GM/50 ML SYRINGE IV PRN (16:36)
[2018-06-03] MEDS ORDERED: GLUCAGON 1 MG/VIAL IM PRN (16:36)
[2018-06-03 16:50] LABS: Potassium 4.7 mmol/L (3.5-5.1)
--- NOTE | 2018-06-03 16:59 | EKG ---
Test Date: 2018-06-03 Test Time: 14:15:32 Master Data Analyst: PADMINI MEASUREMENT RESULTS: Intervals: Rate: 71 WV: 136 QRSD: 76 QT: 360 QTc: 391 [place]: P: 40 WV: 136 QRS: 45 T: 52 INTERPRETIVE STATEMENTS: Normal sinus rhythm Early repolarization Normal ECG No previous ECG available for comparison Electronically Signed On 06-03-18 16:59:00 CDT by Jerry Porras
[2018-06-03] MEDS: INSULIN -REGULAR HUMAN 50 UNIT/0.5 ML ML SQ SCH ×2 (17:10→21:00)
[2018-06-03] MEDS: NA CHLORIDE 0.9% 1,000 ML IV SCH (17:59)
[2018-06-03] MEDS: MYCOPHENOLATE MOFETIL 500 MG PO SCH (21:03)
[2018-06-03] MEDS: TACROLIMUS 1 MG PO SCH (21:05)
--- NOTE | 2018-06-04 04:08 | HP ---
Date of Admission: 06/03/2018 Chief Complaint: Infected hand. History Of Present Illness: This patient is being followed by Dr. Walters in his office and he was found to have evidence of purulent drainage from the hand. The patient is admitted for possible exp loration and surgery. The patient is recently diagnosed diabetic on insulin, however, he has not bee n adjusting his insulin dose at home. He also has not contacted me regarding his blood sugars. Past Medical History: Positive for cirrhosis and he is status post a liver transplant. 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 Family History: Noncontributory. Personal History: He has no known allergies. Home Medicines: Please refer to the chart. Review of Systems: No history of fever, chills, or rigors. Physical Examination: General: Revealed a 67-year-old male. Vital Signs: Afebrile. HEENT: Negative. Neck: Supple. JVD negative. Chest: Clear. Heart: Regular. Abdomen: Soft. Extremities: There is purulent drainage from the hand. Assessment: 1.Infected metacarpophalangeal joint. 2.Uncontrolled diabetes. 3.Status post liver transplant, on treatment for rejection with oral steroids. Plan: The patient is started on IV antibiotic by Dr. Walters. In view of longstanding steroid dos e, he is going to receive extra dose of Solu-Cortef in the morning to prevent any adrenal crisis. Th e patient meanwhile will be put on aggressive sliding scale. He also will be given extra dose of IV insulin depending on the level of blood sugar. MERIK/MODL Voice ID: [id number]
[2018-06-04] MEDS: NA CHLORIDE 0.9% 1,000 ML IV SCH ×2 (04:25→20:07)
[2018-06-04] MEDS ORDERED: HYDROCORTISONE NA SUC 200 MG in NA CHLORIDE 0.9% 100 ML IV ONE (04:39)
[2018-06-04] MEDS ORDERED: CEFAZOLIN/SWI 1gm 1 GM/10 ML SYR IVP SCH (06:30)
[2018-06-04] MEDS ORDERED: CEFAZOLIN/SWI 1gm 1 GM/10 ML SYR IV SCH (06:30)
[2018-06-04] MEDS: INSULIN -REGULAR HUMAN 50 UNIT/0.5 ML ML SQ SCH ×5 (07:30→21:05)
[2018-06-04] MEDS ORDERED: MIDAZOLAM HCL 2 MG/2 ML INJ ONE (08:22)
[2018-06-04] MEDS ORDERED: PROPOFOL 200 MG/20 ML VIAL IV ONE (08:22)
[2018-06-04] MEDS ORDERED: LIDOCAINE 1% MPF 5 ML VIAL ONE (08:23)
[2018-06-04] MEDS ORDERED: FENTANYL CITR 100 MCG/2 ML ONE (08:23)
[2018-06-04] MEDS ORDERED: CEFAZOLIN/SWI 1gm 1 GM/10 ML SYR ONE (08:30)
[2018-06-04] MEDS ORDERED: predniSONE 20 MG TAB PO SCH (09:00)
[2018-06-04] MEDS: TACROLIMUS 3 MG PO SCH ×2 (09:00→11:53)
[2018-06-04] MEDS: MYCOPHENOLATE MOFETIL 500 MG PO SCH ×3 (09:00→20:06)
[2018-06-04] MEDS ORDERED: METHYLPREDNISOLONE 125 MG INJ ONE (09:07)
[2018-06-04] MEDS ORDERED: SILVER SULFADIAZINE 1% 25 GM TOP ONE (09:32)
[2018-06-04] MEDS ORDERED: ONDANSETRON HCL 40 MG/20 ML VIAL ONE (09:35)
[2018-06-04] MEDS: MEPERIDINE HCL 50 MG/ML AMP ONE ×4 (10:00→10:35)
[2018-06-04] MEDS: SILVER SULFADIAZINE 1% 50 GM TOP SCH (20:07)
[2018-06-04] MEDS: MEPERIDINE HCL 50 MG/ML AMP IM PRN (20:07)
[2018-06-04] MEDS: TACROLIMUS 1 MG PO SCH (20:07)
--- NOTE | 2018-06-04 20:55 | OP ---
Surgeon: Norberto Walters MD Construction Equipment Operator: Royal. Preoperative Diagnosis: Infected left index finger. Postoperative Diagnosis: Infected left index finger. Procedure Performed: Excision of skin, subcutaneous tissue, incision and drainage of abscess. Anesthesia: General. Procedure In Detail: After satisfactory induction of general anesthesia, left arm was prepped with B etadine scrub, Betadine paint, and dry sterile drapes were applied in the usual manner. Arm was elev ated. Tourniquet inflated to 250 mmHg. Hand placed on the [place] table. A curvilinear incision ma de over the metacarpal heads of the left index finger dorsally. Tissue was excised approximately 1.5 x 0.5 cm approximately 7 cm dissected down. Pus was encountered. The extensor tendons were inflame d and infected with the material. This was debrided with Mckee's curette and jet lavaged was irri gated with 3 L of dilute Betadine solution. Tourniquet was released. Electrocautery was used for he mostasis. Wound packed with Nu Gauze, soaked with Silvadene cream and 2-inch Kira. Splint was reap plied. The patient tolerated the procedure well and returned to Recovery. PANCHO/RITCHIE Voice ID: [id number] Report ID: [id number]
[2018-06-04] MEDS ORDERED: INSULIN -REGULAR HUMAN 50 UNIT/0.5 ML ML IV ONE (21:08)
[2018-06-05] MEDS: INSULIN -REGULAR HUMAN 50 UNIT/0.5 ML ML SQ SCH ×4 (07:53→22:08)
[2018-06-05] MEDS: SILVER SULFADIAZINE 1% 50 GM TOP SCH ×2 (07:54→20:49)
[2018-06-05] MEDS: MYCOPHENOLATE MOFETIL 500 MG PO SCH ×2 (07:55→20:49)
[2018-06-05] MEDS: NA CHLORIDE 0.9% 1,000 ML IV SCH ×2 (07:56→20:50)
[2018-06-05] MEDS: TACROLIMUS 3 MG PO SCH (07:58)
--- NOTE | 2018-06-05 07:59 | CON ---
History Of Present Illness: A 67-year-old white male, right-hand dominant, who is status post percutaneous pinning of the fracture left index finger. Pin tract became infected. The pins were removed after several days, then felt pus drainage from this. He has history of status post liver transplant, on prednisone, and recent diagnosis of diabetes Social History: He does not smoke, does not drink. Allergies: NO ALLERGIES. Medications: See his list for medications. Physical Examination: EXTREMITIES: On examination, he has a purulent drainage from the left index finger dorsal surface of the pin tract site. Assessment: Infection of the pin tract. Plan: Debridement and irrigation . I willsee the patient in consultation. PANCHO/RITCHIE Voice ID: [id number] Report ID: [id number] MTDD
[2018-06-05] MEDS ORDERED: GLUCAGON 1 MG/VIAL IM PRN (11:22)
[2018-06-05] MEDS ORDERED: D50W 25 GM/50 ML SYRINGE IV PRN (11:22)
[2018-06-05 12:25] LABS: Potassium 4.5 mmol/L (3.5-5.1)
[2018-06-05] MEDS: MEPERIDINE HCL 50 MG/ML AMP IM PRN ×2 (14:21→20:51)
[2018-06-05] MEDS: INSULIN GLARGINE 100 UNITS/ML SQ SCH (17:00)
[2018-06-05] MEDS: TACROLIMUS 1 MG PO SCH (20:50)
[2018-06-06 06:31] LABS: Urine Appearance CLEAR; Urine Bilirubin NEGATIVE (NEG); Urine Blood NEGATIVE (NEG); Urine Color YELLOW; Urine Glucose TRACE (NEG); Urine Protein NEGATIVE (NEG); Urine Specific Gravity 1.015 (1.005-1.030); Urine Urobilinogen 0.2 mg/dL (0.2-1.0); Urine pH 6.5 (5.0-7.0)
[2018-06-06 06:32] LABS: Urine Microscopic Reflex NO UMIC
[2018-06-06] MEDS: INSULIN -REGULAR HUMAN 50 UNIT/0.5 ML ML SQ SCH ×2 (07:30→11:30)
[2018-06-06] MEDS ORDERED: NA CHLORIDE 0.9% 1,000 ML ONE (08:36)
[2018-06-06] MEDS ORDERED: LIDOCAINE 1% MPF 5 ML VIAL ONE (08:42)
[2018-06-06] MEDS ORDERED: FENTANYL CITR 100 MCG/2 ML ONE (08:42)
[2018-06-06] MEDS ORDERED: PROPOFOL 200 MG/20 ML VIAL IV ONE (08:42)
[2018-06-06] MEDS ORDERED: MIDAZOLAM HCL 2 MG/2 ML INJ ONE (08:42)
[2018-06-06] MEDS ORDERED: ONDANSETRON HCL 40 MG/20 ML VIAL ONE (08:47)
--- NOTE | 2018-06-06 08:55 | DS ---
The patient's hand is improving, plan surgery tomorrow. He is n.p.o. at midnight. We will debride a nd probably he can be home the same day possibly. PANCHO/RITCHIE Voice ID: [id number] Report ID: [id number]
[2018-06-06] MEDS: SILVER SULFADIAZINE 1% 50 GM TOP SCH (09:00)
[2018-06-06] MEDS ORDERED: CEFAZOLIN/SWI 1gm 1 GM/10 ML SYR ONE (09:06)
[2018-06-06] MEDS ORDERED: METHYLPREDNISOLONE 125 MG INJ ONE (09:07)
[2018-06-06] MEDS: MEPERIDINE HCL 50 MG/ML AMP ONE ×4 (09:57→10:12)
[2018-06-06] MEDS: INSULIN GLARGINE 100 UNITS/ML SQ SCH (12:36)
[2018-06-06] MEDS: MYCOPHENOLATE MOFETIL 500 MG PO SCH (12:37)
[2018-06-06] MEDS: TACROLIMUS 3 MG PO SCH (12:37)
[2018-06-06] MEDS: NA CHLORIDE 0.9% 1,000 ML IV SCH (12:40)
--- NOTE | 2018-06-06 15:28 | PN ---
Date of Progress Note: 06/05/2018 The patient was seen on 06/05/2018. He was afebrile with decreased pain in the hand. HEENT otherwis e negative. Chest clear. Heart regular. Abdomen soft. The patient was advised to ambulate in the hallways to prevent DVT. The patient denied any other new symptoms. ANTHONY/RITCHIE Voice ID: [id number] Report ID: [id number]
--- NOTE | 2018-06-06 15:40 | PN ---
The patient's wound cultures show staph aureus coagulase positive, sensitive to ciprofloxacin, Augmen tin, levofloxacin. The patient is back in surgery today. The patient will be started on antibiotics based on the culture and sensitivity report. ANTHONY/RITCHIE Voice ID: [id number] Report ID: [id number]
[2018-06-06] MEDS ORDERED: AMOX/K CLAV 500 MG TAB PO SCH (21:00)
--- NOTE | 2018-06-07 09:47 | OP ---
Surgeon: Norberto Walters MD Retail Loan Officer: Royal. Preoperative Diagnosis: Open wound of the left index finger. Postoperative Diagnosis: Open wound of the left index finger. Procedure Performed: Debridement of skin and subcutaneous tissue, flap closure. Anesthesia: General. Procedure In Detail: After satisfactory induction of general anesthesia, the left hand was prepped, Betadine scrub, Betadine paint, dry sterile drapes applied in usual manner. The arm was elevated and exsanguinated with an Esmarch. Tourniquet was inflated to 250 mmHg. The hand was placed on [place] table. Tenotomy scissors, forceps and curette were used to debride the skin and subcutaneous tissue as needed. The wound was jet lavaged, irrigated with 3 L of dilute Betadine solution. Tourniquet r eleased. Electrocautery was used for hemostasis. Flaps were undermined, advanced and closed with 3- 0 nylon vertical mattress. Dressing consisted of Xeroform, 2-inch Kira, and Kerlix. The patient to lerated the procedure well and returned to Recovery. PANCHO/RITCHIE Voice ID: [id number] Report ID: [id number]
== END 2018-06-06 15:20 | disposition home or self-care (01) | DRG 464 ==
LOC: 2ND 13:18
PROVIDERS: ADMIT Internal Medicine; ATTEND Internal Medicine
PROC: 0H9GXZX Drainage of Left Hand Skin, External Approach, Diagnostic (ICD-10-PCS; 2018-06-04)
PROC: 0JBK0ZZ Excision of Left Hand Subcutaneous Tissue and Fascia, Open Approach (ICD-10-PCS; principal; 2018-06-04 09:00)
PROC: 0HXGXZZ Transfer Left Hand Skin, External Approach (ICD-10-PCS; 2018-06-06)
PROC: 0JBK0ZZ Excision of Left Hand Subcutaneous Tissue and Fascia, Open Approach (ICD-10-PCS; 2018-06-06)
DX: T84.69XA Infection and inflammatory reaction due to internal fixation device of other site, initial encounter (principal); Z94.4 Liver transplant status; T86.41 Liver transplant rejection; Y83.8 Other surgical procedures as the cause of abnormal reaction of the patient, or of later complication, without mention of misadventure at the time of the procedure; Y92.89 Other specified places as the place of occurrence of the external cause; E11.65 Type 2 diabetes mellitus with hyperglycemia; L08.9 Local infection of the skin and subcutaneous tissue, unspecified; B95.61 Methicillin susceptible Staphylococcus aureus infection as the cause of diseases classified elsewhere
CPT/HCPCS: 36415; 71045; 80048; 81003; 82962; 85025; 85610; 85730; 87070; 87075; 87077; 87186; 87205; 88304; 93005; J0690; J1720; J2175; J2250; J2405; J2930; J3010; J7030

== ENCOUNTER 2018-11-26 17:23 | Observation (INO) | payer OTHER ==
--- OUTSIDE RECORDS SUMMARY | 2018-11-26 17:50 | XMS REPORT | Clinical Summary ---
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 Last Filed Vital Signs Not on file Plan of Treatment Health Maintenance Due Date Last Done Comments COLON CANCER SCREENING 2002 SHINGLES VACCINES (1 of 2) 2002 PNEUMOCOCCAL POLYSACCHARIDE VACCINE AGE 65 AND OVER 2017 PNEUMOCOCCAL-13 2017 INFLUENZA VACCINE 05/15/2018 Results Not on fileafter 11/25/2017 Insurance Payer Benefit Plan / Group Subscriber ID Type Phone Address [facility] xxxxxxxxxx Commercial INSURANCE INSURANCE MEDICARE MEDICARE PART A AND B xxxxxxxxxx Medicare [place], [place] Advance Directives Patient has advance care planning documents on file. For more information, please contact:[address] [address]
--- OUTSIDE RECORDS SUMMARY | 2018-11-26 17:54 | XMS REPORT ---
:1950 [facility] [address] [place] [address] [address] [place] [address] Care Team Providers Name Role Phone DULCE BERKOWITZ Unavailable Unavailable SILVIA ZENDEJAS Unavailable Unavailable ANGI CEVALLOS Unavailable Unavailable GISEL VILLEGAS Unavailable Unavailable Problems This patient has no known problems. Allergies, Adverse Reactions, Alerts This patient has no known allergies or adverse reactions. Medications This patient has no known medications. Results Test Description Test Time Test Comments Text Results Atomic Results Result Comments AFB SMEAR 2018-11-25 12:49:00 Test Item Value Reference Range Comments AFB SMEAR (BEAKER) (test zayz=568) No acid fast bacilli seen OVA AND PARASITE [id number] 08:45:00 Test Item Value Reference Range Comments DIRECT SMEAR - O\\T\\P No ova or parasites seen No ova or parasites seen (BEAKER) (test chih=428) CONCENTRATE SMEAR - O\\T\\P No ova or parasites seen No ova or parasites seen (BEAKER) (test qpvf=465) TRICHROME SMEAR - O\\T\\P No ova or parasites seen No ova or parasites seen (BEAKER) (test lgpn=665) BLOOD [id number] 01:01:00 Test Item Value Reference Range Comments CULTURE (BEAKER) (test pwgt=2143) No growth in 5 days BLOOD [id number] 01:01:00 Test Item Value Reference Range Comments CULTURE (BEAKER) (test djff=9876) No growth in 5 days TISSUE [id number] 15:48:00Surgical Pathology Report Case: [id number] Authorizing Provider: Ismael Gonzáles MD Collected: 11/15/2018 1115 Ordering Location: [address] Received: 11/15/2018 1549 Pathologist: Ronnie Beaver MD Specimens: A) - Biopsy, Jejunum, random bx, Immunosurpressed Evaluate for organism &GVHD B) - Duodenum, random bx, Immunosurpressed Evaluate for organism &GVHD C) - Stomach, random bx, Immunosurpressed Evaluate for organism &GVHD The addendum is to report results of the GMS stain and CMV immunohistochemical stains on block A-C.GMS- negative for fungal organisms.CMV- negativeControls are adequate.The above special studies were performed on block A-C in this case and the interpretation is incorporated in the diagnostic report above:The immunohistochemistry test was developed and its performance characteristics determined by [facility], Pathology Laboratory. It has not been cleared or approved by the U.S. Food and DrugAdministration. The FDA has determined that such clearance or approval is not necessary. The test isused for clinical purposes. It should not be regarded as investigational or for research. This laboratory is certified under the Clinical Laboratory Improvement Amendments of 1988 (CLIA-88) as qualified to perform high complexity clinical laboratory testing. CPT codes: 36294 x 3, 02686 x 3Addendum electronically signed by Ronnie Beaver MD on 11/18/2018 at 3:48 PMA. JEJUNUM, RANDOM BIOPSY: - NO DIAGNOSTIC ALTERATION B. DUODENUM, RANDOM BIOPSY: - NO DIAGNOSTIC ALTERATIONC. STOMACH, RANDOM BIOPSY: - CHRONIC INACTIVE GASTRITIS, MILD - INTESTINAL METAPLASIA PRESENT - NO HELICOBACTER PYLORI LIKE ORGANISM IDENTIFIED IN WARTHIN STARRY STAIN - SEE COMMENT Signing Pathologist Direct Phone Line: [phone] signed by Ronnie Beaver MD on 11/16/2018 at 1:08 PMNo acute inflammation, ulceration, apoptosis, necrosis or viral cytopathic changes are seen on routine stain. GMS stain for fungus and cytomegalovirus immunohistochemical stain results will follow in an addendum.A-C:63597 x3, 73044Jcfpelpka, evaluate for organism and GVHGA. Random jejunum biopsy. B. Random duodenumbiopsy. C. Random stomach biopsy Specimen is received in three containers of formalin all labeled with the patient's information. Specimen A: Labeled "random jejunum biopsy" consists of multiple fragments of ritchie tissue ranging from 0.1 to 0.3 cm, submitted in A1. Specimen B: Labeled "random duodenum biopsy" consists of multiple fragments of ritchie tissue ranging from 0.1 to 0.3 cm, submitted entirely inB1. Specimen C: Labeled "random stomach biopsy" consists of multiple fragments of ritchie tissue rangingfrom 0.1 and 0.5 cm, submitted entirely in C1. CG/ew A-C: PerformedThe interpretation of this case included the use of immunohistochemistry or special stains. Immunohistochemistry technical testing wasperformed [facility] where it was developed and its performance characteristics were determined. It has not been cleared or approved [...] qualified to perform high complexity clinical laboratory testing.HERPES VIRUS ANTIBODY, [id number] 11:35:00 Test Item Value Reference Range Comments HERPES VIRUS IGM (BEAKER) (test mrsk=7481) Negative TEST PERFORMED BY [facility] GenomicsANTI-NUCLEAR ANTIBODY (PILAR)2018-11-18 10:15: 00 Test Item Value Reference Range Comments ANTI-NUCLEAR ANTIBODY (PILAR) (BEAKER) (test Positive Negative gejr=990) Test performed by IFA method.PILAR TITER AND [id number] 10:15:00 Test Item Value Reference Range Comments PILAR TITER (BEAKER) (test ffkz=5360) :640 PILAR PATTERN (BEAKER) (test qhij=7478) [employer] TACROLIMUS [id number] 11:07:00 Test Item Value Reference Range Comments TACROLIMUS BLOOD (BEAKER) (test osyl=852) 11.1 ng/mL 10.0-20.0 STOOL CULTURE + SHIGA [id number] 10:15:00 Test Item Value Reference Range Comments CULTURE (BEAKER) (test No Salmonella, Shigella or tqoo=0937) Campylobacter isolated BASIC METABOLIC [id number] 07:26:00 Test Item Value Reference Range Comments SODIUM (BEAKER) (test 137 meq/L 136-145 pwcr=963) POTASSIUM (BEAKER) (test 3.9 meq/L 3.5-5.1 dvaf=881) CHLORIDE (BEAKER) (test 111 meq/L 98-107 ekwu=721) CO2 (BEAKER) (test 22 meq/L 22-29 vimi=554) BLOOD UREA NITROGEN 17 mg/dL 7-21 (BEAKER) (test tisd=627) CREATININE (BEAKER) (test 0.68 mg/dL 0.57-1.25 mpet=538) GLUCOSE RANDOM (BEAKER) 291 mg/dL 70-105 (test fpzh=952) CALCIUM (BEAKER) (test 7.9 mg/dL 8.4-10.2 taog=489) EGFR (BEAKER) (test 117 mL/min/1.73 sq m ESTIMATED GFR IS NOT ulak=1903) ACCURATE CREATININE CLEARANCE IN PREDICTING GLOMERULAR FILTRATION RATE. ESTIMATED GFR IS NOT APPLICABLE FOR DIALYSIS PATIENTS. [id number] 07:22:00 Test Item Value Reference Range Comments MAGNESIUM (BEAKER) (test onzx=872) 1.9 mg/dL 1.6-2.6 HEPATIC FUNCTION [id number] 07:22:00 Test Item Value Reference Range Comments TOTAL PROTEIN (BEAKER) (test bhlo=404) 4.4 gm/dL 6.0-8.3 ALBUMIN (BEAKER) (test wjfw=7350) 2.2 g/dL 3.5-5.0 BILIRUBIN TOTAL (BEAKER) (test raio=418) 2.0 mg/dL 0.2-1.2 BILIRUBIN DIRECT (BEAKER) (test czux=229) 1.5 mg/dL 0.1-0.5 ALKALINE PHOSPHATASE (BEAKER) (test zybw=123) 218 U/L 40-150 AST (SGOT) (BEAKER) (test ztql=096) 23 U/L 5-34 ALT (SGPT) (BEAKER) (test iuzf=117) 40 U/L 6-55 POCT-GLUCOSE [id number] 07:20:00 Test Item Value Reference Range Comments POC-GLUCOSE METER (BEAKER) 287 mg/dL 70-110 TESTED AT [facility] [address] (test vfqe=5252) [facility] [address] CBC W/PLT COUNT & AUTO [id number] 07:10:00 Test Item Value Reference Range Comments WHITE BLOOD CELL COUNT (BEAKER) (test gied=838) 12.5 K/ L 3.5-10.5 RED BLOOD CELL COUNT (BEAKER) (test nfyn=025) 3.37 M/ L 4.63-6.08 HEMOGLOBIN (BEAKER) (test kyxp=054) 10.5 GM/DL 13.7-17.5 HEMATOCRIT (BEAKER) (test lvuj=357) 33.0 % 40.1-51.0 MEAN CORPUSCULAR VOLUME (BEAKER) (test rlwq=261) 97.9 fL 79.0-92.2 MEAN CORPUSCULAR HEMOGLOBIN (BEAKER) (test 31.2 pg 25.7-32.2 qhcm=415) MEAN CORPUSCULAR HEMOGLOBIN CONC (BEAKER) (test 31.8 GM/DL 32.3-36.5 ibsu=168) RED CELL DISTRIBUTION WIDTH (BEAKER) (test 15.0 % 11.6-14.4 nold=423) PLATELET COUNT (BEAKER) (test nvio=287) 199 K/CU MM 150-450 MEAN PLATELET VOLUME (BEAKER) (test txee=734) 12.4 fL 9.4-12.4 NUCLEATED RED BLOOD CELLS (BEAKER) (test 0 /100 WBC 0-0 xnnd=015) NEUTROPHILS RELATIVE PERCENT (BEAKER) (test 90 % zbug=192) LYMPHOCYTES RELATIVE PERCENT (BEAKER) (test 3 % ucwk=998) MONOCYTES RELATIVE PERCENT (BEAKER) (test 6 % vwgm=869) EOSINOPHILS RELATIVE PERCENT (BEAKER) (test 0 % wuep=647) BASOPHILS RELATIVE PERCENT (BEAKER) (test 0 % hfam=440) NEUTROPHILS ABSOLUTE COUNT (BEAKER) (test 11.30 K/ L 1.78-5.38 cyum=420) LYMPHOCYTES ABSOLUTE COUNT (BEAKER) (test 0.43 K/ L 1.32-3.57 jkzh=446) MONOCYTES ABSOLUTE COUNT (BEAKER) (test 0.69 K/ L 0.30-0.82 gbzs=709) EOSINOPHILS ABSOLUTE COUNT (BEAKER) (test 0.01 K/ L 0.04-0.54 nckv=363) BASOPHILS ABSOLUTE COUNT (BEAKER) (test 0.02 K/ L 0.01-0.08 sfyn=670) IMMATURE GRANULOCYTES-RELATIVE PERCENT (BEAKER) 1 % 0-1 (test ktrp=3776) POCT-GLUCOSE [id number] 21:26:00 Test Item Value Reference Range Comments POC-GLUCOSE METER (BEAKER) 452 mg/dL 70-110 Baby tested Mother ID (test vldi=1546) used/TESTED AT [place] [address] EBV VIRAL [id number] 19:15:00 Test Item Value Reference Range Comments EBV VIRAL LOAD - NEGATIVE Negative or below the linear (BEAKER) (test axze=7416) range of the assay (<500 copies/mL) This assay was performed by real-time PCR for the detection of the Devora-Marcelino virus (EBV) gene EBNA-1. The test is composed of (1) DNA extraction from patient specimen, and (2) real-time PCR amplification and detection with EBNA-1- specific primers and probes. A well-conserved region of the EBNA-1 gene is targeted, along with an internal control sequence used to confirm PCR amplification. Asymptomatic carriers and viral genetic variation, among other factors, can affect the accuracy of nucleic acid testing; therefore, results should be interpreted in light of clinical data.This test was developedand its performance characteristics determined by the [facility] Pathology Department, Section of Molecular Pathology. It has not been cleared or approved by the U.S. Food and Drug Administration (FDA), since FDA approval is not required for clinical use of the test. Validation was doneas required by The Clinical Laboratory Improvement Amendments of 1988.POCT-GLUCOSE [id number] 17:34:00 Test Item Value Reference Range Comments POC-GLUCOSE METER (BEAKER) > mg/dL 70-110 OUTSIDE MEASURING RANGENotified RN (test ipjd=9581) MD/TESTED AT [place] [address] SHIGA TOXIN [id number] 14:21:00 Test Item Value Reference Range Comments SHIGA TOXIN 1 (BEAKER) (test gflv=2177) Not detected Not detected SHIGA TOXIN 2 (BEAKER) (test vkcn=0118) Not detected Not detected POCT-GLUCOSE [id number] 13:07:00 Test Item Value Reference Range Comments POC-GLUCOSE METER (BEAKER) 255 mg/dL 70-110 TESTED AT [address] (test badi=2895) [place] [address] POCT-GLUCOSE [id number] 11:56:00 Test Item Value Reference Range Comments POC-GLUCOSE METER (BEAKER) 217 mg/dL 70-110 TESTED AT [facility] [address] (test yasz=5619) [place] [address] TACROLIMUS [id number] 11:01:00 Test Item Value Reference Range Comments TACROLIMUS BLOOD (TARIK) (test ekim=827) 14.9 ng/mL 10.0-20.0 STOOL PATH [id number] 10:26:00 Test Item Value Reference Range Comments PATHOGEN EXAM CHARGED (TARIK) (test xamo=8263) Done GI PATHOGEN PROFILE BY [id number] 10:14:00 Test Item Value Reference Range Comments CAMPYLOBACTER (PCR) (test Not detected Not detected uwpc=4609642) PLESIOMONAS SHIGELLOIDES (PCR) Not detected Not detected (test xdib=5836839) SALMONELLA (PCR) (test Not detected Not detected yaao=7339251) YERSINIA ENTEROCOLITICA (PCR) Not detected Not detected (test mbpt=5831854) VIBRIO CHOLERAE (PCR) (test Not detected Not detected lzol=5320602) ENTEROAGGREGATIVE E. COLI Detected Not detected A treatment course of 1-3 (EAEC) BY PCR (test days (azithromycin or nvtg=7475229) ciprofloxacin) is recommended ONLY in cases of traveler diarrhea, HIV or persistent diarrhea ENTEROPATHOGENIC E. COLI (EPEC) Not detected Not detected BY PCR (test ppbs=5658539) ENTEROTOXIGENIC E. COLI (ETEC) Not detected Not detected LT/ST BY PCR (test ziep=7442003) SHIGA-LIKE TOXIN-PRODUCING E. Not detected Not detected COLI (STEC) STX1/STX2 (test rckt=5582220) E. COLI O157 (PCR) (test Not detected nwqp=7461229) SHIGELLA/ENTEROINVASIVE E. COLI Not detected Not detected (EIEC) BY PCR (test uocj=3691524) CRYPTOSPORIDIUM (PCR) (test Not detected Not detected myfx=7330231) CYCLOSPORA CAYETANENSIS (PCR) Not detected Not detected (test jroo=6631416) ENTAMOEBA HISTOLYTICA (PCR) Not detected Not detected (test snlu=1780517) GIARDIA LAMBLIA (PCR) (test Not detected Not detected lczh=1311418) ADENOVIRUS F 40/41 (PCR) (test Not detected Not detected vhta=1303229) ASTROVIRUS (PCR) (test Not detected Not detected sdne=5738809) NOROVIRUS GI/GII (PCR) (test Not detected Not detected ctns=9638892) ROTAVIRUS A (PCR) (test Not detected Not detected ixxe=5479871) SAPOVIRUS (I, II, IV, V) BY PCR Not detected Not detected (test kvsb=7089292) VIBRIO (PARAHAEMOLYTICUS, Not detected Not detected VULNIFICUS) (test jjor=8344692) Other viruses, parasites and bacteria not targeted by this PCR panel cannot be excluded; therefore clinical correlation and follow up of serology, culture results, and other molecular studies is required. The results are not intended to be used as the sole means for clinical diagnosis or patient management decisions. This sample was tested at the [facility] Molecular Diagnostics Laboratory using the [employer] Gastrointestinal Panel. It is FDA cleared and has been verified and approved by the [facility] Molecular Diagnostics Laboratory for clinical use. This laboratory is CLIA-certified and College ofAmerican Pathologists (CAP)-accredited to perform high complexity testing.HSV 1 AND 2 [id number] 07:11:00 Test Item Value Reference Range Comments HERPES SIMPLEX VIRUS-1 IGG (BEAKER) (test nhsv=4719) > Al <0.9 HERPES SIMPLES VIRUS-2 IGG (BEAKER) (test bixg=9429) < Al <0.9 Herpes Simplex Virus 1 IgG Result Interpretation: <0.9 Al Normal 0.9- 1.0 Al Equivocal >/=1.1 Al PositiveHerpes Simplex Virus 2 IgG Result Interpretation <0.9 Al Normal 0.9-1.0 Al Equivocal >/=1.1 Al [id number] 06:49:00 Test Item Value Reference Range Comments MAGNESIUM (BEAKER) (test uksr=719) 1.6 mg/dL 1.6-2.6 BASIC METABOLIC [id number] 06:49:00 Test Item Value Reference Range Comments SODIUM (BEAKER) (test 136 meq/L 136-145 yhgu=065) POTASSIUM (BEAKER) (test 4.0 meq/L 3.5-5.1 pqiz=573) CHLORIDE (BEAKER) (test 110 meq/L 98-107 tina=650) CO2 (BEAKER) (test 21 meq/L 22-29 ktuj=986) BLOOD UREA NITROGEN 16 mg/dL 7-21 (BEAKER) (test gnas=449) CREATININE (BEAKER) (test 0.64 mg/dL 0.57-1.25 ysji=888) GLUCOSE RANDOM (BEAKER) 274 mg/dL 70-105 (test zjdi=572) CALCIUM (BEAKER) (test 8.1 mg/dL 8.4-10.2 nrcx=289) EGFR (BEAKER) (test 125 mL/min/1.73 sq m ESTIMATED GFR IS NOT yguf=7836) ACCURATE CREATININE CLEARANCE IN PREDICTING GLOMERULAR FILTRATION RATE. ESTIMATED GFR IS NOT APPLICABLE FOR DIALYSIS PATIENTS. Specimen slightly ictericHEPATIC FUNCTION [id number] 06:49:00 Test Item Value Reference Range Comments TOTAL PROTEIN (BEAKER) (test ftmh=896) 4.4 gm/dL 6.0-8.3 ALBUMIN (BEAKER) (test qixt=1860) 2.2 g/dL 3.5-5.0 BILIRUBIN TOTAL (BEAKER) (test olcz=835) 3.4 mg/dL 0.2-1.2 BILIRUBIN DIRECT (BEAKER) (test cnzn=690) 2.5 mg/dL 0.1-0.5 ALKALINE PHOSPHATASE (BEAKER) (test zzzk=839) 178 U/L 40-150 AST (SGOT) (BEAKER) (test kkto=794) 24 U/L 5-34 ALT (SGPT) (BEAKER) (test fgqu=886) 43 U/L 6-55 Specimen slightly ictericCOMPLEMENT COMPONENT [id number] 06:27:00 Test Item Value Reference Range Comments C4 COMPLEMENT (BEAKER) (test kwxk=011) 21 mg/dL 15-57 COMPLEMENT COMPONENT [id number] 06:27:00 Test Item Value Reference Range Comments C3 COMPLEMENT (BEAKER) (test cdpn=938) 78 mg/dL 82-193 POCT-GLUCOSE [id number] 03:44:00 Test Item Value Reference Range Comments POC-GLUCOSE METER (BEAKER) 311 mg/dL 70-110 TESTED AT [address] (test mobc=9088) [facility] [address] POCT-GLUCOSE [id number] 22:52:00 Test Item Value Reference Range Comments POC-GLUCOSE METER (BEAKER) 470 mg/dL 70-110 TESTED AT [address] (test adwi=1747) [facility] [address] C. DIFFICILE GDH [id number] 19:18:00 Test Item Value Reference Range Comments CDT TOXIN (test Negative Negative rdmv=[id number]) CDT GDH ANTIGEN (test Negative Negative No indication of Clostridium rtkp=5790075459) difficile infection and no colonization. Discontinue enteric isolation and therapy. Testing performed by [employer] Rapid Cassette Assay. For GDH, published sensitivity of the assay is 98.7% compared to cytotoxicity testing. For Toxin AB, published sensitivity is 87.8% and specificity 99.4% compared to cytotoxicity testing.Verification of kit performance was done by the [facility] Microbiology Lab prior to clinical use.POCT-GLUCOSE [id number] 18:24:00 Test Item Value Reference Range Comments POC-GLUCOSE METER (BEAKER) 310 mg/dL 70-110 Notified MERY PINO/TESTED AT [facility] (test igtv=6606) [facility] [facility] [address] U/S, ABDOMINAL, WITH [id number] 17:29:00Reason for exam:->r/o perihepatic thrombosis and eval for biliary obstructionFINAL REPORT INDICATION:Evaluate for portal vein thrombosis. TECHNIQUE: Ultrasound of the Abdomen and Doppler evaluation. Sonographic evaluation of the abdomen was performed, including color flow and spectral Doppler analysis of the abdominal vasculature. COMPARISON:Abdomen pelvis CT exam November 13, 2018 FINDINGS:Hepatic Vasculature:Main portal vein measures 1.1 cm in diameter.Main portal vein demonstrates hepatopedal flow with a velocity of 20 cm/ s.Hepatopedal flow also demonstrated in the right and left portal veins.Proper hepatic artery has a resistive index of 0.5.Right hepatic artery has a resistive index of 0.5.Left hepatic artery has a resistive index of 0.6.The right, middle, and left hepatic veins are patent.Hepatic venous confluence and IVC are patent.Splenic veinis patent. Other:Liver transplant is unremarkable.Gallbladder is absent.Common bile duct is normal in diameter measuring 0.5 cm.Spleen measures 8 x 3 cm.Right kidney measures 10.1 x 5.2 x 5.0 cm.Left kidney measures 11.8 x 6.1 x 5.4 cm.No hydronephrosis or renal mass is demonstrated.Pancreas not well visualized because of bowel gas.There is trace abdominal ascites.No pleural effusion is demonstrated.Proximal, mid, distal abdominal aorta are normal in caliber.In the right lower quadrant there is marked edema of the mesenteric fat, better demonstrated on CT exam yesterday. IMPRESSION:No portal vein thrombosis of the liver transplant (or other vascular complication of liver transplant). Signed: Guido Lodr MDReport Verified Date/Time: 11/14/2018 17:29:57 Reading Location: [address] Ultrasound Reading Room CMV PCR, [id number] 17:02:00 Test Item Value Reference Range Comments CMV VIRAL LOAD - NEGATIVE Negative or below the linear (BEAKER) (test jyfc=2320) range of the assay (<375 copies/mL) Cytomegalovirus (CMV) infection can cause significant disease in immunosuppressed patients. However,it is common for CMV to manifest as a limited infection which is of no clinical significance in immunosuppressed patients or in healthy individuals.Viral load measurements are helpful to identify clinical CMV infection and to guide the pre-emptive management of antiviral therapy. For treatment of CMVinfection due to reactivation in transplant recipients, a threshold between 4,000 and 5,000 copies/mL is suggested. For treatment of primary CMV infection, a lower threshold can be used.CMV infection may also be monitored using weekly serial measurements. Serial measurements of CMV DNA viral load canbe evaluated by identifying a 10- fold change, as well as assessing the CMV DNA viral load and the clinical context for each patient.The plasma CMV DNA viral load was detected using quantitative polymerase chain reaction and fluorescent monitoring of a specific hybridized probe. Genetic variation and other factors can affect the accuracy of nucleic acid testing. Therefore, the results should be interpreted in light of clinical data. A negative result may not exclude the presence of CMV disease.This test was developed and its performance characteristics determined by the [facility] Pathology Department, Section of Molecular Pathology. It has not been cleared or approved by the U.S. Food and Drug Administration (FDA), since FDA approval is not required for clinical use of the test. Validation was done as required by The Clinical Laboratory Improvement Amendments of 1988.HEPATITIS PANEL, [id number] 13:30:00 Test Item Value Reference Range Comments HEPATITIS A IGM ANTIBODY (BEAKER) (test Nonreactive Nonreactive ayll=817) HEPATITIS B CORE IGM ANTIBODY (BEAKER) (test Nonreactive Nonreactive vvzz=288) HEPATITIS C ANTIBODY (BEAKER) (test fgjj=824) Reactive Nonreactive HEPATITIS B SURFACE ANTIGEN (2) (BEAKER) (test Nonreactive Nonreactive vtsx=6616) POCT-GLUCOSE [id number] 12:16:00 Test Item Value Reference Range Comments POC-GLUCOSE METER (BEAKER) 73 mg/dL 70-110 TESTED AT [address] (test ayrw=2800) [facility] [address] [id number] 11:42:00 Test Item Value Reference Range Comments LIPASE (BEAKER) (test tztw=997) < U/L 8-78 Specimen moderately ictericTACROLIMUS [id number] 09:45:00 Test Item Value Reference Range Comments TACROLIMUS BLOOD (BEAKER) (test skdd=125) 4.1 ng/mL 10.0-20.0 HEPATIC FUNCTION [id number] 09:07:00 Test Item Value Reference Range Comments TOTAL PROTEIN (BEAKER) (test ofop=101) 4.7 gm/dL 6.0-8.3 ALBUMIN (BEAKER) (test tdft=8417) 2.4 g/dL 3.5-5.0 BILIRUBIN TOTAL (BEAKER) (test exqd=212) 7.0 mg/dL 0.2-1.2 BILIRUBIN DIRECT (BEAKER) (test taew=916) 5.2 mg/dL 0.1-0.5 ALKALINE PHOSPHATASE (BEAKER) (test jngi=119) 209 U/L 40-150 AST (SGOT) (BEAKER) (test yqyo=559) 33 U/L 5-34 ALT (SGPT) (BEAKER) (test ityp=079) 52 U/L 6-55 Specimen moderately ictericHEMOGLOBIN [id number] 08:31:00 Test Item Value Reference Range Comments HEMOGLOBIN A1C (BEAKER) (test sfum=065) 10.8 % 4.3-6.1 POCT-GLUCOSE [id number] 07:52:00 Test Item Value Reference Range Comments POC-GLUCOSE METER (BEAKER) 79 mg/dL 70-110 TESTED AT [address] (test pyag=9426) [facility] [address] [id number] 06:15:00 Test Item Value Reference Range Comments MAGNESIUM (BEAKER) (test 2.6 mg/dL 1.6-2.6 Specimen slightly hemolyzed tami=849) BASIC METABOLIC [id number] 06:15:00 Test Item Value Reference Range Comments SODIUM (BEAKER) (test 136 meq/L 136-145 tmwn=663) POTASSIUM (BEAKER) (test 3.6 meq/L 3.5-5.1 Specimen slightly xcrh=420) hemolyzed CHLORIDE (BEAKER) (test 106 meq/L 98-107 dmlx=749) CO2 (BEAKER) (test 23 meq/L 22-29 xyyi=842) BLOOD UREA NITROGEN 20 mg/dL 7-21 (BEAKER) (test trxn=088) CREATININE (BEAKER) (test 0.62 mg/dL 0.57-1.25 Specimen slightly syle=121) hemolyzed GLUCOSE RANDOM (BEAKER) 75 mg/dL 70-105 (test dcpa=543) CALCIUM (BEAKER) (test 8.1 mg/dL 8.4-10.2 qqus=600) EGFR (BEAKER) (test 130 mL/min/1.73 sq m ESTIMATED GFR IS NOT snoj=8683) ACCURATE CREATININE CLEARANCE IN PREDICTING GLOMERULAR FILTRATION RATE. ESTIMATED GFR IS NOT APPLICABLE FOR DIALYSIS PATIENTS. Specimen moderately ictericC-REACTIVE [id number] 06:15:00 Test Item Value Reference Range Comments C-REACTIVE PROTEIN (BEAKER) (test mpix=713) 19.24 mg/dL 0.00-0.50 CBC W/PLT COUNT & AUTO [id number] 05:45:00 Test Item Value Reference Range Comments WHITE BLOOD CELL COUNT (BEAKER) (test nsdt=893) 20.0 K/ L 3.5-10.5 RED BLOOD CELL COUNT (BEAKER) (test sobq=782) 4.01 M/ L 4.63-6.08 HEMOGLOBIN (BEAKER) (test lyxl=271) 12.7 GM/DL 13.7-17.5 HEMATOCRIT (BEAKER) (test fdqo=072) 38.8 % 40.1-51.0 MEAN CORPUSCULAR VOLUME (BEAKER) (test hrvj=549) 96.8 fL 79.0-92.2 MEAN CORPUSCULAR HEMOGLOBIN (BEAKER) (test 31.7 pg 25.7-32.2 obih=919) MEAN CORPUSCULAR HEMOGLOBIN CONC (BEAKER) (test 32.7 GM/DL 32.3-36.5 zotz=120) RED CELL DISTRIBUTION WIDTH (BEAKER) (test 15.0 % 11.6-14.4 oonx=146) PLATELET COUNT (BEAKER) (test hxnf=260) 173 K/CU MM 150-450 MEAN PLATELET VOLUME (BEAKER) (test uffe=304) 12.5 fL 9.4-12.4 NUCLEATED RED BLOOD CELLS (BEAKER) (test 0 /100 WBC 0-0 wuty=238) NEUTROPHILS RELATIVE PERCENT (BEAKER) (test 88 % zrtd=531) LYMPHOCYTES RELATIVE PERCENT (BEAKER) (test 4 % zxgk=446) MONOCYTES RELATIVE PERCENT (BEAKER) (test 6 % vfwe=554) EOSINOPHILS RELATIVE PERCENT (BEAKER) (test 0 % jfim=180) BASOPHILS RELATIVE PERCENT (BEAKER) (test 0 % gcnr=101) NEUTROPHILS ABSOLUTE COUNT (BEAKER) (test 17.63 K/ L 1.78-5.38 vbdo=187) LYMPHOCYTES ABSOLUTE COUNT (BEAKER) (test 0.89 K/ L 1.32-3.57 aouv=324) MONOCYTES ABSOLUTE COUNT (BEAKER) (test 1.17 K/ L 0.30-0.82 qdia=231) EOSINOPHILS ABSOLUTE COUNT (BEAKER) (test 0.04 K/ L 0.04-0.54 bocd=170) BASOPHILS ABSOLUTE COUNT (BEAKER) (test 0.03 K/ L 0.01-0.08 qmch=071) IMMATURE GRANULOCYTES-RELATIVE PERCENT (BEAKER) 1 % 0-1 (test teef=7359) POCT-GLUCOSE [id number] 04:25:00 Test Item Value Reference Range Comments POC-GLUCOSE METER (BEAKER) 86 mg/dL 70-110 TESTED AT [address] (test gpvw=0227) [place] [address] POCT-GLUCOSE [id number] 02:04:00 Test Item Value Reference Range Comments POC-GLUCOSE METER (BEAKER) 150 mg/dL 70-110 TESTED AT [address] (test ashc=8348) [place] [address] POCT-GLUCOSE [id number] 01:26:00 Test Item Value Reference Range Comments POC-GLUCOSE METER (BEAKER) 95 mg/dL 70-110 TESTED AT [facility] [address] (test mmxd=2868) [facility] [address] TROPONIN [id number] 00:37:00 Test Item Value Reference Range Comments TROPONIN I (BEAKER) (test jyyz=133) 0.01 ng/mL 0.00-0.03 Troponin I (TnI) levels must be interpreted in the context of the presenting symptoms and the clinical findings. Elevated TnI levels indicate myocardial damage, but are not specific for ischemic heart disease. Elevated TnI levels are seen in patients with other cardiac conditions (including myocarditis and congestive heart failure), and slight TnI elevations occur in patients with other conditions, including sepsis, renal failure, acidosis, acute neurological disease, and persistent tachyarrhythmia.LACTIC ACID, VENOUS, WHOLE [id number] 00:26:00 Test Item Value Reference Range Comments LACTATE BLOOD VENOUS (2) (BEAKER) (test 0.7 mmol/L 0.5-2.2 fpht=9919) Specimen moderately ictericURINALYSIS W/ REFLEX URINE [id number] 21:21:00 Test Item Value Reference Range Comments COLOR (BEAKER) (test srva=500) Dark Yellow CLARITY (BEAKER) (test zzdf=313) Clear SPECIFIC GRAVITY UA (BEAKER) (test foye=324) > 1.001-1.035 PH UA (BEAKER) (test rccd=243) 6.5 5.0-8.0 PROTEIN UA (BEAKER) (test jcfq=075) 30 mg/dL Negative GLUCOSE UA (BEAKER) (test xsiy=456) 500 mg/dL Negative KETONES UA (BEAKER) (test bypq=204) Negative Negative BILIRUBIN UA (BEAKER) (test tygt=994) Positive Negative BLOOD UA (BEAKER) (test ddyo=848) Negative Negative NITRITE UA (BEAKER) (test ukjf=261) Negative Negative LEUKOCYTE ESTERASE UA (BEAKER) (test lnnd=615) Negative Negative UROBILINOGEN UA (BEAKER) (test emil=894) 6.0 mg/dL 0.2-1.0 RBC UA (BEAKER) (test jlyn=762) < /HPF WBC UA (BEAKER) (test gnmr=822) < /HPF MUCUS (BEAKER) (test ymec=5345) Moderate SOURCE(BEAKER) (test fevp=2585) LACTIC ACID, VENOUS, WHOLE [id number] 20:58:00 Test Item Value Reference Range Comments LACTATE BLOOD VENOUS (2) 0.9 mmol/L 0.5-2.2 Specimen slightly hemolyzed (BEAKER) (test xdmv=1865) Specimen slightly ictericCT, [id number] 20:49:00FINAL REPORT CT abdomen and pelvis with contrast. INDICATION: right sided pain COMPARISON: MRI from 12/28/2005 and ultrasound from 04/22/2018 TECHNIQUE: Multiple contiguous transaxial images of the abdomen and pelvis were obtained following the administration of intravenous contrast. This exam was performed according to our departmental dose optimization program which includes automated exposure control, adjustment of the mA and/or kV according to patient size and/or use of iterative reconstructive technique. FINDINGS: The lung bases demonstrate atelectasis. The osseous structures demonstrate degenerative change. The transplant liver appears homogeneous. The gallbladder is absent. There is prominence of the common bile duct. The spleen, pancreas, and adrenal glands are unremarkable. The stomach is underdistended limiting its evaluation. Both kidneys are unremarkable. The urinary bladder is unremarkable. No pelvic masses are seen. There is trace ascites in the abdomen and pelvis. There are dilated small bowel loops in the pelvis with marked wall thickening and edema, suspicious for small bowel enteritis of infectious, inflammatory or vascular etiology including ischemic bowel. The appendix is not clearly visualized. There is no colonic obstruction. There is no fluid collection. There are vascular calcifications. There is no lymphadenopathy in the abdomen and pelvis. IMPRESSION:1. Dilated small bowel loops in the pelvis with marked wall thickening and edema, suspicious for small bowel enteritis including ischemic bowel as above.2. Status post hepatic transplant. Trace ascites. Signed: Jeremías Radford MDReport Verified Date/Time: 11/13/2018 20:49:38 Reading Location: [facility] [id number] [facility] Consult Reading Room RAD, CHEST, 1 VIEW, NON [id number] 19:39: 00Reason for exam:->ABDOMINAL PAINReason for exam:->HEPATIC DISEASEShould this be performed at the bedside?->YesFINAL REPORT Chest one view AP 11/13/2018 7:39 PM CLINICAL INDICATION: ABDOMINAL PAINHEPATIC DISEASE COMPARISON: 12/07/2014 IMPRESSION: There is bibasilar atelectasis, with surgical suture in the left lower lung. Cardiomediastinal contours are within normal limits. The central pulmonary vasculature is not engorged. Signed: Ez Green MDReport Verified Date/Time: 11/13/2018 19:39:32 Reading Location: [facility] Radiology Reading Room [id number] 19:18:00 Test Item Value Reference Range Comments PROCALCITONIN (BEAKER) (test bfms=0752) 0.85 ng/mL <0.05 SEPSIS RISK (ng/mL)Low: 0.05-0.50Intermediate: 0.51-2.00High: & gt;=2.01B-TYPE NATRIURETIC FACTOR (BNP)2018-11-13 18:44:00 Test Item Value Reference Range Comments B-TYPE NATRIURETIC PEPTIDE (BEAKER) (test yjkb=012) 61 pg/mL 0-100 TROPONIN [id number] 18:42:00 Test Item Value Reference Range Comments TROPONIN I (BEAKER) (test qwcv=814) < ng/mL 0.00-0.03 Troponin I (TnI) levels must be interpreted in the context of the presenting symptoms and the clinical findings. Elevated TnI levels indicate myocardial damage, but are not specific for ischemic heart disease. Elevated TnI levels are seen in patients with other cardiac conditions (including myocarditis and congestive heart failure), and slight TnI elevations occur in patients with other conditions, including sepsis, renal failure, acidosis, acute neurological disease, and persistent tachyarrhythmia.[id number] 18:40:00 Test Item Value Reference Range Comments MAGNESIUM (BEAKER) (test ugqj=115) 1.0 mg/dL 1.6-2.6 CREATINE KINASE (CK)2018-11-13 18:39:00 Test Item Value Reference Range Comments CREATINE KINASE TOTAL (BEAKER) (test icnv=256) 14 U/L 29-200 COMPREHENSIVE METABOLIC [id number] 18:38:00 Test Item Value Reference Range Comments TOTAL PROTEIN (BEAKER) 5.7 gm/dL 6.0-8.3 (test giia=516) ALBUMIN (BEAKER) (test 3.0 g/dL 3.5-5.0 hmrj=6071) ALKALINE PHOSPHATASE 271 U/L 40-150 (BEAKER) (test nyfj=273) BILIRUBIN TOTAL (BEAKER) 5.8 mg/dL 0.2-1.2 (test qkus=076) SODIUM (BEAKER) (test 135 meq/L 136-145 drzx=816) POTASSIUM (BEAKER) (test 3.6 meq/L 3.5-5.1 vhuz=532) CHLORIDE (BEAKER) (test 101 meq/L 98-107 bkwd=259) CO2 (BEAKER) (test 26 meq/L 22-29 qktm=389) BLOOD UREA NITROGEN 25 mg/dL 7-21 (BEAKER) (test tguz=664) CREATININE (BEAKER) (test 0.76 mg/dL 0.57-1.25 utkn=265) GLUCOSE RANDOM (BEAKER) 122 mg/dL 70-105 (test mxvv=583) CALCIUM (BEAKER) (test 9.0 mg/dL 8.4-10.2 pkog=794) AST (SGOT) (BEAKER) (test 48 U/L 5-34 ovrw=448) ALT (SGPT) (BEAKER) (test 79 U/L 6-55 fsum=589) EGFR (BEAKER) (test 103 mL/min/1.73 sq ESTIMATED GFR IS NOT krec=9882) m ACCURATE CREATININE CLEARANCE IN PREDICTING GLOMERULAR FILTRATION RATE. ESTIMATED GFR IS NOT APPLICABLE FOR DIALYSIS PATIENTS. Specimen moderately ictericLACTIC ACID, VENOUS, WHOLE [id number] 18:33:00 Test Item Value Reference Range Comments LACTATE BLOOD VENOUS (2) (BEAKER) (test 1.0 mmol/L 0.5-2.2 gjmx=1884) Specimen slightly ictericPT/[id number] 18:32:00 Test Item Value Reference Range Comments PROTIME (BEAKER) (test wekx=632) 13.7 seconds 11.7-14.7 INR (BEAKER) (test qnlq=419) 1.0 <=5.9 PARTIAL THROMBOPLASTIN TIME (BEAKER) (test 27.8 seconds 22.5-36.0 yubq=403) RECOMMENDED COUMADIN/WARFARIN INR THERAPY RANGESSTANDARD DOSE: 2.0 - 3.0 Includes: PROPHYLAXIS forvenous thrombosis, systemic embolization; TREATMENT for venous thrombosis and/or pulmonary embolus.HIGH RISK: Target INR is 2.5-3.5 for patients with mechanical heart valves.[id number] 18:29:00 Test Item Value Reference Range Comments AMMONIA (BEAKER) (test jwub=118) 33 mol/L 18-72 CBC W/PLT COUNT & AUTO [id number] 18:24:00 Test Item Value Reference Range Comments WHITE BLOOD CELL COUNT (BEAKER) (test gikq=297) 22.1 K/ L 3.5-10.5 RED BLOOD CELL COUNT (BEAKER) (test tyrn=968) 4.58 M/ L 4.63-6.08 HEMOGLOBIN (BEAKER) (test bgio=973) 14.6 GM/DL 13.7-17.5 HEMATOCRIT (BEAKER) (test etil=293) 43.5 % 40.1-51.0 MEAN CORPUSCULAR VOLUME (BEAKER) (test uquv=574) 95.0 fL 79.0-92.2 MEAN CORPUSCULAR HEMOGLOBIN (BEAKER) (test 31.9 pg 25.7-32.2 umgq=117) MEAN CORPUSCULAR HEMOGLOBIN CONC (BEAKER) (test 33.6 GM/DL 32.3-36.5 yvew=030) RED CELL DISTRIBUTION WIDTH (BEAKER) (test 14.9 % 11.6-14.4 ezvs=653) PLATELET COUNT (BEAKER) (test wjhp=572) 212 K/CU MM 150-450 MEAN PLATELET VOLUME (BEAKER) (test fjnc=086) 12.0 fL 9.4-12.4 NUCLEATED RED BLOOD CELLS (BEAKER) (test 0 /100 WBC 0-0 exyx=828) NEUTROPHILS RELATIVE PERCENT (BEAKER) (test 85 % hnlg=189) LYMPHOCYTES RELATIVE PERCENT (BEAKER) (test 6 % fzul=030) MONOCYTES RELATIVE PERCENT (BEAKER) (test 7 % jurp=061) EOSINOPHILS RELATIVE PERCENT (BEAKER) (test 0 % jkmf=313) BASOPHILS RELATIVE PERCENT (BEAKER) (test 0 % ahyn=891) NEUTROPHILS ABSOLUTE COUNT (BEAKER) (test 18.80 K/ L 1.78-5.38 udgk=364) LYMPHOCYTES ABSOLUTE COUNT (BEAKER) (test 1.24 K/ L 1.32-3.57 ukyw=557) MONOCYTES ABSOLUTE COUNT (BEAKER) (test 1.50 K/ L 0.30-0.82 bdiz=443) EOSINOPHILS ABSOLUTE COUNT (BEAKER) (test 0.02 K/ L 0.04-0.54 pmth=625) BASOPHILS ABSOLUTE COUNT (BEAKER) (test 0.03 K/ L 0.01-0.08 fxvm=086) IMMATURE GRANULOCYTES-RELATIVE PERCENT (BEAKER) 2 % 0-1 (test kvwq=5476) TACROLIMUS [id number] 12:07:00 Test Item Value Reference Range Comments TACROLIMUS BLOOD (BEAKER) (test empd=700) 7.3 ng/mL 10.0-20.0 Standing lab order; fax results to [phone] 09:58:00 Test Item Value Reference Range Comments MAGNESIUM (BEAKER) (test ubld=175) 1.5 mg/dL 1.6-2.6 Standing lab order; fax results to [phone] lab order; fax results to [phone] lab order; fax results to [phone] METABOLIC [id number] 09:58:00 Test Item Value Reference Range Comments TOTAL PROTEIN (BEAKER) 6.3 gm/dL 6.0-8.3 (test eizk=385) ALBUMIN (BEAKER) (test 3.5 g/dL 3.5-5.0 jeyy=2660) ALKALINE PHOSPHATASE 304 U/L 40-150 (BEAKER) (test khqw=162) BILIRUBIN TOTAL (BEAKER) 4.0 mg/dL 0.2-1.2 (test futk=000) SODIUM (BEAKER) (test 139 meq/L 136-145 xjsx=830) POTASSIUM (BEAKER) (test 3.7 meq/L 3.5-5.1 iixv=608) CHLORIDE (BEAKER) (test 101 meq/L 98-107 sjqe=552) CO2 (BEAKER) (test 30 meq/L 22-29 kvdr=046) BLOOD UREA NITROGEN 21 mg/dL 7-21 (BEAKER) (test wczo=676) CREATININE (BEAKER) (test 0.78 mg/dL 0.57-1.25 iyrc=899) GLUCOSE RANDOM (BEAKER) 213 mg/dL 70-105 (test onxw=191) CALCIUM (BEAKER) (test 9.6 mg/dL 8.4-10.2 kgrh=060) AST (SGOT) (BEAKER) (test 46 U/L 5-34 ybmz=802) ALT (SGPT) (BEAKER) (test 87 U/L 6-55 qyeo=702) EGFR (BEAKER) (test 100 mL/min/1.73 sq ESTIMATED GFR IS NOT wyhq=1819) m ACCURATE CREATININE CLEARANCE IN PREDICTING GLOMERULAR FILTRATION RATE. ESTIMATED GFR IS NOT APPLICABLE FOR DIALYSIS PATIENTS. Standing lab order; fax results to [phone] lab order; fax results to [phone] lab order; fax results to [phone] slightly ictericBILIRUBIN, [id number] 09:58:00 Test Item Value Reference Range Comments BILIRUBIN DIRECT (BEAKER) (test zrnl=236) 2.6 mg/dL 0.1-0.5 Standing lab order; fax results to [phone] lab order; fax results to [phone] lab order; fax results to [phone] W/PLT COUNT & amp; AUTO [id number] 09:46:00 Test Item Value Reference Range Comments WHITE BLOOD CELL COUNT (BEAKER) (test pmgb=954) 17.1 K/ L 3.5-10.5 RED BLOOD CELL COUNT (BEAKER) (test ubsv=503) 4.26 M/ L 4.63-6.08 HEMOGLOBIN (BEAKER) (test zhhs=594) 13.5 GM/DL 13.7-17.5 HEMATOCRIT (BEAKER) (test wzyv=991) 41.3 % 40.1-51.0 MEAN CORPUSCULAR VOLUME (BEAKER) (test jpux=245) 96.9 fL 79.0-92.2 MEAN CORPUSCULAR HEMOGLOBIN (BEAKER) (test 31.7 pg 25.7-32.2 anfx=469) MEAN CORPUSCULAR HEMOGLOBIN CONC (BEAKER) (test 32.7 GM/DL 32.3-36.5 tyny=630) RED CELL DISTRIBUTION WIDTH (BEAKER) (test 15.0 % 11.6-14.4 osnu=897) PLATELET COUNT (BEAKER) (test kaui=477) 190 K/CU MM 150-450 MEAN PLATELET VOLUME (BEAKER) (test zywq=737) 12.7 fL 9.4-12.4 NUCLEATED RED BLOOD CELLS (BEAKER) (test 0 /100 WBC 0-0 xmaz=734) NEUTROPHILS RELATIVE PERCENT (BEAKER) (test 89 % pfou=130) LYMPHOCYTES RELATIVE PERCENT (BEAKER) (test 5 % ofhp=205) MONOCYTES RELATIVE PERCENT (BEAKER) (test 5 % xiww=141) EOSINOPHILS RELATIVE PERCENT (BEAKER) (test 0 % sddp=006) BASOPHILS RELATIVE PERCENT (BEAKER) (test 0 % txcs=145) NEUTROPHILS ABSOLUTE COUNT (BEAKER) (test 15.27 K/ L 1.78-5.38 fpkc=051) LYMPHOCYTES ABSOLUTE COUNT (BEAKER) (test 0.86 K/ L 1.32-3.57 pvth=815) MONOCYTES ABSOLUTE COUNT (BEAKER) (test 0.80 K/ L 0.30-0.82 fbxj=446) EOSINOPHILS ABSOLUTE COUNT (BEAKER) (test 0.00 K/ L 0.04-0.54 datc=362) BASOPHILS ABSOLUTE COUNT (BEAKER) (test 0.02 K/ L 0.01-0.08 nbar=310) IMMATURE GRANULOCYTES-RELATIVE PERCENT (BEAKER) 1 % 0-1 (test wcdb=8014) POCT-GLUCOSE [id number] 11:33:00 Test Item Value Reference Range Comments POC-GLUCOSE METER (BEAKER) 256 mg/dL 70-110 TESTED AT [facility] [address] (test oibl=9124) [facility] [address] TACROLIMUS [id number] 10:34:00 Test Item Value Reference Range Comments TACROLIMUS BLOOD (BEAKER) (test xmoj=875) 10.9 ng/mL 10.0-20.0 HEMOGLOBIN [id number] 08:23:00 Test Item Value Reference Range Comments HEMOGLOBIN A1C (BEAKER) (test lele=818) 11.5 % 4.3-6.1 POCT-GLUCOSE [id number] 08:11:00 Test Item Value Reference Range Comments POC-GLUCOSE METER (BEAKER) 277 mg/dL 70-110 TESTED AT [facility] [address] (test ujbb=6608) [facility] [address] BASIC METABOLIC [id number] 08:10:00 Test Item Value Reference Range Comments SODIUM (BEAKER) (test 132 meq/L 136-145 ulpp=817) POTASSIUM (BEAKER) (test 4.7 meq/L 3.5-5.1 nddg=808) CHLORIDE (BEAKER) (test 103 meq/L 98-107 wbzr=647) CO2 (BEAKER) (test 20 meq/L 22-29 osds=334) BLOOD UREA NITROGEN 18 mg/dL 7-21 (BEAKER) (test wyzu=305) CREATININE (BEAKER) (test 0.80 mg/dL 0.57-1.25 rete=664) GLUCOSE RANDOM (BEAKER) 225 mg/dL 70-105 (test nflf=063) CALCIUM (BEAKER) (test 8.6 mg/dL 8.4-10.2 ujrv=049) EGFR (BEAKER) (test 97 mL/min/1.73 sq m ESTIMATED GFR IS NOT xjkf=1264) ACCURATE CREATININE CLEARANCE IN PREDICTING GLOMERULAR FILTRATION RATE. ESTIMATED GFR IS NOT APPLICABLE FOR DIALYSIS PATIENTS. TSH/FREE T4 IF [id number] 06:56:00 Test Item Value Reference Range Comments THYROID STIMULATING HORMONE (BEAKER) (test 0.98 uIU/mL 0.35-4.94 hogg=205) [id number] 06:53:00 Test Item Value Reference Range Comments PHOSPHORUS (BEAKER) (test uazu=158) 2.1 mg/dL 2.3-4.7 [id number] 06:53:00 Test Item Value Reference Range Comments MAGNESIUM (BEAKER) (test nfpv=337) 1.6 mg/dL 1.6-2.6 HEPATIC FUNCTION [id number] 06:53:00 Test Item Value Reference Range Comments TOTAL PROTEIN (BEAKER) (test kccm=415) 5.7 gm/dL 6.0-8.3 ALBUMIN (BEAKER) (test ylpl=0476) 2.9 g/dL 3.5-5.0 BILIRUBIN TOTAL (BEAKER) (test dako=734) 1.5 mg/dL 0.2-1.2 BILIRUBIN DIRECT (BEAKER) (test fptf=029) 1.0 mg/dL 0.1-0.5 ALKALINE PHOSPHATASE (BEAKER) (test orfn=832) 340 U/L 40-150 AST (SGOT) (BEAKER) (test nxim=998) 51 U/L 5-34 ALT (SGPT) (BEAKER) (test ciyi=260) 93 U/L 6-55 CALCIUM, [id number] 06:53:00 Test Item Value Reference Range Comments CALCIUM IONIZED (BEAKER) (test hkjx=931) 1.08 mmol/L 1.12-1.27 PH, BLOOD (BEAKER) (test xxkp=6162) 7.47 POCT-GLUCOSE [id number] 23:02:00 Test Item Value Reference Range Comments POC-GLUCOSE METER (BEAKER) 358 mg/dL 70-110 TESTED AT [address] (test nxkz=5629) [place] [address] POCT-GLUCOSE [id number] 17:13:00 Test Item Value Reference Range Comments POC-GLUCOSE METER (BEAKER) 257 mg/dL 70-110 TESTED AT [address] (test sdkn=8040) [place] [address] [id number] 14:13:00 Test Item Value Reference Range Comments SODIUM (BEAKER) (test mwof=191) 126 meq/L 136-145 TACROLIMUS [id number] 13:35:00 Test Item Value Reference Range Comments TACROLIMUS BLOOD (BEAKER) (test yzap=082) 12.9 ng/mL 10.0-20.0 POCT-GLUCOSE [id number] 12:40:00 Test Item Value Reference Range Comments POC-GLUCOSE METER (BEAKER) 248 mg/dL 70-110 TESTED AT [address] (test sbyq=6288) [place] [address] POCT-GLUCOSE [id number] 11:35:00 Test Item Value Reference Range Comments POC-GLUCOSE METER (BEAKER) 253 mg/dL 70-110 TESTED AT [address] (test ixoc=9503) [place] [address] OSMOLALITY, [id number] 08:13:00 Test Item Value Reference Range Comments OSMOLALITY, SERUM (BEAKER) (test jbbp=214) 280 mOsm/kg 275-295 OSMOLALITY, [id number] 08:12:00 Test Item Value Reference Range Comments OSMOLALITY URINE (BEAKER) (test lfml=675) 537 mOsm/kg 40-1,400 CHLORIDE, RANDOM [id number] 08:06:00 Test Item Value Reference Range Comments CHLORIDE URINE (BEAKER) (test kzij=566) 114 meq/L Reference Range: No NormalsCREATININE, RANDOM [id number] 08:06:00 Test Item Value Reference Range Comments CREATININE URINE (BEAKER) (test zccn=060) 52.6 mg/dL Reference Range: No NormalsSODIUM, RANDOM [id number] 08:06:00 Test Item Value Reference Range Comments SODIUM URINE (BEAKER) (test ugfc=752) 148 meq/L Reference Range: No NormalsURINALYSIS W/ [id number] 08:05:00 Test Item Value Reference Range Comments COLOR (BEAKER) (test qjeo=293) Yellow CLARITY (BEAKER) (test sthx=071) Clear SPECIFIC GRAVITY UA (BEAKER) (test tagc=999) 1.012 1.001-1.035 PH UA (BEAKER) (test daxu=524) 7.0 5.0-8.0 PROTEIN UA (BEAKER) (test xvpy=031) Negative Negative GLUCOSE UA (BEAKER) (test tcxl=428) 500 mg/dL Negative KETONES UA (BEAKER) (test woly=774) Trace Negative BILIRUBIN UA (BEAKER) (test gtyi=300) Negative Negative BLOOD UA (BEAKER) (test cxfq=916) Negative Negative NITRITE UA (BEAKER) (test hpmw=566) Negative Negative LEUKOCYTE ESTERASE UA (BEAKER) (test yshv=278) Negative Negative UROBILINOGEN UA (BEAKER) (test txnv=510) 6.0 mg/dL 0.2-1.0 RBC UA (BEAKER) (test pzod=013) < /HPF WBC UA (BEAKER) (test dfob=440) 1 /HPF MUCUS (BEAKER) (test chqk=0079) Rare SOURCE(BEAKER) (test aatk=7814) [id number] 07:25:00 Test Item Value Reference Range Comments MAGNESIUM (BEAKER) (test sikf=172) 1.5 mg/dL 1.6-2.6 [id number] 07:25:00 Test Item Value Reference Range Comments PHOSPHORUS (BEAKER) (test heat=941) 2.2 mg/dL 2.3-4.7 BASIC METABOLIC [id number] 07:25:00 Test Item Value Reference Range Comments SODIUM (BEAKER) (test 132 meq/L 136-145 tdep=482) POTASSIUM (BEAKER) (test 4.3 meq/L 3.5-5.1 mlcr=544) CHLORIDE (BEAKER) (test 100 meq/L 98-107 njrv=136) CO2 (BEAKER) (test 24 meq/L 22-29 djbr=338) BLOOD UREA NITROGEN 13 mg/dL 7-21 (BEAKER) (test mtmv=946) CREATININE (BEAKER) (test 0.70 mg/dL 0.57-1.25 phcu=875) GLUCOSE RANDOM (BEAKER) 211 mg/dL 70-105 (test sixs=768) CALCIUM (BEAKER) (test 9.0 mg/dL 8.4-10.2 lcew=952) EGFR (BEAKER) (test 113 mL/min/1.73 sq m ESTIMATED GFR IS NOT zodd=2048) ACCURATE CREATININE CLEARANCE IN PREDICTING GLOMERULAR FILTRATION RATE. ESTIMATED GFR IS NOT APPLICABLE FOR DIALYSIS PATIENTS. Specimen slightly ictericHEPATIC FUNCTION [id number] 07:25:00 Test Item Value Reference Range Comments TOTAL PROTEIN (BEAKER) (test kkpj=956) 6.0 gm/dL 6.0-8.3 ALBUMIN (BEAKER) (test qkwq=8030) 3.1 g/dL 3.5-5.0 BILIRUBIN TOTAL (BEAKER) (test pkhv=897) 2.6 mg/dL 0.2-1.2 BILIRUBIN DIRECT (BEAKER) (test tosw=919) 1.7 mg/dL 0.1-0.5 ALKALINE PHOSPHATASE (BEAKER) (test odri=447) 339 U/L 40-150 AST (SGOT) (BEAKER) (test nlhn=533) 73 U/L 5-34 ALT (SGPT) (BEAKER) (test jetj=959) 113 U/L 6-55 Specimen slightly ictericCALCIUM, [id number] 07:00:00 Test Item Value Reference Range Comments CALCIUM IONIZED (BEAKER) (test ruuh=578) 1.11 mmol/L 1.12-1.27 PH, BLOOD (BEAKER) (test hzlx=7370) 7.43 CBC W/PLT COUNT & AUTO [id number] 06:38:00 Test Item Value Reference Range Comments WHITE BLOOD CELL COUNT (BEAKER) (test zjfl=610) 6.5 K/ L 3.5-10.5 RED BLOOD CELL COUNT (BEAKER) (test ovsq=465) 4.51 M/ L 4.63-6.08 HEMOGLOBIN (BEAKER) (test ejfn=911) 13.8 GM/DL 13.7-17.5 HEMATOCRIT (BEAKER) (test aurd=023) 42.6 % 40.1-51.0 MEAN CORPUSCULAR VOLUME (BEAKER) (test zfgr=517) 94.5 fL 79.0-92.2 MEAN CORPUSCULAR HEMOGLOBIN (BEAKER) (test 30.6 pg 25.7-32.2 ewng=884) MEAN CORPUSCULAR HEMOGLOBIN CONC (BEAKER) (test 32.4 GM/DL 32.3-36.5 tlmj=472) RED CELL DISTRIBUTION WIDTH (BEAKER) (test 14.2 % 11.6-14.4 facm=655) PLATELET COUNT (BEAKER) (test vstc=509) 171 K/CU MM 150-450 MEAN PLATELET VOLUME (BEAKER) (test bljh=703) 12.2 fL 9.4-12.4 NUCLEATED RED BLOOD CELLS (BEAKER) (test 0 /100 WBC 0-0 inbg=723) NEUTROPHILS RELATIVE PERCENT (BEAKER) (test 74 % vdqx=443) LYMPHOCYTES RELATIVE PERCENT (BEAKER) (test 11 % dkuy=344) MONOCYTES RELATIVE PERCENT (BEAKER) (test 12 % pllg=149) EOSINOPHILS RELATIVE PERCENT (BEAKER) (test 2 % nhkb=335) BASOPHILS RELATIVE PERCENT (BEAKER) (test 1 % gnxj=650) NEUTROPHILS ABSOLUTE COUNT (BEAKER) (test 4.79 K/ L 1.78-5.38 dsqr=331) LYMPHOCYTES ABSOLUTE COUNT (BEAKER) (test 0.73 K/ L 1.32-3.57 pelj=485) MONOCYTES ABSOLUTE COUNT (BEAKER) (test 0.75 K/ L 0.30-0.82 wira=727) EOSINOPHILS ABSOLUTE COUNT (BEAKER) (test 0.11 K/ L 0.04-0.54 kkdk=057) BASOPHILS ABSOLUTE COUNT (BEAKER) (test 0.03 K/ L 0.01-0.08 iiyl=845) IMMATURE GRANULOCYTES-RELATIVE PERCENT (BEAKER) 2 % 0-1 (test jnnx=6132) BASIC METABOLIC [id number] 00:32:00 Test Item Value Reference Range Comments SODIUM (BEAKER) (test 129 meq/L 136-145 fomb=931) POTASSIUM (BEAKER) (test 4.1 meq/L 3.5-5.1 kvks=503) CHLORIDE (BEAKER) (test 97 meq/L 98-107 ybfi=223) CO2 (BEAKER) (test 22 meq/L 22-29 psmz=606) BLOOD UREA NITROGEN 15 mg/dL 7-21 (BEAKER) (test vffl=918) CREATININE (BEAKER) (test 0.66 mg/dL 0.57-1.25 jton=739) GLUCOSE RANDOM (BEAKER) 134 mg/dL 70-105 (test fnsj=696) CALCIUM (BEAKER) (test 8.5 mg/dL 8.4-10.2 rlyy=457) EGFR (BEAKER) (test 121 mL/min/1.73 sq m ESTIMATED GFR IS NOT rmvt=9366) ACCURATE CREATININE CLEARANCE IN PREDICTING GLOMERULAR FILTRATION RATE. ESTIMATED GFR IS NOT APPLICABLE FOR DIALYSIS PATIENTS. Specimen slightly ictericTACROLIMUS [id number] 12:22:00 Test Item Value Reference Range Comments TACROLIMUS BLOOD (BEAKER) (test rswq=835) 13.8 ng/mL 10.0-20.0 CBC W/PLT COUNT & AUTO [id number] 10:07:00 Test Item Value Reference Range Comments WHITE BLOOD CELL COUNT (BEAKER) (test naix=904) 13.2 K/ L 3.5-10.5 RED BLOOD CELL COUNT (BEAKER) (test jvav=487) 4.10 M/ L 4.63-6.08 HEMOGLOBIN (BEAKER) (test kevn=998) 13.3 GM/DL 13.7-17.5 HEMATOCRIT (BEAKER) (test imza=478) 40.2 % 40.1-51.0 MEAN CORPUSCULAR VOLUME (BEAKER) (test kvln=416) 98.0 fL 79.0-92.2 MEAN CORPUSCULAR HEMOGLOBIN (BEAKER) (test 32.4 pg 25.7-32.2 ymka=335) MEAN CORPUSCULAR HEMOGLOBIN CONC (BEAKER) (test 33.1 GM/DL 32.3-36.5 cvym=279) RED CELL DISTRIBUTION WIDTH (BEAKER) (test 15.1 % 11.6-14.4 bajq=815) PLATELET COUNT (BEAKER) (test kdlk=120) 198 K/CU MM 150-450 MEAN PLATELET VOLUME (BEAKER) (test jazs=200) 12.7 fL 9.4-12.4 NUCLEATED RED BLOOD CELLS (BEAKER) (test 0 /100 WBC 0-0 mmxf=467) NEUTROPHILS RELATIVE PERCENT (BEAKER) (test 72 % bxpt=301) LYMPHOCYTES RELATIVE PERCENT (BEAKER) (test 20 % qfty=790) MONOCYTES RELATIVE PERCENT (BEAKER) (test 6 % sohx=977) EOSINOPHILS RELATIVE PERCENT (BEAKER) (test 1 % xehc=306) BASOPHILS RELATIVE PERCENT (BEAKER) (test 1 % gseb=511) NEUTROPHILS ABSOLUTE COUNT (BEAKER) (test 9.49 K/ L 1.78-5.38 pdrs=018) LYMPHOCYTES ABSOLUTE COUNT (BEAKER) (test 2.62 K/ L 1.32-3.57 yuot=799) MONOCYTES ABSOLUTE COUNT (BEAKER) (test 0.85 K/ L 0.30-0.82 ulrr=506) EOSINOPHILS ABSOLUTE COUNT (BEAKER) (test 0.06 K/ L 0.04-0.54 qrtt=146) BASOPHILS ABSOLUTE COUNT (BEAKER) (test 0.06 K/ L 0.01-0.08 djuq=666) IMMATURE GRANULOCYTES-RELATIVE PERCENT (BEAKER) 1 % 0-1 (test dmnx=9318) [id number] 09:58:00 Test Item Value Reference Range Comments MAGNESIUM (BEAKER) (test egwl=884) 1.7 mg/dL 1.6-2.6 COMPREHENSIVE METABOLIC [id number] 09:58:00 Test Item Value Reference Range Comments TOTAL PROTEIN (BEAKER) 6.8 gm/dL 6.0-8.3 (test egsg=583) ALBUMIN (BEAKER) (test 3.7 g/dL 3.5-5.0 byjs=8481) ALKALINE PHOSPHATASE 410 U/L 40-150 (BEAKER) (test zjbq=222) BILIRUBIN TOTAL (BEAKER) 1.8 mg/dL 0.2-1.2 (test gcms=455) SODIUM (BEAKER) (test 136 meq/L 136-145 bhaj=685) POTASSIUM (BEAKER) (test 3.9 meq/L 3.5-5.1 tjqw=031) CHLORIDE (BEAKER) (test 102 meq/L 98-107 wyhn=596) CO2 (BEAKER) (test 25 meq/L 22-29 pctu=427) BLOOD UREA NITROGEN 22 mg/dL 7-21 (BEAKER) (test vsxo=114) CREATININE (BEAKER) (test 0.85 mg/dL 0.57-1.25 pjnl=986) GLUCOSE RANDOM (BEAKER) 290 mg/dL 70-105 (test qidz=325) CALCIUM (BEAKER) (test 9.5 mg/dL 8.4-10.2 vaas=834) AST (SGOT) (BEAKER) (test 67 U/L 5-34 jopz=510) ALT (SGPT) (BEAKER) (test 115 U/L 6-55 nxoc=209) EGFR (BEAKER) (test 90 mL/min/1.73 sq m ESTIMATED GFR IS NOT tsya=6528) ACCURATE CREATININE CLEARANCE IN PREDICTING GLOMERULAR FILTRATION RATE. ESTIMATED GFR IS NOT APPLICABLE FOR DIALYSIS PATIENTS. BILIRUBIN, [id number] 09:58:00 Test Item Value Reference Range Comments BILIRUBIN DIRECT (BEAKER) (test zfks=316) 1.1 mg/dL 0.1-0.5 HEPATITIS C PCR, [id number] 06:40:00 Test Item Value Reference Range Comments HCV RESULT COMPONENT (BEAKER) HCV RNA not detected HCV RNA not detected (test qepw=2262) This test uses a Real-Time Polymerase Chain Reaction (RT-PCR) methodology and was performed using NICOLETTE Ampliprep/NICOLETTE TaqMan HCV test kit version 2.0 ( [employer]).Reportable range for this assay is 15 - 100,000, 000 IU per mL (1.18 - 8.00 Log IU/mL).TACROLIMUS [id number] 12:05:00 Test Item Value Reference Range Comments TACROLIMUS BLOOD (BEAKER) (test yfbw=459) 3.1 ng/mL 10.0-20.0 [id number] 09:27:00 Test Item Value Reference Range Comments PHOSPHORUS (BEAKER) (test spgl=877) 2.5 mg/dL 2.3-4.7 [id number] 09:27:00 Test Item Value Reference Range Comments MAGNESIUM (BEAKER) (test hmuu=713) 1.9 mg/dL 1.6-2.6 COMPREHENSIVE METABOLIC [id number] 09:27:00 Test Item Value Reference Range Comments TOTAL PROTEIN (BEAKER) 6.8 gm/dL 6.0-8.3 (test mydc=452) ALBUMIN (BEAKER) (test 3.6 g/dL 3.5-5.0 prpq=8792) ALKALINE PHOSPHATASE 414 U/L 40-150 (BEAKER) (test lthr=703) BILIRUBIN TOTAL (BEAKER) 1.6 mg/dL 0.2-1.2 (test eayv=945) SODIUM (BEAKER) (test 137 meq/L 136-145 rdru=593) POTASSIUM (BEAKER) (test 4.5 meq/L 3.5-5.1 yuni=687) CHLORIDE (BEAKER) (test 101 meq/L 98-107 rbyx=183) CO2 (BEAKER) (test 29 meq/L 22-29 iukw=582) BLOOD UREA NITROGEN 20 mg/dL 7-21 (BEAKER) (test eobd=382) CREATININE (BEAKER) (test 0.84 mg/dL 0.57-1.25 omdp=616) GLUCOSE RANDOM (BEAKER) 274 mg/dL 70-105 (test qhjn=431) CALCIUM (BEAKER) (test 9.4 mg/dL 8.4-10.2 armr=684) AST (SGOT) (BEAKER) (test 72 U/L 5-34 wvav=532) ALT (SGPT) (BEAKER) (test 138 U/L 6-55 pflm=687) EGFR (BEAKER) (test 92 mL/min/1.73 sq m ESTIMATED GFR IS NOT eikf=1446) ACCURATE CREATININE CLEARANCE IN PREDICTING GLOMERULAR FILTRATION RATE. ESTIMATED GFR IS NOT APPLICABLE FOR DIALYSIS PATIENTS. BILIRUBIN, [id number] 09:27:00 Test Item Value Reference Range Comments BILIRUBIN DIRECT (BEAKER) (test sceb=841) 1.0 mg/dL 0.1-0.5 CBC W/PLT COUNT & AUTO [id number] 09:12:00 Test Item Value Reference Range Comments WHITE BLOOD CELL COUNT (BEAKER) (test kwis=782) 9.5 K/ L 3.5-10.5 RED BLOOD CELL COUNT (BEAKER) (test zgeb=499) 3.82 M/ L 4.63-6.08 HEMOGLOBIN (BEAKER) (test ykwt=457) 12.1 GM/DL 13.7-17.5 HEMATOCRIT (BEAKER) (test tdds=427) 37.3 % 40.1-51.0 MEAN CORPUSCULAR VOLUME (BEAKER) (test jifu=215) 97.6 fL 79.0-92.2 MEAN CORPUSCULAR HEMOGLOBIN (BEAKER) (test 31.7 pg 25.7-32.2 jxvw=102) MEAN CORPUSCULAR HEMOGLOBIN CONC (BEAKER) (test 32.4 GM/DL 32.3-36.5 inca=427) RED CELL DISTRIBUTION WIDTH (BEAKER) (test 16.1 % 11.6-14.4 lcnn=798) PLATELET COUNT (BEAKER) (test brtf=024) 287 K/CU MM 150-450 MEAN PLATELET VOLUME (BEAKER) (test uqjr=666) 11.8 fL 9.4-12.4 NUCLEATED RED BLOOD CELLS (BEAKER) (test 0 /100 WBC 0-0 qqnq=414) NEUTROPHILS RELATIVE PERCENT (BEAKER) (test 60 % zcxm=948) LYMPHOCYTES RELATIVE PERCENT (BEAKER) (test 29 % vvfl=566) MONOCYTES RELATIVE PERCENT (BEAKER) (test 8 % zcjq=461) EOSINOPHILS RELATIVE PERCENT (BEAKER) (test 1 % pvqu=865) BASOPHILS RELATIVE PERCENT (BEAKER) (test 0 % oppy=299) NEUTROPHILS ABSOLUTE COUNT (BEAKER) (test 5.74 K/ L 1.78-5.38 ouzm=079) LYMPHOCYTES ABSOLUTE COUNT (BEAKER) (test 2.79 K/ L 1.32-3.57 lzfa=757) MONOCYTES ABSOLUTE COUNT (BEAKER) (test 0.77 K/ L 0.30-0.82 ttdg=322) EOSINOPHILS ABSOLUTE COUNT (BEAKER) (test 0.05 K/ L 0.04-0.54 asey=980) BASOPHILS ABSOLUTE COUNT (BEAKER) (test 0.04 K/ L 0.01-0.08 xeng=537) IMMATURE GRANULOCYTES-RELATIVE PERCENT (BEAKER) 1 % 0-1 (test umsz=4978) TACROLIMUS [id number] 10:58:00 Test Item Value Reference Range Comments TACROLIMUS BLOOD (BEAKER) (test vlej=876) 8.0 ng/mL 10.0-20.0 [id number] 09:14:00 Test Item Value Reference Range Comments MAGNESIUM (BEAKER) (test uhhb=922) 1.7 mg/dL 1.6-2.6 COMPREHENSIVE METABOLIC [id number] 09:14:00 Test Item Value Reference Range Comments TOTAL PROTEIN (BEAKER) 6.8 gm/dL 6.0-8.3 (test gkbk=915) ALBUMIN (BEAKER) (test 3.6 g/dL 3.5-5.0 gzmf=7435) ALKALINE PHOSPHATASE 392 U/L 40-150 (BEAKER) (test vgzw=794) BILIRUBIN TOTAL (BEAKER) 1.7 mg/dL 0.2-1.2 (test zoex=942) SODIUM (BEAKER) (test 138 meq/L 136-145 ujzm=778) POTASSIUM (BEAKER) (test 3.9 meq/L 3.5-5.1 syzu=349) CHLORIDE (BEAKER) (test 104 meq/L 98-107 cocy=259) CO2 (BEAKER) (test 25 meq/L 22-29 dhss=589) BLOOD UREA NITROGEN 22 mg/dL 7-21 (BEAKER) (test jabg=993) CREATININE (BEAKER) (test 0.85 mg/dL 0.57-1.25 badj=526) GLUCOSE RANDOM (BEAKER) 160 mg/dL 70-105 (test liad=001) CALCIUM (BEAKER) (test 9.4 mg/dL 8.4-10.2 pgri=005) AST (SGOT) (BEAKER) (test 99 U/L 5-34 tbdn=575) ALT (SGPT) (BEAKER) (test 141 U/L 6-55 qesu=600) EGFR (BEAKER) (test 90 mL/min/1.73 sq m ESTIMATED GFR IS NOT bjbp=4917) ACCURATE CREATININE CLEARANCE IN PREDICTING GLOMERULAR FILTRATION RATE. ESTIMATED GFR IS NOT APPLICABLE FOR DIALYSIS PATIENTS. BILIRUBIN, [id number] 09:14:00 Test Item Value Reference Range Comments BILIRUBIN DIRECT (BEAKER) (test ckke=221) 0.9 mg/dL 0.1-0.5 CBC W/PLT COUNT & AUTO [id number] 08:51:00 Test Item Value Reference Range Comments WHITE BLOOD CELL COUNT (BEAKER) (test hteb=912) 9.4 K/ L 3.5-10.5 RED BLOOD CELL COUNT (BEAKER) (test raaz=796) 3.96 M/ L 4.63-6.08 HEMOGLOBIN (BEAKER) (test cciz=220) 12.3 GM/DL 13.7-17.5 HEMATOCRIT (BEAKER) (test drvf=132) 37.0 % 40.1-51.0 MEAN CORPUSCULAR VOLUME (BEAKER) (test rbbw=664) 93.4 fL 79.0-92.2 MEAN CORPUSCULAR HEMOGLOBIN (BEAKER) (test 31.1 pg 25.7-32.2 cbym=561) MEAN CORPUSCULAR HEMOGLOBIN CONC (BEAKER) (test 33.2 GM/DL 32.3-36.5 gymb=093) RED CELL DISTRIBUTION WIDTH (BEAKER) (test 16.3 % 11.6-14.4 uokp=143) PLATELET COUNT (BEAKER) (test xxmr=041) 195 K/CU MM 150-450 MEAN PLATELET VOLUME (BEAKER) (test nlxa=700) 12.6 fL 9.4-12.4 NUCLEATED RED BLOOD CELLS (BEAKER) (test 0 /100 WBC 0-0 yggv=061) NEUTROPHILS RELATIVE PERCENT (BEAKER) (test 49 % ckry=589) LYMPHOCYTES RELATIVE PERCENT (BEAKER) (test 41 % bbyg=531) MONOCYTES RELATIVE PERCENT (BEAKER) (test 8 % hexw=721) EOSINOPHILS RELATIVE PERCENT (BEAKER) (test 1 % vpzj=614) BASOPHILS RELATIVE PERCENT (BEAKER) (test 1 % sitd=692) NEUTROPHILS ABSOLUTE COUNT (BEAKER) (test 4.64 K/ L 1.78-5.38 sote=386) LYMPHOCYTES ABSOLUTE COUNT (BEAKER) (test 3.86 K/ L 1.32-3.57 qcjh=834) MONOCYTES ABSOLUTE COUNT (BEAKER) (test 0.73 K/ L 0.30-0.82 alca=521) EOSINOPHILS ABSOLUTE COUNT (BEAKER) (test 0.05 K/ L 0.04-0.54 bvie=921) BASOPHILS ABSOLUTE COUNT (BEAKER) (test 0.05 K/ L 0.01-0.08 bdsi=688) IMMATURE GRANULOCYTES-RELATIVE PERCENT (BEAKER) 1 % 0-1 (test dela=2137) TACROLIMUS [id number] 12:30:00 Test Item Value Reference Range Comments TACROLIMUS BLOOD (BEAKER) (test wwax=708) 11.2 ng/mL 10.0-20.0 [id number] 09:33:00 Test Item Value Reference Range Comments MAGNESIUM (BEAKER) (test tduf=286) 1.6 mg/dL 1.6-2.6 COMPREHENSIVE METABOLIC [id number] 09:33:00 Test Item Value Reference Range Comments TOTAL PROTEIN (BEAKER) 6.8 gm/dL 6.0-8.3 (test irjz=579) ALBUMIN (BEAKER) (test 3.5 g/dL 3.5-5.0 roqj=1019) ALKALINE PHOSPHATASE 507 U/L 40-150 (BEAKER) (test ksks=770) BILIRUBIN TOTAL (BEAKER) 1.7 mg/dL 0.2-1.2 (test jyrg=760) SODIUM (BEAKER) (test 133 meq/L 136-145 nfge=385) POTASSIUM (BEAKER) (test 3.8 meq/L 3.5-5.1 rsqg=847) CHLORIDE (BEAKER) (test 99 meq/L 98-107 xomb=674) CO2 (BEAKER) (test 26 meq/L 22-29 mimn=773) BLOOD UREA NITROGEN 23 mg/dL 7-21 (BEAKER) (test stcm=681) CREATININE (BEAKER) (test 0.86 mg/dL 0.57-1.25 atwk=253) GLUCOSE RANDOM (BEAKER) 105 mg/dL 70-105 (test wdvy=946) CALCIUM (BEAKER) (test 9.6 mg/dL 8.4-10.2 ntgd=882) AST (SGOT) (BEAKER) (test 137 U/L 5-34 nnbk=973) ALT (SGPT) (BEAKER) (test 240 U/L 6-55 gxku=128) EGFR (BEAKER) (test 89 mL/min/1.73 sq m ESTIMATED GFR IS NOT joqd=0202) ACCURATE CREATININE CLEARANCE IN PREDICTING GLOMERULAR FILTRATION RATE. ESTIMATED GFR IS NOT APPLICABLE FOR DIALYSIS PATIENTS. BILIRUBIN, [id number] 09:33:00 Test Item Value Reference Range Comments BILIRUBIN DIRECT (BEAKER) (test oozp=398) 1.2 mg/dL 0.1-0.5 CBC W/PLT COUNT & AUTO [id number] 09:15:00 Test Item Value Reference Range Comments WHITE BLOOD CELL COUNT (BEAKER) (test xaok=271) 11.1 K/ L 3.5-10.5 RED BLOOD CELL COUNT (BEAKER) (test fros=991) 4.10 M/ L 4.63-6.08 HEMOGLOBIN (BEAKER) (test lges=360) 12.5 GM/DL 13.7-17.5 HEMATOCRIT (BEAKER) (test cnwq=722) 37.2 % 40.1-51.0 MEAN CORPUSCULAR VOLUME (BEAKER) (test hfpl=607) 90.7 fL 79.0-92.2 MEAN CORPUSCULAR HEMOGLOBIN (BEAKER) (test 30.5 pg 25.7-32.2 pwnu=326) MEAN CORPUSCULAR HEMOGLOBIN CONC (BEAKER) (test 33.6 GM/DL 32.3-36.5 qmbl=590) RED CELL DISTRIBUTION WIDTH (BEAKER) (test 16.2 % 11.6-14.4 twnu=126) PLATELET COUNT (BEAKER) (test qmad=383) 244 K/CU MM 150-450 MEAN PLATELET VOLUME (BEAKER) (test dvfr=382) 12.0 fL 9.4-12.4 NUCLEATED RED BLOOD CELLS (BEAKER) (test 0 /100 WBC 0-0 iwoe=307) NEUTROPHILS RELATIVE PERCENT (BEAKER) (test 58 % nwer=077) LYMPHOCYTES RELATIVE PERCENT (BEAKER) (test 34 % pwjt=878) MONOCYTES RELATIVE PERCENT (BEAKER) (test 7 % lsnx=019) EOSINOPHILS RELATIVE PERCENT (BEAKER) (test 0 % pjyl=620) BASOPHILS RELATIVE PERCENT (BEAKER) (test 0 % rlbi=147) NEUTROPHILS ABSOLUTE COUNT (BEAKER) (test 6.46 K/ L 1.78-5.38 ypje=539) LYMPHOCYTES ABSOLUTE COUNT (BEAKER) (test 3.76 K/ L 1.32-3.57 xelv=984) MONOCYTES ABSOLUTE COUNT (BEAKER) (test 0.78 K/ L 0.30-0.82 mqpg=018) EOSINOPHILS ABSOLUTE COUNT (BEAKER) (test 0.04 K/ L 0.04-0.54 altw=047) BASOPHILS ABSOLUTE COUNT (BEAKER) (test 0.02 K/ L 0.01-0.08 jtst=372) IMMATURE GRANULOCYTES-RELATIVE PERCENT (BEAKER) 1 % 0-1 (test byzg=3925) TACROLIMUS [id number] 10:33:00 Test Item Value Reference Range Comments TACROLIMUS BLOOD (BEAKER) (test hruv=296) 10.1 ng/mL 10.0-20.0 [id number] 08:28:00 Test Item Value Reference Range Comments MAGNESIUM (BEAKER) (test hbte=488) 1.5 mg/dL 1.6-2.6 COMPREHENSIVE METABOLIC [id number] 08:28:00 Test Item Value Reference Range Comments TOTAL PROTEIN (BEAKER) 6.7 gm/dL 6.0-8.3 (test lxpo=076) ALBUMIN (BEAKER) (test 3.4 g/dL 3.5-5.0 kokz=1555) ALKALINE PHOSPHATASE 497 U/L 40-150 (BEAKER) (test dynt=255) BILIRUBIN TOTAL (BEAKER) 1.7 mg/dL 0.2-1.2 (test aixb=473) SODIUM (BEAKER) (test 136 meq/L 136-145 wuuz=732) POTASSIUM (BEAKER) (test 3.8 meq/L 3.5-5.1 zcbf=690) CHLORIDE (BEAKER) (test 104 meq/L 98-107 zels=154) CO2 (BEAKER) (test 24 meq/L 22-29 tbkn=113) BLOOD UREA NITROGEN 25 mg/dL 7-21 (BEAKER) (test wmao=835) CREATININE (BEAKER) (test 0.98 mg/dL 0.57-1.25 kdic=222) GLUCOSE RANDOM (BEAKER) 134 mg/dL 70-105 (test nnpn=832) CALCIUM (BEAKER) (test 9.3 mg/dL 8.4-10.2 irzq=136) AST (SGOT) (BEAKER) (test 221 U/L 5-34 hgus=536) ALT (SGPT) (BEAKER) (test 311 U/L 6-55 gmyk=273) EGFR (BEAKER) (test 77 mL/min/1.73 sq m ESTIMATED GFR IS NOT sqgp=1693) ACCURATE CREATININE CLEARANCE IN PREDICTING GLOMERULAR FILTRATION RATE. ESTIMATED GFR IS NOT APPLICABLE FOR DIALYSIS PATIENTS. BILIRUBIN, [id number] 08:28:00 Test Item Value Reference Range Comments BILIRUBIN DIRECT (BEAKER) (test chso=457) 1.1 mg/dL 0.1-0.5 CBC W/PLT COUNT & AUTO [id number] 08:10:00 Test Item Value Reference Range Comments WHITE BLOOD CELL COUNT (BEAKER) (test evhh=207) 9.3 K/ L 3.5-10.5 RED BLOOD CELL COUNT (BEAKER) (test cswx=437) 3.99 M/ L 4.63-6.08 HEMOGLOBIN (BEAKER) (test crou=216) 12.3 GM/DL 13.7-17.5 HEMATOCRIT (BEAKER) (test jcbw=369) 36.2 % 40.1-51.0 MEAN CORPUSCULAR VOLUME (BEAKER) (test jhkz=251) 90.7 fL 79.0-92.2 MEAN CORPUSCULAR HEMOGLOBIN (BEAKER) (test 30.8 pg 25.7-32.2 nvtj=103) MEAN CORPUSCULAR HEMOGLOBIN CONC (BEAKER) (test 34.0 GM/DL 32.3-36.5 nxtu=676) RED CELL DISTRIBUTION WIDTH (BEAKER) (test 14.9 % 11.6-14.4 tbkv=608) PLATELET COUNT (BEAKER) (test arjx=919) 302 K/CU MM 150-450 MEAN PLATELET VOLUME (BEAKER) (test pvnu=724) 11.6 fL 9.4-12.4 NUCLEATED RED BLOOD CELLS (BEAKER) (test 0 /100 WBC 0-0 ucbe=583) NEUTROPHILS RELATIVE PERCENT (BEAKER) (test 50 % zkrl=523) LYMPHOCYTES RELATIVE PERCENT (BEAKER) (test 41 % hvhi=206) MONOCYTES RELATIVE PERCENT (BEAKER) (test 8 % kfuf=967) EOSINOPHILS RELATIVE PERCENT (BEAKER) (test 0 % tqjy=450) BASOPHILS RELATIVE PERCENT (BEAKER) (test 0 % khwj=439) NEUTROPHILS ABSOLUTE COUNT (BEAKER) (test 4.65 K/ L 1.78-5.38 exgg=569) LYMPHOCYTES ABSOLUTE COUNT (BEAKER) (test 3.82 K/ L 1.32-3.57 qvvs=380) MONOCYTES ABSOLUTE COUNT (BEAKER) (test 0.72 K/ L 0.30-0.82 xkhk=369) EOSINOPHILS ABSOLUTE COUNT (BEAKER) (test 0.03 K/ L 0.04-0.54 enqe=954) BASOPHILS ABSOLUTE COUNT (BEAKER) (test 0.01 K/ L 0.01-0.08 pkog=168) IMMATURE GRANULOCYTES-RELATIVE PERCENT (BEAKER) 1 % 0-1 (test ijpm=1256) TACROLIMUS [id number] 13:58:00 Test Item Value Reference Range Comments TACROLIMUS BLOOD (BEAKER) (test ndsz=013) 9.2 ng/mL 10.0-20.0 [id number] 09:16:00 Test Item Value Reference Range Comments MAGNESIUM (BEAKER) (test ifkk=464) 2.1 mg/dL 1.6-2.6 COMPREHENSIVE METABOLIC [id number] 09:16:00 Test Item Value Reference Range Comments TOTAL PROTEIN (BEAKER) 7.7 gm/dL 6.0-8.3 (test shxd=293) ALBUMIN (BEAKER) (test 3.9 g/dL 3.5-5.0 pkum=5498) ALKALINE PHOSPHATASE 501 U/L 40-150 (BEAKER) (test tkkh=659) BILIRUBIN TOTAL (BEAKER) 2.0 mg/dL 0.2-1.2 (test pjem=810) SODIUM (BEAKER) (test 132 meq/L 136-145 pevg=282) POTASSIUM (BEAKER) (test 4.0 meq/L 3.5-5.1 fdbj=446) CHLORIDE (BEAKER) (test 98 meq/L 98-107 vlkm=442) CO2 (BEAKER) (test 20 meq/L 22-29 ocwe=110) BLOOD UREA NITROGEN 23 mg/dL 7-21 (BEAKER) (test lnrz=926) CREATININE (BEAKER) (test 1.10 mg/dL 0.57-1.25 npkt=146) GLUCOSE RANDOM (BEAKER) 342 mg/dL 70-105 (test iwkf=471) CALCIUM (BEAKER) (test 10.2 mg/dL 8.4-10.2 ways=768) AST (SGOT) (BEAKER) (test 71 U/L 5-34 dnnj=368) ALT (SGPT) (BEAKER) (test 160 U/L 6-55 rgka=432) EGFR (BEAKER) (test 67 mL/min/1.73 sq m ESTIMATED GFR IS NOT hquv=6614) ACCURATE CREATININE CLEARANCE IN PREDICTING GLOMERULAR FILTRATION RATE. ESTIMATED GFR IS NOT APPLICABLE FOR DIALYSIS PATIENTS. BILIRUBIN, [id number] 09:16:00 Test Item Value Reference Range Comments BILIRUBIN DIRECT (BEAKER) (test lyub=002) 1.2 mg/dL 0.1-0.5 CBC W/PLT COUNT & AUTO [id number] 08:56:00 Test Item Value Reference Range Comments WHITE BLOOD CELL COUNT (BEAKER) (test dgsx=278) 9.7 K/ L 3.5-10.5 RED BLOOD CELL COUNT (BEAKER) (test dpaz=192) 4.42 M/ L 4.63-6.08 HEMOGLOBIN (BEAKER) (test hnvc=832) 13.6 GM/DL 13.7-17.5 HEMATOCRIT (BEAKER) (test exhp=784) 40.2 % 40.1-51.0 MEAN CORPUSCULAR VOLUME (BEAKER) (test zqbn=844) 91.0 fL 79.0-92.2 MEAN CORPUSCULAR HEMOGLOBIN (BEAKER) (test 30.8 pg 25.7-32.2 eexk=883) MEAN CORPUSCULAR HEMOGLOBIN CONC (BEAKER) (test 33.8 GM/DL 32.3-36.5 atvm=216) RED CELL DISTRIBUTION WIDTH (BEAKER) (test 15.2 % 11.6-14.4 cpdj=638) PLATELET COUNT (BEAKER) (test fpfp=562) 217 K/CU MM 150-450 MEAN PLATELET VOLUME (BEAKER) (test mkro=454) 12.3 fL 9.4-12.4 NUCLEATED RED BLOOD CELLS (BEAKER) (test 0 /100 WBC 0-0 exhi=337) NEUTROPHILS RELATIVE PERCENT (BEAKER) (test 62 % kjyj=410) LYMPHOCYTES RELATIVE PERCENT (BEAKER) (test 30 % esck=589) MONOCYTES RELATIVE PERCENT (BEAKER) (test 8 % lqfu=859) EOSINOPHILS RELATIVE PERCENT (BEAKER) (test 0 % qpyh=825) BASOPHILS RELATIVE PERCENT (BEAKER) (test 0 % lfcn=631) NEUTROPHILS ABSOLUTE COUNT (BEAKER) (test 5.98 K/ L 1.78-5.38 pcrz=883) LYMPHOCYTES ABSOLUTE COUNT (BEAKER) (test 2.87 K/ L 1.32-3.57 ainq=374) MONOCYTES ABSOLUTE COUNT (BEAKER) (test 0.73 K/ L 0.30-0.82 ribq=146) EOSINOPHILS ABSOLUTE COUNT (BEAKER) (test 0.02 K/ L 0.04-0.54 odzh=351) BASOPHILS ABSOLUTE COUNT (BEAKER) (test 0.02 K/ L 0.01-0.08 dyoi=153) IMMATURE GRANULOCYTES-RELATIVE PERCENT (BEAKER) 0 % 0-1 (test buqe=8241) TACROLIMUS [id number] 11:33:00 Test Item Value Reference Range Comments TACROLIMUS BLOOD (BEAKER) (test qtxf=995) 6.6 ng/mL 10.0-20.0 [id number] 08:54:00 Test Item Value Reference Range Comments MAGNESIUM (BEAKER) (test qwwg=066) 2.1 mg/dL 1.6-2.6 COMPREHENSIVE METABOLIC [id number] 08:54:00 Test Item Value Reference Range Comments TOTAL PROTEIN (BEAKER) 7.1 gm/dL 6.0-8.3 (test ocdp=654) ALBUMIN (BEAKER) (test 3.6 g/dL 3.5-5.0 whxc=2167) ALKALINE PHOSPHATASE 416 U/L 40-150 (BEAKER) (test vvbb=480) BILIRUBIN TOTAL (BEAKER) 1.6 mg/dL 0.2-1.2 (test xaeq=696) SODIUM (BEAKER) (test 131 meq/L 136-145 najs=285) POTASSIUM (BEAKER) (test 3.6 meq/L 3.5-5.1 ynhy=664) CHLORIDE (BEAKER) (test 101 meq/L 98-107 jyle=783) CO2 (BEAKER) (test 22 meq/L 22-29 cvgc=479) BLOOD UREA NITROGEN 18 mg/dL 7-21 (BEAKER) (test yehd=642) CREATININE (BEAKER) (test 0.80 mg/dL 0.57-1.25 pmkv=289) GLUCOSE RANDOM (BEAKER) 220 mg/dL 70-105 (test imck=416) CALCIUM (BEAKER) (test 9.1 mg/dL 8.4-10.2 ipxa=974) AST (SGOT) (BEAKER) (test 63 U/L 5-34 bban=504) ALT (SGPT) (BEAKER) (test 126 U/L 6-55 zknz=455) EGFR (BEAKER) (test 97 mL/min/1.73 sq m ESTIMATED GFR IS NOT vplr=9336) ACCURATE CREATININE CLEARANCE IN PREDICTING GLOMERULAR FILTRATION RATE. ESTIMATED GFR IS NOT APPLICABLE FOR DIALYSIS PATIENTS. BILIRUBIN, [id number] 08:54:00 Test Item Value Reference Range Comments BILIRUBIN DIRECT (BEAKER) (test ymif=235) 1.0 mg/dL 0.1-0.5 CBC W/PLT COUNT & AUTO [id number] 07:57:00 Test Item Value Reference Range Comments WHITE BLOOD CELL COUNT (BEAKER) (test yhbx=984) 11.3 K/ L 3.5-10.5 RED BLOOD CELL COUNT (BEAKER) (test ieep=183) 4.21 M/ L 4.63-6.08 HEMOGLOBIN (BEAKER) (test ooco=825) 12.8 GM/DL 13.7-17.5 HEMATOCRIT (BEAKER) (test awmu=650) 37.8 % 40.1-51.0 MEAN CORPUSCULAR VOLUME (BEAKER) (test sxre=464) 89.8 fL 79.0-92.2 MEAN CORPUSCULAR HEMOGLOBIN (BEAKER) (test 30.4 pg 25.7-32.2 ngwr=914) MEAN CORPUSCULAR HEMOGLOBIN CONC (BEAKER) (test 33.9 GM/DL 32.3-36.5 pfwp=481) RED CELL DISTRIBUTION WIDTH (BEAKER) (test 15.7 % 11.6-14.4 mmeb=922) PLATELET COUNT (BEAKER) (test gozo=312) 215 K/CU MM 150-450 MEAN PLATELET VOLUME (BEAKER) (test gecz=982) 12.4 fL 9.4-12.4 NUCLEATED RED BLOOD CELLS (BEAKER) (test 0 /100 WBC 0-0 vrim=689) NEUTROPHILS RELATIVE PERCENT (BEAKER) (test 66 % zmvm=681) LYMPHOCYTES RELATIVE PERCENT (BEAKER) (test 25 % dqzm=299) MONOCYTES RELATIVE PERCENT (BEAKER) (test 8 % hjii=031) EOSINOPHILS RELATIVE PERCENT (BEAKER) (test 0 % fadh=137) BASOPHILS RELATIVE PERCENT (BEAKER) (test 0 % afkm=281) NEUTROPHILS ABSOLUTE COUNT (BEAKER) (test 7.44 K/ L 1.78-5.38 ovkh=568) LYMPHOCYTES ABSOLUTE COUNT (BEAKER) (test 2.80 K/ L 1.32-3.57 mjzk=004) MONOCYTES ABSOLUTE COUNT (BEAKER) (test 0.92 K/ L 0.30-0.82 fhej=558) EOSINOPHILS ABSOLUTE COUNT (BEAKER) (test 0.03 K/ L 0.04-0.54 jtac=499) BASOPHILS ABSOLUTE COUNT (BEAKER) (test 0.02 K/ L 0.01-0.08 fyhk=106) IMMATURE GRANULOCYTES-RELATIVE PERCENT (BEAKER) 1 % 0-1 (test fnyn=0596) U/S, ABDOMINAL, WITH [id number] 12:22:00FINAL REPORT Abdominal Doppler Ultrasound Clinical Diagnosis: [...] otherwise unremarkable Doppler interrogation. Signed: Marie Alexandre MDReport Verified Date/Time: 05/08/2018 12:22:52 Reading Location: [address] Ultrasound Reading Room TISSUE [id number] 13:45:00Surgical Pathology Report Case: [id number] Authorizing Provider: Gisel Villegas MD Collected: 2017 [id number] Ordering Location: [facility] Radiology Main Received : 04/22/2018 5999 Pathologist: Roney Mcdonald MD Specimen: Biopsy, Liver, Tx Bx The addendum is being issued to report the results of immunostain for CK7 and C4d. The diagnosis is unchanged.RESULTSImmunostain for CK7 shows confirms focal absence of bile ducts. There is cholangiolar proliferationand biliary metaplasia of the hepatocytes.Immunostain for C4d is negative for significant staining. [id number], [id number] electronically signed by Roney Mcdonald MD on at 1:45 PMLIVER ALLOGRAFT, ULTRASOUND-GUIDED NEEDLE BIOPSY (S/P OLT IN 2006)- ACUTE T-CELL MEDIATED REJECTION- CHRONIC DUCTOPENIC REJECTION- PORTAL/ PERIPORTAL AND FOCAL BRIDGING FIBROSIS- SEE COMMENT Signing Pathologist Direct Phone Line: [phone] signed by Roney Mcdonald MD on at 11:44 AMPreliminary result electronically signed by Roney Mcdonald MD on 04/23/2018 at 5:58 PMImmunostainsfor C4d and CK7 are being performed and the results will be reported as an addendum.[id number], 83922 X 4S/P OLT for HCV in 2006, [...] developed and its performance characteristics determined by [facility], Pathology Laboratory. It has not been cleared [...] to perform high complexity clinical laboratory testing.TACROLIMUS [id number] 11:16:00 Test Item Value Reference Range Comments TACROLIMUS BLOOD (TARIK) (test solj=031) 7.9 ng/mL 10.0-20.0 [id number] 09:17:00 Test Item Value Reference Range Comments MAGNESIUM (BEAKER) (test ltzx=306) 2.0 mg/dL 1.6-2.6 COMPREHENSIVE METABOLIC [id number] 09:17:00 Test Item Value Reference Range Comments TOTAL PROTEIN (BEAKER) 7.3 gm/dL 6.0-8.3 (test voec=897) ALBUMIN (BEAKER) (test 3.7 g/dL 3.5-5.0 yfbg=4049) ALKALINE PHOSPHATASE 392 U/L 40-150 (BEAKER) (test nsfq=542) BILIRUBIN TOTAL (BEAKER) 1.3 mg/dL 0.2-1.2 (test safe=608) SODIUM (BEAKER) (test 138 meq/L 136-145 gouj=540) POTASSIUM (BEAKER) (test 3.6 meq/L 3.5-5.1 dsnr=082) CHLORIDE (BEAKER) (test 107 meq/L 98-107 bhpn=785) CO2 (BEAKER) (test 21 meq/L 22-29 pbaj=722) BLOOD UREA NITROGEN 18 mg/dL 7-21 (BEAKER) (test rety=871) CREATININE (BEAKER) (test 0.82 mg/dL 0.57-1.25 pdar=081) GLUCOSE RANDOM (BEAKER) 114 mg/dL 70-105 (test gdsj=625) CALCIUM (BEAKER) (test 9.1 mg/dL 8.4-10.2 vadk=125) AST (SGOT) (BEAKER) (test 57 U/L 5-34 wbmu=649) ALT (SGPT) (BEAKER) (test 123 U/L 6-55 dtnr=221) EGFR (BEAKER) (test 94 mL/min/1.73 sq m ESTIMATED GFR IS NOT msfb=1805) ACCURATE CREATININE CLEARANCE IN PREDICTING GLOMERULAR FILTRATION RATE. ESTIMATED GFR IS NOT APPLICABLE FOR DIALYSIS PATIENTS. BILIRUBIN, [id number] 09:17:00 Test Item Value Reference Range Comments BILIRUBIN DIRECT (BEAKER) (test egjo=152) 0.9 mg/dL 0.1-0.5 CBC W/PLT COUNT & AUTO [id number] 08:29:00 Test Item Value Reference Range Comments WHITE BLOOD CELL COUNT (BEAKER) (test ngab=830) 11.1 K/ L 3.5-10.5 RED BLOOD CELL COUNT (BEAKER) (test oexc=545) 4.20 M/ L 4.63-6.08 HEMOGLOBIN (BEAKER) (test fwot=099) 12.5 GM/DL 13.7-17.5 HEMATOCRIT (BEAKER) (test elyn=933) 38.2 % 40.1-51.0 MEAN CORPUSCULAR VOLUME (BEAKER) (test vqqe=939) 91.0 fL 79.0-92.2 MEAN CORPUSCULAR HEMOGLOBIN (BEAKER) (test 29.8 pg 25.7-32.2 tcce=600) MEAN CORPUSCULAR HEMOGLOBIN CONC (BEAKER) (test 32.7 GM/DL 32.3-36.5 abnk=065) RED CELL DISTRIBUTION WIDTH (BEAKER) (test 15.5 % 11.6-14.4 oqub=199) PLATELET COUNT (BEAKER) (test flmb=231) 268 K/CU MM 150-450 MEAN PLATELET VOLUME (BEAKER) (test ahiy=679) 12.1 fL 9.4-12.4 NUCLEATED RED BLOOD CELLS (BEAKER) (test 0 /100 WBC 0-0 qnen=556) NEUTROPHILS RELATIVE PERCENT (BEAKER) (test 66 % fqcw=187) LYMPHOCYTES RELATIVE PERCENT (BEAKER) (test 25 % dusa=081) MONOCYTES RELATIVE PERCENT (BEAKER) (test 9 % vzcb=383) EOSINOPHILS RELATIVE PERCENT (BEAKER) (test 0 % csgd=615) BASOPHILS RELATIVE PERCENT (BEAKER) (test 0 % byld=749) NEUTROPHILS ABSOLUTE COUNT (BEAKER) (test 7.32 K/ L 1.78-5.38 eojo=454) LYMPHOCYTES ABSOLUTE COUNT (BEAKER) (test 2.72 K/ L 1.32-3.57 cwdi=828) MONOCYTES ABSOLUTE COUNT (BEAKER) (test 0.97 K/ L 0.30-0.82 ybjs=381) EOSINOPHILS ABSOLUTE COUNT (BEAKER) (test 0.00 K/ L 0.04-0.54 unhe=611) BASOPHILS ABSOLUTE COUNT (BEAKER) (test 0.01 K/ L 0.01-0.08 ynky=590) IMMATURE GRANULOCYTES-RELATIVE PERCENT (BEAKER) 1 % 0-1 (test rutv=8637) TACROLIMUS [id number] 12:29:00 Test Item Value Reference Range Comments TACROLIMUS BLOOD (BEAKER) (test qwzi=618) 12.9 ng/mL 10.0-20.0 [id number] 09:28:00 Test Item Value Reference Range Comments MAGNESIUM (BEAKER) (test llek=490) 1.7 mg/dL 1.6-2.6 COMPREHENSIVE METABOLIC [id number] 09:28:00 Test Item Value Reference Range Comments TOTAL PROTEIN (BEAKER) 8.3 gm/dL 6.0-8.3 (test ztkk=389) ALBUMIN (BEAKER) (test 3.9 g/dL 3.5-5.0 ydqo=4025) ALKALINE PHOSPHATASE 541 U/L 40-150 (BEAKER) (test ehrw=201) BILIRUBIN TOTAL (BEAKER) 1.5 mg/dL 0.2-1.2 (test usph=087) SODIUM (BEAKER) (test 139 meq/L 136-145 gtjs=956) POTASSIUM (BEAKER) (test 3.6 meq/L 3.5-5.1 ieql=355) CHLORIDE (BEAKER) (test 106 meq/L 98-107 xpbe=995) CO2 (BEAKER) (test 23 meq/L 22-29 adaf=504) BLOOD UREA NITROGEN 14 mg/dL 7-21 (BEAKER) (test epdw=883) CREATININE (BEAKER) (test 0.83 mg/dL 0.57-1.25 akqa=101) GLUCOSE RANDOM (BEAKER) 106 mg/dL 70-105 (test qzik=733) CALCIUM (BEAKER) (test 9.6 mg/dL 8.4-10.2 rhpp=693) AST (SGOT) (BEAKER) (test 90 U/L 5-34 emgc=075) ALT (SGPT) (BEAKER) (test 88 U/L 6-55 woak=765) EGFR (BEAKER) (test 93 mL/min/1.73 sq m ESTIMATED GFR IS NOT uvcr=6900) ACCURATE CREATININE CLEARANCE IN PREDICTING GLOMERULAR FILTRATION RATE. ESTIMATED GFR IS NOT APPLICABLE FOR DIALYSIS PATIENTS. BILIRUBIN, [id number] 09:28:00 Test Item Value Reference Range Comments BILIRUBIN DIRECT (BEAKER) (test kabg=283) 1.0 mg/dL 0.1-0.5 CBC W/PLT COUNT & AUTO [id number] 08:52:00 Test Item Value Reference Range Comments WHITE BLOOD CELL COUNT (BEAKER) (test firb=000) 5.7 K/ L 3.5-10.5 RED BLOOD CELL COUNT (BEAKER) (test bofa=965) 4.44 M/ L 4.63-6.08 HEMOGLOBIN (BEAKER) (test yjqq=842) 13.3 GM/DL 13.7-17.5 HEMATOCRIT (BEAKER) (test rqvu=383) 41.2 % 40.1-51.0 MEAN CORPUSCULAR VOLUME (BEAKER) (test obie=627) 92.8 fL 79.0-92.2 MEAN CORPUSCULAR HEMOGLOBIN (BEAKER) (test 30.0 pg 25.7-32.2 xfha=903) MEAN CORPUSCULAR HEMOGLOBIN CONC (BEAKER) (test 32.3 GM/DL 32.3-36.5 rfuq=689) RED CELL DISTRIBUTION WIDTH (BEAKER) (test 15.3 % 11.6-14.4 janh=845) PLATELET COUNT (BEAKER) (test fxho=181) 249 K/CU MM 150-450 MEAN PLATELET VOLUME (BEAKER) (test tcbh=557) 12.0 fL 9.4-12.4 NUCLEATED RED BLOOD CELLS (BEAKER) (test 0 /100 WBC 0-0 dlas=839) NEUTROPHILS RELATIVE PERCENT (BEAKER) (test 41 % mgdk=349) LYMPHOCYTES RELATIVE PERCENT (BEAKER) (test 43 % gwky=427) MONOCYTES RELATIVE PERCENT (BEAKER) (test 12 % mtam=567) EOSINOPHILS RELATIVE PERCENT (BEAKER) (test 3 % yjzj=288) BASOPHILS RELATIVE PERCENT (BEAKER) (test 2 % nnpp=517) NEUTROPHILS ABSOLUTE COUNT (BEAKER) (test 2.35 K/ L 1.78-5.38 bnzi=136) LYMPHOCYTES ABSOLUTE COUNT (BEAKER) (test 2.45 K/ L 1.32-3.57 cbqg=546) MONOCYTES ABSOLUTE COUNT (BEAKER) (test 0.67 K/ L 0.30-0.82 uwqk=207) EOSINOPHILS ABSOLUTE COUNT (BEAKER) (test 0.16 K/ L 0.04-0.54 cwfp=988) BASOPHILS ABSOLUTE COUNT (BEAKER) (test 0.10 K/ L 0.01-0.08 aqen=480) IMMATURE GRANULOCYTES-RELATIVE PERCENT (BEAKER) 0 % 0-1 (test cacn=4679) U/S, BIOPSY, [id number] 17:39:00Reason for Exam:->liver transplant Elevated liver enzymesLocation->[facility] Hospital[facility] Biopsy: Pertinent clinical information: [...] random transplant liver biopsy Signed: Marie Alexandre Verified Date/Time: 04/22/2018 17:39:27 Reading Location: [facility] [id number] Ultrasound Reading Room Electronically signed by: MARIE ALEXANDRE M.D. on 06/2018 05:39 [id number] 10:56:00 Test Item Value Reference Range Comments PROTIME (BEAKER) (test wujc=105) 15.1 seconds 11.7-14.7 INR (BEAKER) (test qrge=129) 1.2 <=5.9 PARTIAL THROMBOPLASTIN TIME (BEAKER) (test 32.0 seconds 22.5-36.0 xtnj=438) RECOMMENDED COUMADIN/WARFARIN INR THERAPY RANGESSTANDARD DOSE: 2.0 - 3.0 Includes: PROPHYLAXIS forvenous thrombosis, systemic embolization; TREATMENT for venous thrombosis and/or pulmonary embolus.HIGH RISK: Target INR is 2.5-3.5 for patients with mechanical heart valves.PLATELET [id number] 10:44:00 Test Item Value Reference Range Comments PLATELET COUNT (BEAKER) (test wzrx=403) 269 K/CU MM 150-450 HEPATITIS C PCR, [id number] 19:20:00 Test Item Value Reference Range Comments HCV RESULT COMPONENT (BEAKER) HCV RNA not detected HCV RNA not detected (test zzqk=4150) This test uses a Real-Time Polymerase Chain Reaction (RT-PCR) methodology and was performed using NICOLETTE Ampliprep/NICOLETTE TaqMan HCV test kit version 2.0 ( [employer]).Reportable range for this assay is 15 - 100,000, 000 IU per mL (1.18 - 8.00 Log IU/mL).TACROLIMUS [id number] 12:56:00 Test Item Value Reference Range Comments TACROLIMUS BLOOD (BEAKER) (test drks=798) 9.4 ng/mL 10.0-20.0 [id number] 09:48:00 Test Item Value Reference Range Comments PHOSPHORUS (BEAKER) (test nwbd=648) 2.1 mg/dL 2.3-4.7 [id number] 09:48:00 Test Item Value Reference Range Comments MAGNESIUM (BEAKER) (test ruua=028) 2.2 mg/dL 1.6-2.6 COMPREHENSIVE METABOLIC [id number] 09:48:00 Test Item Value Reference Range Comments TOTAL PROTEIN (BEAKER) 8.1 gm/dL 6.0-8.3 (test dzjg=632) ALBUMIN (BEAKER) (test 3.8 g/dL 3.5-5.0 ffpo=8009) ALKALINE PHOSPHATASE 534 U/L 40-150 (BEAKER) (test yesk=658) BILIRUBIN TOTAL (BEAKER) 1.8 mg/dL 0.2-1.2 (test wwuw=446) SODIUM (BEAKER) (test 139 meq/L 136-145 rbja=267) POTASSIUM (BEAKER) (test 4.4 meq/L 3.5-5.1 gjii=571) CHLORIDE (BEAKER) (test 104 meq/L 98-107 jylr=654) CO2 (BEAKER) (test 28 meq/L 22-29 anrn=876) BLOOD UREA NITROGEN 16 mg/dL 7-21 (BEAKER) (test wgdz=805) CREATININE (BEAKER) (test 0.78 mg/dL 0.57-1.25 hlou=711) GLUCOSE RANDOM (BEAKER) 106 mg/dL 70-105 (test inkr=238) CALCIUM (BEAKER) (test 9.5 mg/dL 8.4-10.2 nzwv=411) AST (SGOT) (BEAKER) (test 80 U/L 5-34 jpuz=728) ALT (SGPT) (BEAKER) (test 74 U/L 6-55 fbbm=091) EGFR (BEAKER) (test 100 mL/min/1.73 sq ESTIMATED GFR IS NOT ilbf=3156) m ACCURATE CREATININE CLEARANCE IN PREDICTING GLOMERULAR FILTRATION RATE. ESTIMATED GFR IS NOT APPLICABLE FOR DIALYSIS PATIENTS. BILIRUBIN, [id number] 09:48:00 Test Item Value Reference Range Comments BILIRUBIN DIRECT (BEAKER) (test jpwe=820) 1.1 mg/dL 0.1-0.5 CBC W/PLT COUNT & AUTO [id number] 09:33:00 Test Item Value Reference Range Comments WHITE BLOOD CELL COUNT (BEAKER) (test xgwm=269) 5.1 K/ L 3.5-10.5 RED BLOOD CELL COUNT (BEAKER) (test exoj=561) 4.56 M/ L 4.63-6.08 HEMOGLOBIN (BEAKER) (test nznn=933) 13.6 GM/DL 13.7-17.5 HEMATOCRIT (BEAKER) (test dimy=829) 42.9 % 40.1-51.0 MEAN CORPUSCULAR VOLUME (BEAKER) (test skcj=388) 94.1 fL 79.0-92.2 MEAN CORPUSCULAR HEMOGLOBIN (BEAKER) (test 29.8 pg 25.7-32.2 skgr=575) MEAN CORPUSCULAR HEMOGLOBIN CONC (BEAKER) (test 31.7 GM/DL 32.3-36.5 qror=542) RED CELL DISTRIBUTION WIDTH (BEAKER) (test 15.6 % 11.6-14.4 zbxj=702) PLATELET COUNT (BEAKER) (test oopq=117) 251 K/CU MM 150-450 MEAN PLATELET VOLUME (BEAKER) (test fepr=359) 12.2 fL 9.4-12.4 NUCLEATED RED BLOOD CELLS (BEAKER) (test 0 /100 WBC 0-0 uwpm=122) NEUTROPHILS RELATIVE PERCENT (BEAKER) (test 42 % thfy=645) LYMPHOCYTES RELATIVE PERCENT (BEAKER) (test 39 % gxat=696) MONOCYTES RELATIVE PERCENT (BEAKER) (test 13 % zsjq=133) EOSINOPHILS RELATIVE PERCENT (BEAKER) (test 3 % hqlc=941) BASOPHILS RELATIVE PERCENT (BEAKER) (test 2 % engg=865) NEUTROPHILS ABSOLUTE COUNT (BEAKER) (test 2.14 K/ L 1.78-5.38 blyh=544) LYMPHOCYTES ABSOLUTE COUNT (BEAKER) (test 1.99 K/ L 1.32-3.57 xdxz=348) MONOCYTES ABSOLUTE COUNT (BEAKER) (test 0.63 K/ L 0.30-0.82 jbuc=121) EOSINOPHILS ABSOLUTE COUNT (BEAKER) (test 0.17 K/ L 0.04-0.54 iyru=811) BASOPHILS ABSOLUTE COUNT (BEAKER) (test 0.12 K/ L 0.01-0.08 once=452) IMMATURE GRANULOCYTES-RELATIVE PERCENT (BEAKER) 0 % 0-1 (test spcq=5266)
[2018-11-26] MEDS ORDERED: GLUCAGON 1 MG/VIAL IM PRN (18:08)
[2018-11-26] MEDS ORDERED: D50W 25 GM/50 ML SYRINGE IV PRN (18:08)
[2018-11-26 18:47] LABS: Absolute Lymphocytes (CBC) 0.4 K/uL (0.7-4.9); Absolute Monocytes 1.1 K/uL (0.1-1.3); Absolute Neutrophil 16.3 K/uL (1.8-8.0); Basophils % 0.1 % (0-1.3); Hematocrit 38.9 % (39.6-49.0); Lymphocytes % 2.4 % (15.3-44.8); MPV 9.6 fL (7.6-11.3); Monocytes % 6.4 % (3.3-12.3); RBC Red Blood Cell Count 4.12 M/uL (4.33-5.43)
[2018-11-26 18:51] LABS: Protime INR 1.09
[2018-11-26 18:58] LABS: Urine Appearance CLEAR; Urine Bilirubin NEGATIVE (NEG); Urine Blood NEGATIVE (NEG); Urine Color YELLOW; Urine Glucose 2+ (NEG); Urine Protein NEGATIVE (NEG); Urine pH 6.5 (5.0-7.0)
[2018-11-26 19:09] LABS: ALT/SGPT 105 U/L (12-78); AST/SGOT 66 U/L (15-37); Albumin 2.3 g/dL (3.4-5.0); Alkaline Phosphatase 789 U/L (45-117); BUN Blood Urea Nitrogen 23 mg/dL (7-18); Bicarbonate 30 mmol/L (21-32); Bilirubin Total 1.7 mg/dL (0.2-1.0); Glucose Level 273 mg/dL (74-106); Protein, Total 5.8 g/dL (6.4-8.2); Sodium Level 135 mmol/L (136-145)
[2018-11-26 19:21] LABS: Urine Microscopic Reflex NO UMIC
[2018-11-26 19:50] LABS: Platelet Estimate ADEQ
[2018-11-26 19:51] LABS: Anisocytosis 1+; Blood Morphology Comment NOTED (NOT SEEN); Platelets, Giant FEW; Polychromasia SLIGHT
[2018-11-26] MEDS: MYCOPHENOLATE MOFETIL 750 MG PO SCH (21:00)
[2018-11-26] MEDS: TACROLIMUS 3 MG PO SCH (21:00)
[2018-11-26] MEDS: ENOXAPARIN 60 MG/0.6 ML SQ SCH (21:50)
[2018-11-26] MEDS: ASPIRIN EC 81 MG TAB PO SCH (21:50)
[2018-11-26] MEDS: INSULIN -REGULAR HUMAN 50 UNIT/0.5 ML ML SQ SCH (22:48)
[2018-11-27] MEDS: TACROLIMUS 4 MG PO SCH (05:50)
--- NOTE | 2018-11-27 08:06 | RAD REPORT ---
EXAM DESCRIPTION: Buffy Pa And Lat (2 Views)11/26/2018 10:03 pm CLINICAL HISTORY: Cough COMPARISON: May 2018 FINDINGS: Mild chronic appearing lung opacities are noted. The lungs appear clear of acute infiltrate. The heart is normal size IMPRESSION: No acute abnormalities displayed
[2018-11-27] MEDS ORDERED: ASPIRIN EC 81 MG TAB PO SCH (09:00)
[2018-11-27] MEDS: MYCOPHENOLATE MOFETIL 750 MG PO SCH ×2 (09:00→21:00)
[2018-11-27 09:24] LABS: Urine Bacteria NONE SEEN /HPF (NONE SEEN); Urine RBC <5 /HPF (NONE SEEN)
[2018-11-27 09:25] LABS: Urine Culture Reflex Order NOT NEEDED; Urine Sperm PRESENT (NONE SEEN)
[2018-11-27] MEDS: INSULIN -REGULAR HUMAN 50 UNIT/0.5 ML ML SQ SCH ×4 (09:27→20:50)
[2018-11-27] MEDS: ENOXAPARIN 60 MG/0.6 ML SQ SCH ×2 (09:28→20:41)
[2018-11-27] MEDS: predniSONE 20 MG TAB PO SCH (09:28)
[2018-11-27] MEDS: ASPIRIN EC 81 MG TAB PO SCH (09:29)
[2018-11-27] MEDS: TACROLIMUS 3 MG PO SCH (21:00)
[2018-11-28] MEDS: TACROLIMUS 4 MG PO SCH (05:01)
[2018-11-28 05:57] LABS: Absolute Lymphocytes (CBC) 0.9 K/uL (0.7-4.9); Absolute Neutrophil 9.7 K/uL (1.8-8.0); Basophils % 0.2 % (0-1.3); Eosinophils % 0.1 % (0-4.4); MPV 10.1 fL (7.6-11.3); Monocytes % 8.5 % (3.3-12.3); RBC Red Blood Cell Count 3.91 M/uL (4.33-5.43)
--- NOTE | 2018-11-28 06:28 | HP ---
Date of Admission: 11/26/2018 Chief Complaint: Left leg pain. History Of Present Illness: A 68-year-old male who was brought to the office because of pain and swe lling of the left leg. Outpatient duplex study showed evidence of long segment of thrombus involving popliteal vein and down. The patient was admitted for observation for different reasons. One is th at the patient is on medications for liver transplant planned projection. Outpatient lab could not b e done to see his platelet level and other parameters that would change the treatment. Past Medical History: Positive for hepatitis C, cirrhosis, and type 2 diabetes. Past Surgical History: Positive for hand surgery and liver transplant. Family History: Noncontributory. Personal History: No known allergies. Home Medicines: Please refer to the chart. Review of Systems: Constitutional: No history of fever, chills, or rigors. Respiratory: No shortness of breath. Physical Examination: General: Revealed 68-year-old male in moderate pain. HEENT: Otherwise, negative. Neck: Supple. JVD negative. Chest: Clear. Heart: Regular. Abdomen: Soft. Extremities: There is diffuse redness and swelling of the left leg, below knee. Laboratory Data: White count 17,000. Chem profile; elevation of liver enzymes noted. Assessment: 1.Acute deep venous thrombosis. 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 3.Hepatitis C and cirrhosis. 4.Type 2 diabetes, requiring insulin. Plan: The patient will receive Lovenox. Pharmacy consultation report said he needs Coumadin. Howev , an opinion will be obtained from Hematology Service to see what would be good for long-term oral anticoagulation. Once that is done, the patient will be discharged. ANTHONY/RITCHIE Voice ID: [id number]
[2018-11-28] MEDS: INSULIN -REGULAR HUMAN 50 UNIT/0.5 ML ML SQ SCH ×2 (08:41→12:47)
[2018-11-28] MEDS: ENOXAPARIN 60 MG/0.6 ML SQ SCH (08:42)
[2018-11-28] MEDS: predniSONE 20 MG TAB PO SCH (08:42)
[2018-11-28] MEDS: ASPIRIN EC 81 MG TAB PO SCH (08:42)
[2018-11-28] MEDS: MYCOPHENOLATE MOFETIL 750 MG PO SCH (08:47)
[2018-11-28 10:21] LABS: Anisocytosis 1+; Blood Morphology Comment NOTED (NOT SEEN); Platelet Estimate ADEQ; Polychromasia 1+; Urine White Blood Cell Casts DIFF
--- NOTE | 2018-11-28 19:20 | CON ---
Date of Consultation: 11/27/2018 Reason For Consult: Acute deep vein thrombosis post liver transplant. Consulting Physician: Michele Aleman MD. History Of Present Illness: Mr. Pelaez is a 68-year-old who was hospitalized on the 26 of November after he presented to Dr. Parson's office with complaints of left leg, mainly calf swelling and pain f or about 2 days. An outpatient venous Doppler study done on 11/26/2018 revealed an acute thrombus pa rtially filling the left popliteal vein down to the posterior tibial vein on the left side. He has a history of liver transplant approximately 12 years ago and is currently undergoing therapy for rejec tion of his transplant. He was hospitalized for anticoagulation and to decide what would be the best anticoagulant going forward, which is why I was consulted. Mr. Pelaez underwent a liver transplant 12 years ago for end-stage liver disease due to hepatitis C. Since then, he has been cured of his hepatitis C and says he was doing extremely well until a couple years ago when he stopped taking his anti-rejection medications regularly and stopped following up wi th the liver Center at [facility]. After 2 years when he went back for a followup around May 2018, his liver enzymes were elevated and he was told that his body was rejecting the transpla nted liver. He was started on increased doses of mycophenolate, tacrolimus and started on prednisone 60 mg daily. He says his liver enzymes started to come down only a couple of months ago and the pre dnisone was scaled back to 50 mg daily, which he is supposed to be on now. Approximately 3 weeks ago , he was hospitalized for what appears to be a bacterial peritonitis and underwent an upper endoscopy and colonoscopy with biopsies. He was discharged home after 5 days of intravenous antibiotics and s ays he has been feeling well since then. He denies any history of bleeding, major bleeding or bleeding requiring transfusions in the past. Th ere is no previous history of deep vein thrombosis. He denies any rash, nausea, vomiting, or diarrhe a. There is no complaints of pruritus. There is no complaints of anorexia or weight loss. He denie s any fevers, chills, or sweats. Review of Systems: Otherwise unremarkable. Past Medical History: Significant for: 1.Hepatitis C. 2.End-stage liver disease, status post transplant. 3.Type 2 diabetes. Past Surgical History: Significant for the liver transplant approximately 12 years ago and hand surg andres. Medications: His home medications were as follows: 1.Prednisone 50 mg p.o. daily. 2.Mycophenolate 750 mg p.o. b.i.d. 3.Tacrolimus 4 mg tablets 4 tablets q.a.m. and 3 tablets at bedtime. While here in the hospital, he is on an insulin sliding scale and on Lovenox 60 mg subcu q.12 hours i n addition to the above. Allergies: HE HAS NO KNOWN DRUG ALLERGIES. Social/family History: Mr. Pelaez is . His was at his bedside. 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 Family historyis not sign ificant for deep vein thrombosis or pulmonary embolism. Physical Examination: General: Mr. Stephens was resting comfortably when I saw him yesterday evening. Vital Signs: Temperature was 98 Fahrenheit at 4 p.m., pulse 74, respirations 20, blood pressure 124/ 78, saturating at 94% to 96% on room air. He says his leg was feeling much better since his hospital ization. HEENT: Revealed no pallor, cyanosis, or icterus. Lymph Node Survey: Reveals no palpable lymphadenopathy in the neck, axilla, or groin. Chest: Clear to auscultation. Heart: Heart sounds reveal normal S1, S2. No gallops or murmurs. Abdomen: Soft, nondistended with no evidence of palpable liver or spleen or ascites. Neurologic: Mr. Pelaez was alert and oriented with no evidence of acute deficits. Extremities: Reveal evidence of varicose veins and spider veins in both lower extremities. There wa s no evidence of significant left calf edema or tenderness. Laboratory Data: On admission, his white count was 17,800; hemoglobin 12.8; hematocrit 38.9; platele t count was 289,000. PT 12.8, INR of 1.09, PTT was normal at 26.2. Chemistries on admission reveale d an elevated glucose of 273. His bilirubin was elevated at 1.7 with an AST of 66, ALT of 105, and a lkaline phosphatase of 789. Albumin was reduced at 2.3. He did get a chest x-ray on admission, ic h revealed no acute abnormality. Assessment And Plan: Mr. Pelaez is a 68-year-old status post liver transplant, currently undergoing t ransplant rejection therapy who presented with: 1.Acute left lower extremity deep vein thrombosis. This is a provoked in both deep vein thrombosis in the setting of transplant rejection. He is currently on Lovenox 1 mg/kg subcu b.i.d. and doing we ll. I would recommend we transition him to oral Pradaxa 150 mg b.i.d. for treatment of the deep vein thrombosis. We discussed that he should stay on anticoagulation until transplant rejection has reso lved since that appears to be the provoking factor here. We will do a limited hypercoagulable workup mainly to look for an acquired factor when he follows up with me in clinic. We discussed and he is well aware of the risk of increased bleeding as a result of oral anticoagulation and was asked to rep ort to the emergency room if he notes significant rectal bleeding or bleeding from any other site. 2.Leukocytosis. This is likely reactive due to steroids transplant rejection and acute illness. We will follow up with his white count as an outpatient. 3.Status post liver transplant. He will continue on all of his anti-rejection medications including prednisone and follow up with the transplant center at [facility] as advised. Thank you for asking me to see him. I will follow up with him in clinic next week and then periodica lly thereafter. DON/RITCHIE Voice ID: [id number] Report ID: [id number]
== END 2018-11-28 13:50 | disposition home or self-care (01) ==
LOC: 2ND 17:47
PROVIDERS: ADMIT Internal Medicine; ATTEND Internal Medicine
DX: I82.432 Acute embolism and thrombosis of left popliteal vein (principal); B19.20 Unspecified viral hepatitis C without hepatic coma; K74.60 Unspecified cirrhosis of liver; E11.9 Type 2 diabetes mellitus without complications; T86.41 Liver transplant rejection
CPT/HCPCS: 36415 ×2; 71046; 80053; 81003; 81015; 82962 ×7; 85025 ×2; 85610; 85652; 85730; 86140; 87040; G0378; G0379; J1650 ×4; J7512